=== PATIENT | female | born 1950 | race Caucasian/White ===

== ENCOUNTER 2017-10-25 23:05 | Emergency (ER) | payer MEDICARE, SELFPAY ==
[2017-10-25 23:15] VITALS: BP 160/74; PULSE 87; RESP 16; TEMP 36.3; O2SAT 97
[2017-10-25 23:59] LABS: Add Manual Diff / Slide Review NO; Basophils Percent Auto 0.8 % (0-2); Eosinophils Percent Auto 2.5 % (2-4); Hematocrit 38.7 % (36-46); Hemoglobin 13.1 g/dL (12.0-16.0); Lymphocytes Percent Auto 28.8 % (25-40); Mean Corpuscular HGB Conc 33.9 % (30-36); Mean Corpuscular Hemoglobin 29.3 PG (26-34); Mean Corpuscular Volume 86.3 fL (80-100); Monocytes Percent Auto 7.5 % (3-14); Neutrophils Absolute Auto 4600 /uL (3000-5900); Neutrophils Percent Auto 60.4 % (50-75); Platelet Count 259 X10^3/uL (150-400); Red Blood Cell Count 4.48 X10^6/uL (4.0-5.2); Red Cell Distribution Width 13.2 % (11.6-14.8); White Blood Cell Count 7.6 X10^3/uL (4.5-11.0)
[2017-10-26] LABS: RBC Urine 30-100/HPF (0-5/HPF)
[2017-10-26 00:01] LABS: Bacteria Urine Few (2-10); Culture Indicated Urine Specimen Cultured; Squamous Epithelial Cell Urine 0-1 /HPF; WBC Urine 0-1/HPF (0-5/HPF)
[2017-10-26 00:05] LABS: Alanine Aminotransferase 54 IU/L (9-52); Albumin Globulin Ratio 1.4 (1.0-2.8); Alkaline Phosphatase 141 U/L (38-126); Aspartate Aminotransferase 49 IU/L (14-36); BUN Creatinine Ratio 28.3 (6-22); Bilirubin Total 0.3 mg/dL (0.2-1.3); Blood Urea Nitrogen 17 mg/dL (7-17); Calcium 8.8 mg/dL (8.4-10.2); Carbon Dioxide 28 mmol/L (22-32); Chloride 102 mmol/L (98-107); Estimated Glomerular Filt Rate > 60.0 mL/min (>60); Globulin 2.9 g/dL (1.7-4.1); Glucose 137 mg/dL (80-110); HEMOLYSIS < 15 (0-50); Lipase 119 U/L (23-300); Potassium 3.9 mmol/L (3.4-5.1); Sodium 139 mmol/L (137-145); Total Protein 6.9 g/dL (6.3-8.2)
--- NOTE | 2017-10-26 00:07 | ED.FEMALEGU ---
HPI - Female Genitourinary General Chief complaint: Urogenital-Female Stated complaint: KIDNEY STONES AND VOMITING Time Seen by Provider: 10/25/17 23:14 Source: patient Mode of arrival: ambulatory Limitations: no limitations History of Present Illness HPI Narrative: 67-year-old female with a longstanding history of renal stones here for evaluation of which she states feels like a renal stone. States it has been going on for approximately a day. No fevers. Does have some dysuria. She states that in the past she has had to have lithotripsy to remove the stones. Has not tried anything at home for it. Related Data Home Medications Medication Instructions Recorded Confirmed No Known Home Medications 10/25/17 10/25/17 Allergies Allergy/AdvReac Type Severity Reaction Status Date / Time No Known Drug Allergies Allergy Verified 10/25/17 23:28 Review of Systems Constitutional Denies chills, Denies fever(s), Denies lethargy and Denies weakness Cardiovascular Denies dyspnea and Denies dyspnea on exertion Respiratory Denies cough, Denies dyspnea, Denies dyspnea on exertion and Denies wheezing Gastrointestinal Gastrointestinal: Reports abdominal pain, Denies melena, Denies constipation, Reports nausea and Denies vomiting Genitourinary Reports urinary frequency, Reports difficulty voiding, Reports dysuria, Reports flank pain, Denies urinary incontinence and Reports urinary urgency Musculoskeletal Denies back pain, Denies muscle weakness, Denies numbness and Denies tingling Neurologic Denies numbness, Denies tingling and Denies weakness Hematologic/Lymphatic Denies easy bruising Allergic/Immunologic Denies wheezing [facility] Social History Smoking Status: Never smoker Exam Initial Vital Signs Initial Vital Signs: Vital Signs Temperature 97.4 F L 10/25/17 23:15 Pulse Rate 87 10/25/17 23:15 Respiratory Rate 16 10/25/17 23:15 Blood Pressure 160/74 H 10/25/17 23:15 Pulse Oximetry 97 10/25/17 23:15 Resp Effort & Inspection: normal respiratory effort, able to speak in complete sentences, no respiratory distress and no use of accessory muscles Auscultation: clear to auscultation bilaterally, no rales, no rhonchi and no wheezes Cardio Rate: regular rate Rhythm: regular rhythm Heart Sounds: no click, no gallops, no murmurs and no rubs Pulses: normal peripheral pulses GI Inspection: non-distended Palpation: soft, no hepatosplenomegaly, No guarding, No pulsatile mass and No tender Auscultation: normal bowel sounds Back/Spine/Pelvis Back: No CVA tenderness Skin General: no rashes or lesions noted, No jaundice and No petechiae Neuro General: alert, oriented x3, gait normal and no focal motor deficits Speech: speech normal Course Orders Ordered: ED Orders 10/25/17 23:20 Urine Culture Stat Urine Microscopic Stat 10/25/17 23:45 Complete Blood Count AUTO DIFF Stat Comprehensive Metabolic Panel Stat Lipase Stat Vital Signs - 8 hr 10/25/17 23:15 10/26/17 00:28 Temperature 97.4 F L Pulse Rate 87 83 Respiratory Rate 16 18 Blood Pressure 160/74 H 150/89 H Pulse Oximetry 97 98 MDM - Female Genitourinary Lab Data Attestation: I reviewed the patient's lab results. Result diagrams: 10/25/17 23:45 10/25/17 23:45 Lab Results 10/25/17 10/25/17 10/25/17 Range/Units 23:20 23:45 23:45 WBC 7.6 (4.5-11.0) X10^3/uL RBC 4.48 (4.0-5.2) X10^6/uL Hgb 13.1 (12.0-16.0) g/dL Hct 38.7 (36-46) % MCV 86.3 (80-100) fL MCH 29.3 (26-34) PG MCHC 33.9 (30-36) % RDW 13.2 (11.6-14.8) % Plt Count 259 (150-400) X10^3/uL Neut % (Auto) 60.4 (50-75) % Lymph % (Auto) 28.8 (25-40) % [place] % (Auto) 7.5 (3-14) % Eos % (Auto) 2.5 (2-4) % Baso % (Auto) 0.8 (0-2) % Neut # (Auto) 4600 (3288-1827) /uL Sodium 139 (137-145) mmol/L Potassium 3.9 (3.4-5.1) mmol/L Chloride 102 (98-107) mmol/L Carbon Dioxide 28 (22-32) mmol/L BUN 17 (7-17) mg/dL Creatinine 0.60 (0.52-1.04) mg/dL Estimated GFR > 60.0 (>60) mL/min BUN/Creatinine Ratio 28.3 H (6-22) Glucose 137 H (80-110) mg/dL Calcium 8.8 (8.4-10.2) mg/dL Total Bilirubin 0.3 (0.2-1.3) mg/dL AST 49 H (14-36) IU/L ALT 54 H (9-52) IU/L Alkaline Phosphatase 141 H (38-126) U/L Total Protein 6.9 (6.3-8.2) g/dL Albumin 4.0 (3.5-5.0) g/dL Globulin 2.9 (1.7-4.1) g/dL Albumin/Globulin Ratio 1.4 (1.0-2.8) Lipase 119 (23-300) U/L Urine RBC 30-100/hpf H (0-5/HPF) Urine WBC 0-1/hpf (0-5/HPF) Ur Squamous Epith Cells 0-1 /hpf Urine Bacteria Few (2-10) H (None) Ur Culture Indicated? Specimen cultured Micro UA Comment Not Reportable MDM Narrative Medical decision making narrative: Patient use the restroom just prior to my evaluation him upon return patient states that she thinks that she passed the stone. She states that the pain that brought her into the emergency department has greatly improved. No signs of infection on her urinalysis. Her kidney function is at baseline. Patient did not want any pain medications here in the ER stating is how her symptoms have improved. She was given return precautions she expressed understanding and agreement with plan. Discharge Plan Departure Patient Disposition: Home, Self-Care Clinical Impression: Renal colic Discharge Date/Time: 10/26/17 00:22 Interventions: ED Discharge Assessment Last Done: 10/26/17 00:28 Instructions: Kidney Stones -- Adult Activity Restrictions/Additional Instructions: Continue all of your medications as instructed. Increase your fluid intake. Return to the emergency department for any new symptoms, worsening symptoms, vomiting, inability to urinate, or any other concerning symptoms. A culture of your urine was performed today. This does take a couple days to return. You will be called for any positive results. Prescriptions: No Action No Known Home Medications RF: 0
[2017-10-26 00:28] VITALS: BP 150/89; PULSE 83; RESP 18; O2SAT 98
== END 2017-10-26 00:22 | disposition home or self-care (01) ==
PROVIDERS: Emergency Provider Emergency Medicine
DX: N23 Unspecified renal colic (principal)
CPT/HCPCS: 36415; 80053; 81003; 81015; 83690; 85025; 87086; 99282; 99283

== ENCOUNTER 2018-06-22 21:19 | Emergency (ER) | payer OTHER, SELFPAY ==
[2018-06-22 21:38] VITALS: BP 167/66; PULSE 74; RESP 18; TEMP 36.9; O2SAT 97; BMI 28.3
[2018-06-22 21:55] LABS: RBC Urine 5-10/HPF (0-5/HPF)
[2018-06-22 21:56] LABS: Bacteria Urine Occasional (0-1); Mucus Urine 1+ (Negative); WBC Urine 0-1/HPF (0-5/HPF)
[2018-06-22 21:57] LABS: Culture Indicated Urine Specimen Cultured
--- NOTE | 2018-06-22 22:15 | ED.FEMALEGU ---
HPI - Female Genitourinary General Chief complaint: Urogenital-Female Stated complaint: thinks she has kidney stones Time Seen by Provider: 06/22/18 22:15 Source: patient Mode of arrival: ambulatory Limitations: no limitations History of Present Illness HPI Narrative: The patient was at rest at home. She developed sudden onset of right lower quadrant pain, the pain was rather severe. She has associated nausea. She has no emesis. She has no fever. She does have chills. She denies dysuria, she has not seen hematuria. She has a prior history of multiple kidney stones, she did pass a stone last summer. She has been asymptomatic since then until ton. She has no associated back pain. She has no diarrhea or other GI symptoms associated with the nausea. Related Data Previous Rx's Medication Instructions Recorded hydrocodone-acetaminophen 1 tab PO Q4-6H #14 tab 06/23/18 ondansetron 4 mg PO Q4H #14 tab 06/23/18 Allergies Allergy/AdvReac Type Severity Reaction Status Date / Time No Known Drug Allergies Allergy Verified 10/25/17 23:28 Review of Systems Review of Systems ROS Unobtainable: All systems reviewed & are unremarkable except as noted in HPI and below Constitutional Denies chills, Denies fever(s), Denies lethargy and Denies weakness Cardiovascular Denies chest pain, Denies irregular heart rhythm, Denies lightheadedness, Denies palpitations, Denies dyspnea and Denies orthopnea Respiratory Denies cough, Denies dyspnea and Denies wheezing Gastrointestinal Gastrointestinal: Reports abdominal pain (RLQ), Denies change in bowel habits, Denies diarrhea, Reports nausea and Denies vomiting Genitourinary Reports hematuria, Denies dysuria and Reports flank pain Musculoskeletal Denies back pain Neurologic Denies weakness Endocrine Denies palpitations Allergic/Immunologic Denies wheezing PFSH Medical History Kidney stones (Acute) Surgical History No history of previous surgery (Acute) Social History Smoking Status: Never smoker Exam Initial Vital Signs Initial Vital Signs: Vital Signs Temperature 98.4 F 06/22/18 21:38 Pulse Rate 74 06/22/18 21:38 Respiratory Rate 18 06/22/18 21:38 Blood Pressure 167/66 H 06/22/18 21:38 Pulse Oximetry 97 06/22/18 21:38 Const General: cooperative and well developed Nutritional Appearance: well nourished Orientation: alert, awake, oriented x3 and not confused HENNV Head: normocephalic and atraumatic Face and sinus: sinuses nontender, no sinus tenderness and No dry mucous membranes Mouth: oral mucosae normal and moist mucous membranes Teeth and gingiva: dentition normal Throat: tonsils normal and uvula midline Resp Effort & Inspection: normal respiratory effort, able to speak in complete sentences, no respiratory distress and no use of accessory muscles Auscultation: clear to auscultation bilaterally, no rales, no rhonchi and no wheezes Cardio Rate: regular rate Rhythm: regular rhythm Heart Sounds: no click, no gallops, no murmurs and no rubs Pulses: normal peripheral pulses GI Palpation: soft, no hepatosplenomegaly, No pulsatile mass and tender (Attending in the RLQ without distension, guarding or rebound.) Auscultation: normal bowel sounds Back/Spine/Pelvis Back: No CVA tenderness Skin General: no rashes or lesions noted, No jaundice and No petechiae Neuro General: alert, oriented x3, gait normal and no focal motor deficits Speech: speech normal Course Orders Ordered: ED Orders 06/22/18 20:50 Complete Blood Count AUTO DIFF Stat Comprehensive Metabolic Panel Stat Lipase Stat 06/22/18 21:30 Urine Culture Stat Urine Microscopic Stat 06/22/18 22:42 CT kidney ureter bladder (KUB) Stat Discontinued Medications Hydrocodone Bitart/Acetaminophen (Vicodin Prepack) 1 bottle MISC SEEINSTR ONE Stop: 06/23/18 00:17 Last Admin: 06/23/18 00:29 Dose: 1 bottle Sodium Chloride (Normal Saline 0.9%) 1,000 mls @ 1,000 mls/hr IV BOLUS ONE Stop: 06/22/18 23:19 Last Infusion: 06/23/18 00:39 Dose: 0 mls/hr Admin: 06/22/18 22:50 Dose: 1,000 mls/hr Ketorolac Tromethamine (Toradol) 15 mg IV NOW ONE Stop: 06/22/18 22:21 Last Admin: 06/22/18 22:49 Dose: 15 mg Ondansetron HCl (Zofran Odt Prepack) 1 bottle MISC SEEINSTR ONE Stop: 06/23/18 00:17 Last Admin: 06/23/18 00:29 Dose: 1 bottle Vital Signs - 8 hr 06/22/18 21:38 06/23/18 00:40 Temperature 98.4 F Pulse Rate 74 86 Respiratory Rate 18 18 Blood Pressure 167/66 H 169/69 H Pulse Oximetry 97 100 MDM - Female Genitourinary Lab Data Attestation: I reviewed the patient's lab results. Result diagrams: 06/22/18 20:50 06/22/18 20:50 Lab Results 06/22/18 06/22/18 06/22/18 Range/Units 20:50 20:50 21:30 WBC 12.7 H (4.5-11.0) X10^3/uL RBC 4.75 (4.0-5.2) X10^6/uL Hgb 13.9 (12.0-16.0) g/dL Hct 40.9 (36-46) % MCV 86.1 (80-100) fL MCH 29.3 (26-34) PG MCHC 34.1 (30-36) % RDW 13.1 (11.6-14.8) % Plt Count 270 (150-400) X10^3/uL Neut % (Auto) 82.6 H (50-75) % Lymph % (Auto) 11.9 L (25-40) % [place] % (Auto) 4.9 (3-14) % Eos % (Auto) 0.2 L (2-4) % Baso % (Auto) 0.4 (0-2) % Neut # (Auto) 12070 H (9374-1224) /uL Lymph # (Auto) 1500 (0098-1413) /uL [place] # (Auto) 600 (0-900) /uL Eos # (Auto) 0 (0-450) /uL Baso # (Auto) 100 (0-100) /uL Sodium 137 (137-145) mmol/L Potassium 4.1 (3.4-5.1) mmol/L Chloride 99 (98-107) mmol/L Carbon Dioxide 29 (22-32) mmol/L BUN 20 H (7-17) mg/dL Creatinine 0.80 (0.52-1.04) mg/dL Estimated GFR > 60.0 (>60) mL/min BUN/Creatinine Ratio 25.0 H (6-22) Glucose 191 H (80-110) mg/dL Calcium 9.4 (8.4-10.2) mg/dL Total Bilirubin 0.3 (0.2-1.3) mg/dL AST 34 (14-36) IU/L ALT 46 (9-52) IU/L Alkaline Phosphatase 164 H (38-126) U/L Total Protein 7.6 (6.3-8.2) g/dL Albumin 4.5 (3.5-5.0) g/dL Globulin 3.1 (1.7-4.1) g/dL Albumin/Globulin Ratio 1.5 (1.0-2.8) Lipase 164 (23-300) U/L Urine RBC 5-10/hpf H (0-5/HPF) Urine WBC 0-1/hpf (0-5/HPF) Urine Bacteria Occasional (0-1) (None) Urine Mucus 1+ H (Negative) Ur Culture Indicated? Specimen cultured Urine Dip Bedside Urine Glucose Negative Bedside Urine Bilirubin - Negative Bedside Urine Ketone - Negative Urine Specific [place] 1.015 Bedside Urine Occult Blood +++ Bedside Urine pH 7.0 Bedside Urine Protein + 30 Bedside Urine Urobilinogen - Negative Bedside Urine Nitrite - Negative Bedside Urine Leukocytes +/- 15 Esterase Imaging Data KUB CT: : Radiologist's impression: 3 mm right-sided obstructive uropathy due to a proximal right ureter stone. Multiple Bilateral nonobstructing renal stones. Discharge Plan Departure Patient Disposition: Home Clinical Impression: Calculus of right ureter, Bilateral nephrolithiasis Discharge Date/Time: 06/23/18 00:42 Interventions: ED Discharge Assessment Last Done: 06/23/18 00:40 Instructions: DI for Kidney Stones Activity Restrictions/Additional Instructions: Take Tylenol or Motrin as needed for pain. Take hydrocodone every 4 hr as needed for added pain control. Zofran every 4 hr as needed for nausea. Be sure you are drinking plenty of water, stay hydrated. Follow-up with Urology, I will give you contact information for Dr. Esparza. Return to the ER as needed. Prescriptions: New ondansetron 4 mg tablet,disintegrating 4 mg PO Q4H Qty: 14 RF: 0 hydrocodone-acetaminophen 5-300 mg tablet 1 tab PO Q4-6H Qty: 14 RF: 0 Referrals: Yris Esparza MD [Physician] -
--- NOTE | 2018-06-22 22:42 | DI.CT.S_ITS ---
PROCEDURE: CT KIDNEY URETER BLADDER (KUB) INDICATIONS: RLQ pain. Hematuria TECHNIQUE: Noncontrast 5 mm thick sections acquired from the diaphragms to the symphysis. 5 mm thick coronal and sagittal reformats were then performed. For radiation dose reduction, the following was used: automated exposure control, adjustment of mA and/or kV according to patient size. COMPARISON: None. FINDINGS: Image quality: There is metallic streak artifact from patient's right hip prosthesis. Lung bases: There is mild dependent atelectasis bilaterally. Heart size is normal. Urinary system: There is an obstructing stone in the proximal right ureter measuring up to 4 mm with associated mild right hydronephrosis with perinephric stranding. Multiple additional bilateral nonobstructing renal stones are demonstrated, approximately 15 on the right with the largest measuring up to 4 mm and at least 20 on the left with the largest measuring up to 6 mm. Bladder wall thickness is normal; no calcified bladder stones. Other solid organs: There is hypoattenuation of the liver consistent with fatty infiltration. Gallbladder appears within normal limits without calcified gallstones. Pancreas is normal in contours. Spleen is normal in size. No adrenal nodules. Peritoneum and bowel: Unenhanced bowel loops demonstrate normal wall thickness and caliber. No evidence of appendicitis. No free fluid or air. Nodes and vessels: No retroperitoneal or mesenteric adenopathy by size criteria. Aorta and inferior vena cava are normal in caliber. Abdominal wall: No ventral hernias. Pelvis: The uterus is surgically absent. No free pelvic fluid. No inguinal hernias or adenopathy. Bones: No suspicious bony lesions. No vertebral body compression fractures. IMPRESSION: 1. Small obstructing 4 mm stone within the proximal right ureter with associated mild right hydronephrosis. 2. Numerous additional bilateral nonobstructing renal stones as described. 3. Hepatic steatosis. Dictated by: Sim Enriquez M.D. on 06/23/2018 at 8:16 Approved by: Sim Enriquez M.D. on 06/23/2018 at 8:21
[2018-06-22] MEDS: KETOROLAC 60 MG/2 ML VIAL 15 MG IV (22:49)
[2018-06-22] MEDS: SODIUM CHLORIDE 0.9% 1,000 ML 1000 ML IV (22:50)
--- NOTE | 2018-06-22 22:53 | PC.NURSE ---
drawn by lab
[2018-06-22 23:02] LABS: Add Manual Diff / Slide Review NO; Basophils Absolute Auto 100 /uL (0-100); Basophils Percent Auto 0.4 % (0-2); Eosinophils Absolute Auto 0 /uL (0-450); Eosinophils Percent Auto 0.2 % (2-4); Hematocrit 40.9 % (36-46); Hemoglobin 13.9 g/dL (12.0-16.0); Lymphocytes Absolute Auto 1500 /uL (1100-4500); Lymphocytes Percent Auto 11.9 % (25-40); Mean Corpuscular HGB Conc 34.1 % (30-36); Mean Corpuscular Hemoglobin 29.3 PG (26-34); Mean Corpuscular Volume 86.1 fL (80-100); Monocytes Absolute Auto 600 /uL (0-900); Monocytes Percent Auto 4.9 % (3-14); Neutrophils Absolute Auto 10500 /uL (1500-7000); Neutrophils Percent Auto 82.6 % (50-75); Platelet Count 270 X10^3/uL (150-400); Red Blood Cell Count 4.75 X10^6/uL (4.0-5.2); Red Cell Distribution Width 13.1 % (11.6-14.8); White Blood Cell Count 12.7 X10^3/uL (4.5-11.0)
[2018-06-22 23:10] LABS: Alanine Aminotransferase 46 IU/L (9-52); Albumin 4.5 g/dL (3.5-5.0); Albumin Globulin Ratio 1.5 (1.0-2.8); Alkaline Phosphatase 164 U/L (38-126); Aspartate Aminotransferase 34 IU/L (14-36); Bilirubin Total 0.3 mg/dL (0.2-1.3); Blood Urea Nitrogen 20 mg/dL (7-17); Calcium 9.4 mg/dL (8.4-10.2); Carbon Dioxide 29 mmol/L (22-32); Chloride 99 mmol/L (98-107); Estimated Glomerular Filt Rate > 60.0 mL/min (>60); Globulin 3.1 g/dL (1.7-4.1); Glucose 191 mg/dL (80-110); HEMOLYSIS < 15 (0-50); Lipase 164 U/L (23-300); Potassium 4.1 mmol/L (3.4-5.1); Sodium 137 mmol/L (137-145); Total Protein 7.6 g/dL (6.3-8.2)
[2018-06-23] MEDS: ONDANSETRON 4 MG ODT PREPACK 1 BOTTLE MISC (00:29)
[2018-06-23] MEDS: HYDROCODONE/ACET 5/325 PREPACK 1 BOTTLE MISC (00:29)
[2018-06-23 00:40] VITALS: BP 169/69; PULSE 86; RESP 18; O2SAT 100
== END 2018-06-23 00:42 | disposition home or self-care (01) ==
PROVIDERS: Emergency Provider Emergency Medicine
DX: N20.1 Calculus of ureter (principal); N20.0 Calculus of kidney
CPT/HCPCS: 36415; 74176; 80053; 81003; 81015; 83690; 85025; 87086; 96361; 96374; 99283; 99284; J1885

== ENCOUNTER 2021-08-20 08:09 | Emergency (ER) | payer OTHER, SELFPAY ==
[2021-08-20] VITALS (8 sets, daily range): BP systolic 116–142; BP diastolic 59–83; PULSE 94–133; RESP 14–22; TEMP 36.3; O2SAT 97–99; BMI 21.9
--- NOTE | 2021-08-20 08:31 | ED.GENADULT ---
HPI - General Adult General Chief complaint: Extremity Problem,Nontraumatic Stated complaint: Right hip pain post op THR Time Seen by Provider: 08/20/21 08:20 Source: patient Mode of arrival: Family Vehicle Limitations: no limitations History of Present Illness HPI narrative: Patient is a 71-year-old female who is here for evaluation of which she thinks is a blood clot in her right leg. She had a right hip replacement done many years ago. States she started to have pain in her right hip several years ago. She states she finally got an x-ray which shows loosening of the prosthesis. She has a follow-up with Orthopedics on Saturday of this week for this. She is also having pain in her right knee in her right calf muscle. She received some information after her right hip replacement many years ago about a DVT. She thinks she has a DVT today. She has never had a DVT in the past. She is not on blood thinners. She also states she does have occasional fast racing heart. She states that every time that she has been in to her providers they focus on her fast heart rate and not her right leg pain for which she is here for today. She states that she has been told that her heart rate is elevated at baseline. She is not currently having any chest pain or shortness of breath. She is not currently on any medications for fast heart rate. She does not remember ever having an echocardiogram. Related Data Previous Rx's Medication Instructions Recorded hydrocodone 5 mg-acetaminophen 300 1 tab PO Q4-6H #14 tab 06/23/18 mg tablet ondansetron 4 mg disintegrating 4 mg PO Q4H #14 tab 06/23/18 tablet Allergies Allergy/AdvReac Type Severity Reaction Status Date / Time No Known Drug Allergies Allergy Verified 10/25/17 23:28 Review of Systems Review of Systems ROS Unobtainable: All systems reviewed & are unremarkable except as noted in HPI and below Musculoskeletal Musculoskeletal: Reports system reviewed and no additional complaints, except as documented and Reports as per HPI Patient History Medical History Kidney stones Surgical History (Updated 06/22/18 @ 22:45 by Tejinder Lindsey MD) No history of previous surgery Social History Smoking Status: Never smoker Smoking Status: Never smoker alcohol intake frequency: 0-2 drinks per day Substance Use Type: does not use Exam Initial Vital Signs Initial Vital Signs: Vital Signs Temperature 97.4 F L 08/20/21 08:23 Pulse Rate 133 H 08/20/21 08:23 Respiratory Rate 22 08/20/21 08:23 Blood Pressure 116/59 L 08/20/21 08:23 Pulse Oximetry 98 08/20/21 08:23 HENMT Head: normal to inspection and normocephalic Resp Effort & Inspection: normal respiratory effort Auscultation: clear to auscultation bilaterally Cardio Rate: tachycardic Rhythm: regular rhythm Skin General: no rashes or lesions noted Neuro General: patient alert, patient awake, patient oriented x3 and moves all extremities Extrem Other: Patient has tenderness along the right calf muscle in the right knee however there is no swelling. No redness. Patient can flex and extend at the ankle and the knee in the hip has some discomfort with flexion at the hip. Psych Appearance: grossly normal and well kempt Course Orders Ordered: ED Orders 08/20/21 08:35 US periph venous low extrem rt Stat EKG-12 Lead Stat Vital Signs Vital signs: Vital Signs - 8 hr 08/20/21 08:23 08/20/21 08:33 08/20/21 08:37 Temperature 97.4 F L Pulse Rate 133 H 112 H 109 H Respiratory Rate 22 21 Blood Pressure 116/59 L Pulse Oximetry 98 97 08/20/21 08:57 08/20/21 09:00 08/20/21 09:01 Temperature Pulse Rate 101 H 101 H 100 H Respiratory Rate 14 16 Blood Pressure 129/60 Pulse Oximetry 97 98 08/20/21 09:30 Temperature Pulse Rate 96 H Respiratory Rate 21 Blood Pressure 142/68 H Pulse Oximetry 98 Medical Decision Making Imaging Data US - DVT: Radiologist's Impression: [address] [address] Ultrasound Report Signed Patient: Maria T Vang MR#: [id number] : 1950 Acct:[id number] Age/Sex: 71 / F Date of Service: 08/20/21 Loc: ED Accession Number: [id number] ?? Procedure: US periph venous low extrem rt Ordering Provider: Tho Redmond D.O. PROCEDURE:? US PERIPH VENOUS LOW EXTREM RT ? INDICATIONS:? PAIN ? TECHNIQUE:? Real-time imaging, as well as color and pulse Doppler interrogation, were performed of the lower extremity deep veins from the inguinal ligament to the popliteal fossa.? ? COMPARISON:? None. ? FINDINGS:? The common femoral, femoral and popliteal veins are normally compressible, and free of intraluminal thrombus.? Color and pulse Doppler demonstrate normal phasic intraluminal flow.? There is normal augmentation response to distal compression maneuver. ? ? IMPRESSION:? ? Negative for deep venous thrombosis. ? ? Dictated by: Doug Panchal M.D. on 08/20/2021 at 8:22 ? ? Approved by: Doug Panchal M.D. on 08/20/2021 at 8:23 ECG Data Attestation: I personally reviewed and interpreted this ECG as follows: Prior ECG tracings: not available for review Interpretation: Sinus tachycardia Ventricular rate 106 Normal axis Normal QRS Normal QTC Nonspecific ST T wave changes MDM Narrative Medical decision making narrative: Patient's right leg symptoms most likely related to the known issues she is having with her right hip prosthesis. She has a follow-up with Orthopedics artery scheduled for later this week. No DVT noted on the ultrasound my pretest probability is pretty low for this to begin with. There is no signs of any infection. Patient is tachycardic. According to her report she has had issues with tachycardia in the past. This improved to heart rate less than 105 sent during her time here in the ER. I feel patient be safely discharged home without further workup here in the ER. She was given return precautions. She expressed understanding and agreement. Discharge Plan Departure Patient Disposition: Home Clinical Impression: Acute leg pain Instructions: DI for Leg Pain Activity Restrictions/Additional Instructions: I do recommend that you continue to take all of your medications as directed and keep all of your scheduled medical appointments. Return to the emergency department for any new or worsening symptoms. Prescriptions: No Action ondansetron 4 mg tablet,disintegrating 4 mg PO Q4H Qty: 14 0RF hydrocodone-acetaminophen 5-300 mg tablet 1 tab PO Q4-6H Qty: 14 0RF Referrals: Chani Harris MD [Primary Care Provider] -
--- NOTE | 2021-08-20 08:35 | DI.US.S_ITS ---
PROCEDURE: US PERIPH VENOUS LOW EXTREM RT INDICATIONS: PAIN TECHNIQUE: Real-time imaging, as well as color and pulse Doppler interrogation, were performed of the lower extremity deep veins from the inguinal ligament to the popliteal fossa. COMPARISON: None. FINDINGS: The common femoral, femoral and popliteal veins are normally compressible, and free of intraluminal thrombus. Color and pulse Doppler demonstrate normal phasic intraluminal flow. There is normal augmentation response to distal compression maneuver. IMPRESSION: Negative for deep venous thrombosis. Dictated by: Doug Panchal M.D. on 08/20/2021 at 8:22 Approved by: Doug Panchal M.D. on 08/20/2021 at 8:23
== END 2021-08-20 10:12 | disposition home or self-care (01) ==
PROVIDERS: Emergency Provider Emergency Medicine; PCP Family Medicine
DX: M79.661 Pain in right lower leg (principal); R00.0 Tachycardia, unspecified
CPT/HCPCS: 93005; 93971; 99283

== ENCOUNTER 2021-08-25 20:10 | Inpatient (IN) | payer OTHER, SELFPAY ==
[2021-08-25] VITALS (9 sets, daily range): BP systolic 140–178; BP diastolic 69–84; PULSE 104–124; RESP 18–22; TEMP 36.5–36.9; O2SAT 95–100; BMI 22.6
--- NOTE | 2021-08-25 20:21 | ED.LOWEXIN ---
HPI - Extremity Injury (Lower) General Chief Complaint: Extremity Injury, Lower Stated Complaint: Fall Time Seen by Provider: 08/25/21 20:21 Source: EMS Mode of arrival: EMS History of Present Illness HPI Narrative: Patient is a 71-year-old female who has a recent diagnosis of diabetes she was started on metformin. Presents today after fall down 8 stairs. She is complaining of pain in her right knee. She denies head injury or loss of consciousness. No antiplatelet or anticoagulation medication. She denies any chest pain or shortness of breath. She says it was a ?freak accident she thinks she slipped and fell. However she does not recall exactly what happened. She has no numbness or tingling in her foot able to move her toes. Related Data Allergies Allergy/AdvReac Type Severity Reaction Status Date / Time No Known Drug Allergies Allergy Verified 08/25/21 20:17 Review of Systems Review of Systems Narrative: GENERAL: Denies chills, fatigue, malaise, fever, sweats, travel HEENT: Denies sinus pain, ear pain, sore throat, difficulty swallowing, neck pain RESPIRATORY: Denies dyspnea, cough, wheezing, hemoptysis, sputum. CARDIOVASCULAR: Denies chest pain, palpitations, orthopnea, edema GASTROINTESTINAL: Denies nausea, vomiting, abdominal pain, diarrhea, constipation, melena. : Denies dysuria, frequency, incontinence, hematuria, urinary retention, flank pain. MUSCULOSKELETAL: See HPI SKIN: No rash, no erythema, no pruritus NEUROLOGIC: Denies weakness, dizziness, headache, numbness, change in speech, confusion PSYCHIATRIC: No concerning psychosocial issues. 12 point review of systems is negative except for those stated above and HPI Patient History Medical History History of fracture of foot Kidney stones Surgical History History of right hip replacement Hx of section Hx of hysterectomy Hx of tubal ligation Family History Mother Diabetes mellitus Osteoporosis Father Medical history unknown Social History household members: spouse Smoking Status: Never smoker Smoking Status: Never smoker alcohol intake frequency: 0-2 drinks per day Substance Use Type: does not use Exam Initial Vital Signs Initial Vital Signs: Vital Signs Temperature 98.5 F 08/25/21 20:14 Pulse Rate 123 H 08/25/21 20:14 Respiratory Rate 22 08/25/21 20:14 Blood Pressure 178/81 H 08/25/21 20:14 Pulse Oximetry 100 08/25/21 20:14 GENERAL: Alert very pleasant 71-year-old female HEENT: Head atraumatic,EOMI, pupils reactive, face symmetric, moist mucous membranes CARDIOVASCULAR: Regular rate and rhythm without murmurs, rubs or gallops. RESPIRATORY: Breath sounds equal bilaterally, no wheezes rales or rhonchi. ABDOMEN: Soft, nontender. Normoactive bowel sounds all 4 quadrants. No guarding or rebound. EXTREMITIES: Normal range of motion, no clubbing or edema. Neurovascularly intact Right lower extremity pain superior knee and distal femur area no significant knee swelling or erythema nontender pelvis distal pedal pulse intact NEUROLOGICAL: Alert and oriented x4. SKIN: Warm, dry, no laceration, no petechiae, no rashes or lesions. Course Orders Ordered: ED Orders 08/25/21 20:26 Chest [XR chest 1V] Stat XR femur RT min 2V Stat XR knee RT 1to2V Stat 08/25/21 20:35 CBC Auto Diff [Complete Blood Count AUTO DIFF] Stat CMP [Comprehensive Metabolic Panel] Stat Hemoglobin A1C% w Est Avg Glu Stat 08/25/21 22:44 COVID19 -Nasal swab/Pre-Proc Stat Acetaminophen (Acetaminophen 325 Mg Tablet) 650 mg PO Q6HR PRN PRN Reason: Fever/Mild Pain (1-3) Dextrose (Dextrose 50 % In Water 25 Gm/50 Ml Syringe) 25 gm IV PRN PRN PRN Reason: Hypoglycemia Docusate Sodium (Docusate 100 Mg Capsule) 100 mg PO BID ALLEY Hydromorphone HCl (Hydromorphone 0.5 Mg Inj) 0.5 mg IV Q3H PRN PRN Reason: Breakthrough pain only (8-10) Lactated Ringer's (Lactated Ringers) 1,000 mls @ 100 mls/hr IV CONT ALLEY Stop: 09/25/21 08:59 Last Admin: 08/26/21 00:36 Dose: 100 mls/hr Documented by: JOHN Insulin Glargine (Insulin Glargine 100 Unit/Ml 3ml Pen) 10 unit SUBCUT 2100 ALLEY Insulin Human Lispro (Insulin Lispro 100 Unit/Ml 3ml Vial) 0 unit SUBCUT ACHS [facility]; Protocol Metoprolol Tartrate (Metoprolol Ir 25 Mg Tablet) 25 mg PO BID [facility] Last Admin: 08/26/21 00:38 Dose: 25 mg Documented by: JOHN Morphine Sulfate (Morphine 4 Mg/Ml Inj) 4 mg IV Q4HR PRN PRN Reason: Pain, Severe (7-10) Last Admin: 08/26/21 00:36 Dose: 4 mg Documented by: JOHN Naloxone HCl (Naloxone 0.4 Mg/Ml Vial) 0.2 mg IV Q2MIN PRN PRN Reason: Opiate Reversal Ondansetron HCl (Ondansetron 4 Mg/2 Ml Inj) 4 mg IV Q6HR PRN PRN Reason: Nausea And Vomiting Last Admin: 08/26/21 00:36 Dose: 4 mg Documented by: JOHN Discontinued Medications Hydromorphone HCl (Hydromorphone 0.5 Mg Inj) 0.5 mg IV NOW ONE Stop: 08/25/21 20:27 Last Admin: 08/25/21 20:34 Dose: Not Given Documented by: ATAYLOR Morphine Sulfate (Morphine 2 Mg/Ml Inj) 2 mg IV NOW ONE Stop: 08/25/21 20:36 Last Admin: 08/25/21 20:38 Dose: 2 mg Documented by: ATAYLOR Morphine Sulfate (Morphine 2 Mg/Ml Inj) 2 mg IV NOW ONE Stop: 08/25/21 22:20 Last Admin: 08/25/21 22:40 Dose: 2 mg Documented by: SIVA Vital Signs Vital signs: Vital Signs - 8 hr 08/25/21 20:14 08/25/21 20:36 08/25/21 21:00 Temperature 98.5 F Pulse Rate 123 H 124 H 111 H Respiratory Rate 22 Blood Pressure 178/81 H Pulse Oximetry 100 95 99 08/25/21 21:15 08/25/21 21:30 08/25/21 22:00 Temperature Pulse Rate 108 H 106 H 107 H Respiratory Rate 20 Blood Pressure 156/73 H Pulse Oximetry 98 98 99 08/25/21 22:30 08/25/21 22:44 Temperature Pulse Rate 104 H 115 H Respiratory Rate 21 18 Blood Pressure 157/69 H Pulse Oximetry 97 98 MDM - Extremity Injury (Lower) Lab Data Result diagrams: 08/25/21 20:35 08/25/21 20:35 Labs: Lab Results 08/25/21 08/25/21 08/25/21 Range/Units 20:35 20:35 20:35 WBC 10.3 (4.5-11.0) X10^3/uL RBC 4.88 (4.0-5.2) X10^6/uL Hgb 14.8 (12.0-16.0) g/dL Hct 42.3 (36-46) % MCV 86.7 (80-100) fL MCH 30.2 (26-34) PG MCHC 34.9 (30-36) % RDW 12.3 (11.6-14.8) % Plt Count 336 (150-400) X10^3/uL Neut % (Auto) 50.2 (50-75) % Lymph % (Auto) 41.8 H (25-40) % Maries % (Auto) 6.6 (3-14) % Eos % (Auto) 0.7 L (2-4) % Baso % (Auto) 0.7 (0-2) % Neut # (Auto) 5200 (8493-0198) /uL Lymph # (Auto) 4300 (1012-8067) /uL Maries # (Auto) 700 (0-900) /uL Eos # (Auto) 100 (0-450) /uL Baso # (Auto) 100 (0-100) /uL Platelet Estimate Adequate on smear RBC Morphology Not Reportable Sodium 134 L (137-145) mmol/L Potassium 3.9 (3.4-5.1) mmol/L Chloride 98 (98-107) mmol/L Carbon Dioxide 20 L (22-32) mmol/L BUN 27 H (7-17) mg/dL Creatinine 0.65 (0.52-1.04) mg/dL Estimated GFR > 60.0 (>60) mL/min BUN/Creatinine Ratio 41.5 H (6-22) Glucose 442 H (80-110) mg/dL Hemoglobin A1c 13.7 H (4.0-6.0) % Calcium 9.9 (8.4-10.2) mg/dL Total Bilirubin 0.7 (0.2-1.3) mg/dL AST 33 (14-36) IU/L ALT 38 H (<35) IU/L Alkaline Phosphatase 140 H (38-126) U/L Total Protein 7.3 (6.3-8.2) g/dL Albumin 4.4 (3.5-5.0) g/dL Globulin 2.9 (1.7-4.1) g/dL Albumin/Globulin Ratio 1.5 (1.0-2.8) TSH (0.47-4.68) uIU/mL Free T4 (0.78-2.19) ng/dL SARS-CoV-2 (PCR) (Negative) 08/25/21 08/25/21 Range/Units 20:35 22:44 WBC (4.5-11.0) X10^3/uL RBC (4.0-5.2) X10^6/uL Hgb (12.0-16.0) g/dL Hct (36-46) % MCV (80-100) fL MCH (26-34) PG MCHC (30-36) % RDW (11.6-14.8) % Plt Count (150-400) X10^3/uL Neut % (Auto) (50-75) % Lymph % (Auto) (25-40) % Maries % (Auto) (3-14) % Eos % (Auto) (2-4) % Baso % (Auto) (0-2) % Neut # (Auto) (7345-0792) /uL Lymph # (Auto) (2823-4434) /uL Maries # (Auto) (0-900) /uL Eos # (Auto) (0-450) /uL Baso # (Auto) (0-100) /uL Platelet Estimate RBC Morphology Sodium (137-145) mmol/L Potassium (3.4-5.1) mmol/L Chloride (98-107) mmol/L Carbon Dioxide (22-32) mmol/L BUN (7-17) mg/dL Creatinine (0.52-1.04) mg/dL Estimated GFR (>60) mL/min BUN/Creatinine Ratio (6-22) Glucose (80-110) mg/dL Hemoglobin A1c (4.0-6.0) % Calcium (8.4-10.2) mg/dL Total Bilirubin (0.2-1.3) mg/dL AST (14-36) IU/L ALT (<35) IU/L Alkaline Phosphatase (38-126) U/L Total Protein (6.3-8.2) g/dL Albumin (3.5-5.0) g/dL Globulin (1.7-4.1) g/dL Albumin/Globulin Ratio (1.0-2.8) TSH 18.00 H (0.47-4.68) uIU/mL Free T4 1.70 (0.78-2.19) ng/dL SARS-CoV-2 (PCR) Negative (Negative) Imaging Data Extremity x-ray #1: Radiologist's Impression: PROCEDURE:? XR FEMUR RT MIN 2V ? INDICATIONS:? fall down stair ? TECHNIQUE:? 4 views of the femur were acquired.? ? COMPARISON:? None. ? FINDINGS:? ? Bones:? There is a mildly displaced fracture within the distal femur involving the distal shaft extending to the medial femoral condyle.? A right hip prosthesis is present.? No periprosthetic fractures or dislocation.? Visualized bony pelvis appears intact. ? Soft tissues:? No suspicious soft tissue calcifications or masses.? ? IMPRESSION:? ? 1. Mildly displaced fracture of the distal right femur. ? ? Dictated by: Sim Enriquez M.D. on 08/25/2021 at 22:14 ? ? Extremity x-ray #2: Radiologist's Impression: PROCEDURE:? XR KNEE RT 1TO2V ? INDICATIONS:? fall down stairs ? TECHNIQUE:? 2 views of the knee were acquired.? ? COMPARISON:? None. ? FINDINGS:? ? Bones:? There is a mildly displaced fracture involving the distal femoral shaft medially with extension to the medial femoral condyle.? This includes extension to the right knee joint.? The visualized proximal tibia and fibula appear intact. ? Soft tissues:? There is a moderate right knee joint effusion with a lipohemarthrosis.? No suspicious soft tissue calcifications.? ? ? IMPRESSION:? ? 1. Mildly displaced distal femoral fracture extending to the knee joint. ? 2. Moderate joint effusion with a lipohemarthrosis. ? ? Dictated by: Sim Enriquez M.D. on 08/25/2021 at 22:16? Chest x-ray: Radiologist's Impression: PROCEDURE:? XR CHEST 1V ? INDICATIONS:? fall down stairs ? TECHNIQUE:? One view of the chest was acquired.? ? COMPARISON:? None. ? FINDINGS:? ? Surgical changes and devices:? None.? ? Lungs and pleura:? Lungs are clear.? No pleural effusions or pneumothorax.? ? Mediastinum:? Mediastinal contours appear normal.? Heart size is normal.? ? Bones and chest wall:? No displaced fractures identified.? No suspicious bony lesions.? Overlying soft tissues appear unremarkable.? ? IMPRESSION:? ? 1.? No definite acute traumatic abnormality. ? ? Dictated by: Sim Enriquez M.D. on 08/25/2021 at 22:13 ? ? Approved by: Sim Enriquez M.D. on 08/25/2021 at 22:14? MDM Narrative Medical decision making narrative: Patient is found to have minimally displaced distal femur fracture. Neurologically she is intact no sign of head trauma. Chest x-ray does not show any abnormality. Blood work does reveal that she is a poorly controlled diabetic. Did discuss with Dr. Lindsay orthopedics who states patient will need surgical repair in the morning request NPO and hemoglobin A1c. Patient is noted to be tachycardic in the ED but sinus on the monitor. She has absolutely no chest pain she has a history of a tachy arrhythmia that she is unsure of the details. NICOLLE Booker accepts patient Discharge Plan Departure Patient Disposition: Admitted As Inpatient Clinical Impression: Femoral distal fracture Admit Date/Time: 08/25/21 22:51 Admit Provider: Cassandra Xiong
--- NOTE | 2021-08-25 20:26 | DI.RAD.S_ITS ---
PROCEDURE: XR CHEST 1V INDICATIONS: fall down stairs TECHNIQUE: One view of the chest was acquired. COMPARISON: None. FINDINGS: Surgical changes and devices: None. Lungs and pleura: Lungs are clear. No pleural effusions or pneumothorax. Mediastinum: Mediastinal contours appear normal. Heart size is normal. Bones and chest wall: No displaced fractures identified. No suspicious bony lesions. Overlying soft tissues appear unremarkable. IMPRESSION: 1. No definite acute traumatic abnormality. Dictated by: Sim Enriquez M.D. on 08/25/2021 at 22:13 Approved by: Sim Enriquez M.D. on 08/25/2021 at 22:14
--- NOTE | 2021-08-25 20:26 | DI.RAD.S_ITS ---
PROCEDURE: XR FEMUR RT MIN 2V INDICATIONS: fall down stair TECHNIQUE: 4 views of the femur were acquired. COMPARISON: None. FINDINGS: Bones: There is a mildly displaced fracture within the distal femur involving the distal shaft extending to the medial femoral condyle. A right hip prosthesis is present. No periprosthetic fractures or dislocation. Visualized bony pelvis appears intact. Soft tissues: No suspicious soft tissue calcifications or masses. IMPRESSION: 1. Mildly displaced fracture of the distal right femur. Dictated by: Sim Enriquez M.D. on 08/25/2021 at 22:14 Approved by: Sim Enriquez M.D. on 08/25/2021 at 22:16
--- NOTE | 2021-08-25 20:26 | DI.RAD.S_ITS ---
PROCEDURE: XR KNEE RT 1TO2V INDICATIONS: fall down stairs TECHNIQUE: 2 views of the knee were acquired. COMPARISON: None. FINDINGS: Bones: There is a mildly displaced fracture involving the distal femoral shaft medially with extension to the medial femoral condyle. This includes extension to the right knee joint. The visualized proximal tibia and fibula appear intact. Soft tissues: There is a moderate right knee joint effusion with a lipohemarthrosis. No suspicious soft tissue calcifications. IMPRESSION: 1. Mildly displaced distal femoral fracture extending to the knee joint. 2. Moderate joint effusion with a lipohemarthrosis. Dictated by: Sim Enriquez M.D. on 08/25/2021 at 22:16 Approved by: Sim Enriquez M.D. on 08/25/2021 at 22:18
[2021-08-25] MEDS: MORPHINE 2 MG/ML INJ IV ×2 (20:38→22:40)
[2021-08-25 22:44] LABS: Basophils Absolute Auto 100 /uL (0-100); Basophils Percent Auto 0.7 % (0-2); Eosinophils Absolute Auto 100 /uL (0-450); Eosinophils Percent Auto 0.7 % (2-4); Hematocrit 42.3 % (36-46); Hemoglobin 14.8 g/dL (12.0-16.0); Lymphocytes Absolute Auto 4300 /uL (1100-4500); Lymphocytes Percent Auto 41.8 % (25-40); Mean Corpuscular HGB Conc 34.9 % (30-36); Mean Corpuscular Hemoglobin 30.2 PG (26-34); Mean Corpuscular Volume 86.7 fL (80-100); Monocytes Absolute Auto 700 /uL (0-900); Monocytes Percent Auto 6.6 % (3-14); Neutrophils Absolute Auto 5200 /uL (1500-7000); Neutrophils Percent Auto 50.2 % (50-75); Platelet Count 336 X10^3/uL (150-400); Red Blood Cell Count 4.88 X10^6/uL (4.0-5.2); Red Cell Distribution Width 12.3 % (11.6-14.8); White Blood Cell Count 10.3 X10^3/uL (4.5-11.0)
[2021-08-25 22:47] LABS: Add Manual Diff / Slide Review SLIDE REVIEW
[2021-08-25 22:50] LABS: Alanine Aminotransferase 38 IU/L (<35); Albumin 4.4 g/dL (3.5-5.0); Albumin Globulin Ratio 1.5 (1.0-2.8); Alkaline Phosphatase 140 U/L (38-126); Aspartate Aminotransferase 33 IU/L (14-36); BUN Creatinine Ratio 41.5 (6-22); Bilirubin Total 0.7 mg/dL (0.2-1.3); Blood Urea Nitrogen 27 mg/dL (7-17); Calcium 9.9 mg/dL (8.4-10.2); Carbon Dioxide 20 mmol/L (22-32); Chloride 98 mmol/L (98-107); Estimated Glomerular Filt Rate > 60.0 mL/min (>60); Globulin 2.9 g/dL (1.7-4.1); Glucose 442 mg/dL (80-110); HEMOLYSIS 25 (0-50); Potassium 3.9 mmol/L (3.4-5.1); Sodium 134 mmol/L (137-145); Total Protein 7.3 g/dL (6.3-8.2)
[2021-08-25 23:02] LABS: Hemoglobin A1C% w Est Avg Glu 13.7 % (4.0-6.0)
[2021-08-25 23:05] LABS: COVID19 -Nasal RAPID Negative (Negative)
[2021-08-25 23:16] LABS: Platelet Estimate Adequate on smear
--- NOTE | 2021-08-25 23:56 | P.HP_ITS ---
History of Present Illness History of Present Illness Date Patient Seen: 08/25/21 Time Patient Seen: 23:56 Chief complaint: Fall Narrative: Maria T Vaughn is a 71-year-old female with a recent new diagnosis of diabetes type 2, was descending her stairs in her home when she slipped and fell 2 steps from the bottom. She states she does not know what happened only that she thought it was from wearing thin socks that she slept. She did not recall passing out, though she is currently feeling ?fuzzy? due to the medications she received in the emergency room. She states she has a history of ?racing heart? and has apparently lost 40 lb without trying over the past 6 months. She is in the process of getting connected with a new PCP. She denies headaches, hitting her head, shortness of breath, nausea vomiting, abdominal pain, diarrhea or constipation, she does find painful to the urinate due to having to move around. She does endorse having bilateral hip pain that involves nerve pain down her leg, she was told that she had a bone on bone. States that she was diagnosed about 2 weeks ago with diabetes type 2, she was initiated on metformin however she states that it gave her nausea and that she stop taking it. States that she is changing physicians but does not know the name of the physician she is changing to, she believes it might be [facility]. She apparently left everything at home and does not have any information on when her next a ppointments are. Hip and knee x-rays ordered in the emergency department reported out a mildly displaced distal femoral fracture extending to the knee joint and moderate joint effusions with the Lipo hemarthrosis of the right knee. She is afebrile, blood pressure 140/84, heart rate 121, respiratory rate 20, oxygen saturation 98% on room air, she weighs 54.4 kg with a BMI of 22.6. WBC is unremarkable, sodium is 134, BUN 27, glucose 442, her A1c is 13.7, ALT is mildly elevated at 38 and her alk phos is 140, and COVID-19 PCR is negative. Patient History Medical History History of fracture of foot Kidney stones Surgical History History of right hip replacement Hx of section Hx of hysterectomy Hx of tubal ligation Family & Social History Family History Mother Diabetes mellitus Osteoporosis Father Medical history unknown Social History: household members spouse Prior Living Arrangements House Safety & Behavioral: Feels Safe in Current Yes Environment Been Physically Hurt or No Threatened By a Person Suicidal Ideation Description None Suicide Plan Description No Plan Tobacco & Substance use: Smoking Status Never smoker alcohol intake frequency Non-drinker Substance Use Type does not use Meds Home Medications and Allergies Allergies Allergy/AdvReac Type Severity Reaction Status Date / Time No Known Drug Allergies Allergy Verified 08/25/21 20:17 Review of Systems Review of Systems ROS: Yes All systems reviewed with the patient and are negative except as otherwise documented Exam Vital Signs (past 8 hours): - 08/25/21 20:14 08/25/21 20:36 08/25/21 21:00 Temperature 98.5 F Pulse Rate 123 H 124 H 111 H Respiratory Rate 22 Blood Pressure 178/81 H Pulse Oximetry 100 95 99 08/25/21 21:15 08/25/21 21:30 08/25/21 22:00 Temperature Pulse Rate 108 H 106 H 107 H Respiratory Rate 20 Blood Pressure 156/73 H Pulse Oximetry 98 98 99 08/25/21 22:30 08/25/21 22:44 08/25/21 23:10 Temperature 97.7 F Pulse Rate 104 H 115 H 121 H Respiratory Rate 21 18 20 Blood Pressure 157/69 H 140/84 Pulse Oximetry 97 98 98 Oxygen Delivery Method Room Air Oxygen Flow Rate 0 Narrative Exam Narrative: Gen: Alert, oriented, well-developed 71 y.o. female, in mild pain. HEENT: normocephalic, atraumatic, conjunctiva clear, sclera non-icteric, oral mucosa pink and moist Neck: supple, full ROM, no JVD, trachea is midline Resp: Lungs CTA, non-labored breathing CV: Tachy but regular, no murmur or rubs Abd: soft, non-tender, normoactive BTs Skin: no lesions or rashes, dry and intact Neuro: Alert and oriented X 4 w/no focal deficits. Speech clear and coherent. Extremities: unable to move right extremity limited by pain Psyche: normal mood and affect. Objective Labs Result Diagrams: 08/25/21 20:35 08/25/21 20:35 Labs: Laboratory Results - last 24 hr 08/25/21 08/25/21 08/25/21 20:35 20:35 20:35 WBC 10.3 RBC 4.88 Hgb 14.8 Hct 42.3 MCV 86.7 MCH 30.2 MCHC 34.9 RDW 12.3 Plt Count 336 Neut % (Auto) 50.2 Lymph % (Auto) 41.8 H Perry % (Auto) 6.6 Eos % (Auto) 0.7 L Baso % (Auto) 0.7 Neut # (Auto) 5200 Lymph # (Auto) 4300 Perry # (Auto) 700 Eos # (Auto) 100 Baso # (Auto) 100 Platelet Estimate Adequate on smear RBC Morphology Not Reportable Sodium 134 L Potassium 3.9 Chloride 98 Carbon Dioxide 20 L BUN 27 H Creatinine 0.65 Estimated GFR > 60.0 BUN/Creatinine Ratio 41.5 H Glucose 442 H Hemoglobin A1c 13.7 H Calcium 9.9 Total Bilirubin 0.7 AST 33 ALT 38 H Alkaline Phosphatase 140 H Total Protein 7.3 Albumin 4.4 Globulin 2.9 Albumin/Globulin Ratio 1.5 SARS-CoV-2 (PCR) 08/25/21 22:44 WBC RBC Hgb Hct MCV MCH MCHC RDW Plt Count Neut % (Auto) Lymph % (Auto) Perry % (Auto) Eos % (Auto) Baso % (Auto) Neut # (Auto) Lymph # (Auto) Perry # (Auto) Eos # (Auto) Baso # (Auto) Platelet Estimate RBC Morphology Sodium Potassium Chloride Carbon Dioxide BUN Creatinine Estimated GFR BUN/Creatinine Ratio Glucose Hemoglobin A1c Calcium Total Bilirubin AST ALT Alkaline Phosphatase Total Protein Albumin Globulin Albumin/Globulin Ratio SARS-CoV-2 (PCR) Negative Assessment & Plan Assessment & Plan narrative: Maria T Vaughn is admitted for surgical management of a right distal femur fracture and medical management of her new diagnosis of diabetes type 2. 1. Right distal femur fracture, acute, present on admission * NPO now * Dr. Lindsay to consult, appreciated * IV morphine and dilaudid for pain * Tylenol 650 mg q 6 hours scheduled * Ramos is placed as patient is in too much pain to be moved around frequently. 2. New onset DM type 2, uncontrolled and present on admission * She is initiated on glargine 10 units at bedtime and medium dose correctional scale * She will need to be discharged on an oral agent alternative to metformin * Consider SL G-2 inhibitor * Diabetic education 3. Tachycardia, unknown if chronic vs acute due to pain * Echo should be ordered if she develops atrial fibrillation pre or post-op * Telemetry * Consider echo if she develops atrial fibrillation * She is initiated on metoprolol ER 25 mg po bid VTE Prophylaxis: Wells risk score 3 X Bilateral SCDs Consider rx of Xarelto 10 mg daily outpatient DVT prophylaxis on discharge Patient is admitted to the inpatient service due to the severity of disease, risks of further disease progression and this stay is expected to exceed 2 midnights. FEN: IV fluids: LR at 100 ml/hour X 2 liters, diet: NPO, labs: CBC, C/BMP, liver enzymes, Mag, PT/INR Consultants Dr. Lindsay, Orthopedic Surgery, care and involvement in the patient?s care is appreciated. Dispo: hopefully d/c to home w/PT Code status: Full code as discussed with the patient who identifies her as her surrogate and POA. [X] I have utilized all available immediate resources to obtain, update, or review of the patient's current medications COVID-19 COVID-19 status: Negative Result date/Date tested (Pos, Neg/Pending): 08/25/21 Scores Wells' Criteria for PE Clinical signs and symptoms of DVT: No PE is #1 Dx or equally likely: No Heart rate > 100: Yes Immobilization at least 3 days or surg in previous 4 weeks: Yes History of PE or DVT: No Hemoptysis: No Malignancy w/Treatment within 6 months or palliative: No Wells' PE Score total: 3.0 Quality VTE Deep Vein Thrombosis/Pulmonary Embolism Present on Admission: No MIPS - Admit I confirm the patient?s Advance Care Plan is present, Code status is documented, Surrogate decision maker is in patient?s record [If Yes, STOP here]: Yes MIPS - DC The patient has current or prior documentation of left ventricular ejection fraction (LVEF) less than 40%, or moderate or severely depressed left ventricular systolic function.: No
[2021-08-26] VITALS (19 sets, daily range): BP systolic 119–178; BP diastolic 44–92; PULSE 72–104; RESP 11–20; TEMP 35.7–36.9; O2SAT 94–100; BMI 22.6
--- NOTE | 2021-08-26 | DI.RAD.S_ITS ---
PROCEDURE: XR FEMUR RT MIN 2V INDICATIONS: RT FEMUR SURGERY TECHNIQUE: 7 low resolution intraoperative fluoroscopic spot films were obtained COMPARISON: [facility], , XR FEMUR RT MIN 2V, 08/25/2021, 20:35. FINDINGS: Low resolution fluoroscopic spot films show placement of a lateral distal femoral cortical sideplate and screws transfixing a distal comminuted femoral fracture, in good position IMPRESSION: Fluoroscopic guidance Approved by: Max Villalobos M.D. on 08/26/2021 at 16:49
[2021-08-26] MEDS: MORPHINE 4 MG/ML INJ IV ×2 (00:36→12:35)
[2021-08-26] MEDS: LACTATED RINGERS 1,000 ML 100 ML IV (00:36)
[2021-08-26] MEDS: ONDANSETRON 4 MG/2 ML INJ IV ×3 (00:36→17:05)
[2021-08-26] MEDS: METOPROLOL IR 25 MG TABLET PO ×3 (00:38→22:31)
[2021-08-26] MEDS: HYDROMORPHONE 0.5 MG INJ IV (03:34)
[2021-08-26] MEDS: INSULIN LISPRO 100 UNIT/ML 3ML VIAL SUBCUT (04:27)
[2021-08-26 06:27] LABS: Add Manual Diff / Slide Review NO; Basophils Absolute Auto 0 /uL (0-100); Basophils Percent Auto 0.4 % (0-2); Eosinophils Absolute Auto 0 /uL (0-450); Eosinophils Percent Auto 0.3 % (2-4); Hemoglobin 13.5 g/dL (12.0-16.0); Lymphocytes Absolute Auto 1900 /uL (1100-4500); Lymphocytes Percent Auto 19.1 % (25-40); Mean Corpuscular HGB Conc 34.7 % (30-36); Mean Corpuscular Hemoglobin 29.9 PG (26-34); Mean Corpuscular Volume 86.2 fL (80-100); Monocytes Absolute Auto 700 /uL (0-900); Monocytes Percent Auto 7.2 % (3-14); Neutrophils Absolute Auto 7100 /uL (1500-7000); Platelet Count 292 X10^3/uL (150-400); Red Blood Cell Count 4.52 X10^6/uL (4.0-5.2); Red Cell Distribution Width 12.5 % (11.6-14.8); White Blood Cell Count 9.8 X10^3/uL (4.5-11.0)
[2021-08-26 06:33] LABS: INR 1.1 (0.9-1.3); Prothrombin Time 11.9 SECONDS (10.1-12.7)
[2021-08-26 06:42] LABS: Alanine Aminotransferase 34 IU/L (<35); Albumin 3.9 g/dL (3.5-5.0); Albumin Globulin Ratio 1.4 (1.0-2.8); Alkaline Phosphatase 99 U/L (38-126); Aspartate Aminotransferase 24 IU/L (14-36); BUN Creatinine Ratio 31.9 (6-22); Bilirubin Total 0.5 mg/dL (0.2-1.3); Bilirubin Unconjugated 0.6 mg/dL (0.0-1.1); Blood Urea Nitrogen 22 mg/dL (7-17); Calcium 9.5 mg/dL (8.4-10.2); Carbon Dioxide 32 mmol/L (22-32); Chloride 101 mmol/L (98-107); Estimated Glomerular Filt Rate > 60.0 mL/min (>60); Globulin 2.7 g/dL (1.7-4.1); Glucose 282 mg/dL (80-110); HEMOLYSIS < 15 (0-50); Potassium 4.5 mmol/L (3.4-5.1); Sodium 140 mmol/L (137-145); Total Protein 6.6 g/dL (6.3-8.2)
[2021-08-26] MEDS: INSULIN REGULAR 100 UNIT/ML 3 ML VIAL IV (08:19)
--- NOTE | 2021-08-26 09:50 | PC.NURSE ---
Addendum entered by Barbara Velasquez R.N. 08/26/21 18:40: Patient on 2l of o2 until she wakes up more and sats go up. She is comfortable and denies pain. Addendum entered by Barbara Velasquez R.N. 08/26/21 18:14: Patient just back from surgery, she is resting well and denies pain or discomfort. Lying supine. She has a óscar dressing in place with motor and light flashing green. Patient also has an immobilizer in place for support. IV vanco infusing. Addendum entered by Barbara Velasquez R.N. 08/26/21 13:28: Patient medicated with 4mg of morphine before she went to surgery at 1300. Daughter is her support person. Original Note: Assess- Patient is alert and oriented x3, her r.leg is fx a bit above the knee. This is the side that patient had her l.anterior hip surgery a few years back. into see patient and explained her surgery too her, and consent is signed. Patients blood sugar in the 200s and 5u of regular insulin given. When at rest patient is comfortable. lieutenant shift supervisor unsuccessful at putting a morales in as patient could not open her r.leg up. She will be going to surgery at 11, her r.leg is rotated in.
--- NOTE | 2021-08-26 10:09 | PM.HP.1 ---
History of Present Illness History of Present Illness Date Patient Seen: 08/26/21 Time Patient Seen: 09:40 Chief complaint: Fall Narrative: A 71-year-old female who fell down the stairs and noted the acute onset of right leg and knee pain. She has a somewhat complicated past medical history she has a history of a right total hip arthroplasty which was done from an anterior approach in 2012. She notes that she has been having severe neuropathic pain into her right leg since sometime in about June. She describes a 40 lb unintentional weight loss and a history of multiple infections including a sinus infections and a urinary tract infection. She has been seen at to ERs an urgent care and by primary care practitioner within the last couple of months. She is transitioning her care to a new primary care doctor. She had a major hiatus in her health care due to being afraid of COVID and did not come in for several years. Patient History Medical History History of fracture of foot Kidney stones Surgical History History of right hip replacement Hx of section Hx of hysterectomy Hx of tubal ligation Family & Social History Family History Mother Diabetes mellitus Osteoporosis Father Medical history unknown Social History: household members spouse Prior Living Arrangements House Safety & Behavioral: Feels Safe in Current Yes Environment Been Physically Hurt or No Threatened By a Person Suicidal Ideation Description None Suicide Plan Description No Plan Tobacco & Substance use: Smoking Status Never smoker alcohol intake frequency 0-2 drinks per day Substance Use Type does not use Meds Home Medications and Allergies Allergies Allergy/AdvReac Type Severity Reaction Status Date / Time No Known Drug Allergies Allergy Verified 08/25/21 20:17 Review of Systems Review of Systems Narrative: She notes abdominal pain, new neuropathic pain in the right leg, about a 40 lb unintentional weight loss and feeling terrible overall. She denies a history of chest pain or pulmonary problems. She does note some ongoing abdominal pain and a generalized feeling of nausea. She was not lightheaded or dizzy prior to her fall. Exam Vital Signs (past 8 hours): - 08/26/21 04:55 08/26/21 07:00 Temperature 97.6 F 97 F L Pulse Rate 85 89 Respiratory Rate 16 16 Blood Pressure 152/79 H 137/56 L Pulse Oximetry 96 99 Oxygen Delivery Method Room Air Oxygen Flow Rate 0 Narrative Exam Narrative: HEENT is benign, lungs are clear, cor regular rate and rhythm, abdomen is soft but slightly distended, bowel sounds are present and normal active, she is alert and oriented her neck is supple, she has a healed anterior incision on her right hip she has dysesthetic sensation over the entire anterior aspect of her right thigh, she can move her toes with a trace of motion but has generalized numbness in the right lower extremity, there is obvious swelling of the right knee, she has dysesthetic sensation on her calf but it soft, the left lower extremity she has slight numbness in the left lower extremity she can fire toe flexors and extensors quads and hamstrings she has adequate capillary refill in bilateral lower extremities and no obvious sores Objective Labs Result Diagrams: 08/26/21 06:01 08/26/21 06:01 Labs: Laboratory Results - last 24 hr 08/25/21 08/25/21 08/25/21 20:35 20:35 20:35 WBC 10.3 RBC 4.88 Hgb 14.8 Hct 42.3 MCV 86.7 MCH 30.2 MCHC 34.9 RDW 12.3 Plt Count 336 Neut % (Auto) 50.2 Lymph % (Auto) 41.8 H [place] % (Auto) 6.6 Eos % (Auto) 0.7 L Baso % (Auto) 0.7 Neut # (Auto) 5200 Lymph # (Auto) 4300 [place] # (Auto) 700 Eos # (Auto) 100 Baso # (Auto) 100 Platelet Estimate Adequate on smear RBC Morphology Not Reportable PT INR Sodium 134 L Potassium 3.9 Chloride 98 Carbon Dioxide 20 L BUN 27 H Creatinine 0.65 Estimated GFR > 60.0 BUN/Creatinine Ratio 41.5 H Glucose 442 H Hemoglobin A1c 13.7 H Calcium 9.9 Magnesium Total Bilirubin 0.7 Conjugated Bilirubin Unconjugated Bilirubin AST 33 ALT 38 H Alkaline Phosphatase 140 H Total Protein 7.3 Albumin 4.4 Globulin 2.9 Albumin/Globulin Ratio 1.5 TSH Free T4 SARS-CoV-2 (PCR) 08/25/21 08/25/21 08/26/21 20:35 22:44 06:01 WBC 9.8 RBC 4.52 Hgb 13.5 Hct 39.0 MCV 86.2 MCH 29.9 MCHC 34.7 RDW 12.5 Plt Count 292 Neut % (Auto) 73.0 D Lymph % (Auto) 19.1 L D [place] % (Auto) 7.2 Eos % (Auto) 0.3 L Baso % (Auto) 0.4 Neut # (Auto) 7100 H Lymph # (Auto) 1900 [place] # (Auto) 700 Eos # (Auto) 0 Baso # (Auto) 0 Platelet Estimate RBC Morphology PT INR Sodium Potassium Chloride Carbon Dioxide BUN Creatinine Estimated GFR BUN/Creatinine Ratio Glucose Hemoglobin A1c Calcium Magnesium Total Bilirubin Conjugated Bilirubin Unconjugated Bilirubin AST ALT Alkaline Phosphatase Total Protein Albumin Globulin Albumin/Globulin Ratio TSH 18.00 H Free T4 1.70 SARS-CoV-2 (PCR) Negative 08/26/21 08/26/21 06:01 06:01 WBC RBC Hgb Hct MCV MCH MCHC RDW Plt Count Neut % (Auto) Lymph % (Auto) [place] % (Auto) Eos % (Auto) Baso % (Auto) Neut # (Auto) Lymph # (Auto) [place] # (Auto) Eos # (Auto) Baso # (Auto) Platelet Estimate RBC Morphology PT 11.9 INR 1.1 Sodium 140 Potassium 4.5 Chloride 101 Carbon Dioxide 32 BUN 22 H Creatinine 0.69 Estimated GFR > 60.0 BUN/Creatinine Ratio 31.9 H Glucose 282 H D Hemoglobin A1c Calcium 9.5 Magnesium 2.0 Total Bilirubin 0.5 Conjugated Bilirubin 0.0 Unconjugated Bilirubin 0.6 AST 24 ALT 34 Alkaline Phosphatase 99 Total Protein 6.6 Albumin 3.9 Globulin 2.7 Albumin/Globulin Ratio 1.4 TSH Free T4 SARS-CoV-2 (PCR) x-rays show a comminuted right distal supracondylar femur fracture with slight displacement and a right total hip arthroplasty with acceptable overall alignment, no evidence of loosening Assessment & Plan Assessment and plan (1) Femoral distal fracture: Status: Acute (2) Tachycardia: Status: Acute (3) Diabetes type 2, uncontrolled: Status: Acute (4) Unintentional weight loss: Status: Acute (5) Acute leg pain: Status: Acute (6) Femur fracture, right: Status: Acute Plan I have recommended open reduction internal fixation of her right femur with a locking plate. She has a comminuted fracture. She does have apparent osteoporosis on her plain radiographs. She also has a right total hip arthroplasty proximally. Medically she is concerning as she has out of control and untreated diabetes. She is having acute neuropathic pain in the right leg likely related to her out of control diabetes. We discussed the serious nature of the problem, options risks benefits and complications. Her fracture is unstable I do not think she is a good candidate for close management. She previously was able to ambulate well prior to her diabetes getting out of control and having severe neuropathic pain. I anticipate that I will likely get can get her fixed so that she can be at least partial weight-bearing on the right lower extremity. She may need a short-term stay in rehab to stabilize her medical problems including her diabetes as well as for physical therapy to make sure that she safe after her fracture fixation. She is obviously at increased risk for infection but she has an acute fracture and I think we should proceed with open reduction internal fixation. She currently does not have any decubiti or skin wounds. Time Spent With Patient Critical Care time: I spent a total of [] minutes of critical care time on this patient's care today; this time is exclusive of procedural time. Quality VTE Deep Vein Thrombosis/Pulmonary Embolism Present on Admission: No
--- NOTE | 2021-08-26 10:20 | P.OP_ITS ---
Operative Date/Time/Diagnoses Date of procedure: 08/26/21 Time of procedure: 11:30 Pre-op diagnosis: Right supracondylar femur fracture, history of right total hip arthroplasty, uncontrolled diabetes Post-op diagnosis: same Procedure & Clinicians Procedure: Open reduction internal fixation right femur fracture Same procedure as scheduled: Yes Indications: This is a 71-year-old female who fell down a flight of stairs and has a right distal femur fracture. It is a supracondylar femur fracture and at somewhat comminuted. She also has a right total hip arthroplasty in place. She has out of control diabetes. She is brought the operating room for open reduction internal fixation. Procedure risk and especially including infection were discussed in detail. Surgeon: Denia Lindsay Marketing Administrative Assistant: Tasneem Faust Anesthesia Type: General and Spinal Operative Notes Findings: Comminuted right femur fracture, acceptable alignment, soft bone Closure Type: primary Specimen(s): none sent Prosthetic devices, grafts, tissues, transplants, or devices: Lindsay and nephew right distal femur locking plate Estimated Blood Loss (mL): 150 Blood products transfused: none Procedure in detail: Patient is brought the operating room. She was given IV antibiotics. She was given transexmic acid. Time-out was performed. She underwent induction of a general anesthesia. Her right lower extremities prepped draped standard sterile fashion. She was positioned supine. Lateral skin incision was made dissection was carried out through skin and subcutaneous tissues. Patient was placed on a bump. Distal femur was exposed. A plate was selected. Selected a plate that would go just proximal to the distal tip of the femoral stem. The plate was aligned to the femur distally. The fracture was meticulously reduced. It was carefully positioned and checked with fluoroscopy. It was then provisionally stabilized to the femur both proximally and distally. The plate was then stabilized to the femur with a combination of locking and nonlocking screws. I meticulously checked the position of the plate and the fixation. The fracture was carefully aligned. There was a split went into the intercondylar region. This was carefully reduced and fixed with several lag screws. Adequate compression was achieved across the fracture site. Adequate fixation was achieved patient had soft bone. Fluoroscopy was used extensively for defining the alignment and plate location, fracture alignment and fixation. Proximal screws were filled percutaneously with a guide. Some locking screws were used. the wound was meticulously irrigated with normal saline. Final images were obtained. Marcaine and Exparel were carefully injected. There was minimal bleeding. The wound was closed with Vicryl and barbed stitches and skin gloria. The wound was dressed with óscar. Complications: none Post-operative Condition: stable Disposition: Acute Care Plan for aftercare: Partial weight-bearing on the right lower extremity, touchdown weight-bearing right lower extremity. Strict fall precautions. Aggressive diabetic control. [facility]able [facility]. Right knee range of motion brace with range of motion 0-90 degrees.
--- NOTE | 2021-08-26 10:31 | P.PN_ITS ---
Subjective Subjective Date Patient Seen: 08/26/21 Interval history: 71-year-old female admitted with distal right femur fracture. Patient is going to OR today. Blood sugars have been over 300 this morning and she received 5 units are insulin IV and also on sliding scale. She is due for Lantus this evening. Exam Vital Signs (past 8 hours): - 08/26/21 04:55 08/26/21 07:00 Temperature 97.6 F 97 F L Pulse Rate 85 89 Respiratory Rate 16 16 Blood Pressure 152/79 H 137/56 L Pulse Oximetry 96 99 Oxygen Delivery Method Room Air Oxygen Flow Rate 0 Narrative Exam Narrative: General: Alert and comfortable when not moving in bed Lungs: Clear Heart: Normal S1 and S2, regular rate and rhythm, no murmur Extremities: No distal edema Neurological: Appropriately oriented, normal affect, normal speech Objective Labs Result Diagrams: 08/26/21 06:01 08/26/21 06:01 Labs: Laboratory Results - last 24 hr 08/25/21 08/25/21 08/25/21 20:35 20:35 20:35 WBC 10.3 RBC 4.88 Hgb 14.8 Hct 42.3 MCV 86.7 MCH 30.2 MCHC 34.9 RDW 12.3 Plt Count 336 Neut % (Auto) 50.2 Lymph % (Auto) 41.8 H [place] % (Auto) 6.6 Eos % (Auto) 0.7 L Baso % (Auto) 0.7 Neut # (Auto) 5200 Lymph # (Auto) 4300 [place] # (Auto) 700 Eos # (Auto) 100 Baso # (Auto) 100 Platelet Estimate Adequate on smear RBC Morphology Not Reportable PT INR Sodium 134 L Potassium 3.9 Chloride 98 Carbon Dioxide 20 L BUN 27 H Creatinine 0.65 Estimated GFR > 60.0 BUN/Creatinine Ratio 41.5 H Glucose 442 H Hemoglobin A1c 13.7 H Calcium 9.9 Magnesium Total Bilirubin 0.7 Conjugated Bilirubin Unconjugated Bilirubin AST 33 ALT 38 H Alkaline Phosphatase 140 H Total Protein 7.3 Albumin 4.4 Globulin 2.9 Albumin/Globulin Ratio 1.5 TSH Free T4 SARS-CoV-2 (PCR) 08/25/21 08/25/21 08/26/21 20:35 22:44 06:01 WBC 9.8 RBC 4.52 Hgb 13.5 Hct 39.0 MCV 86.2 MCH 29.9 MCHC 34.7 RDW 12.5 Plt Count 292 Neut % (Auto) 73.0 D Lymph % (Auto) 19.1 L D [place] % (Auto) 7.2 Eos % (Auto) 0.3 L Baso % (Auto) 0.4 Neut # (Auto) 7100 H Lymph # (Auto) 1900 [place] # (Auto) 700 Eos # (Auto) 0 Baso # (Auto) 0 Platelet Estimate RBC Morphology PT INR Sodium Potassium Chloride Carbon Dioxide BUN Creatinine Estimated GFR BUN/Creatinine Ratio Glucose Hemoglobin A1c Calcium Magnesium Total Bilirubin Conjugated Bilirubin Unconjugated Bilirubin AST ALT Alkaline Phosphatase Total Protein Albumin Globulin Albumin/Globulin Ratio TSH 18.00 H Free T4 1.70 SARS-CoV-2 (PCR) Negative 08/26/21 08/26/21 06:01 06:01 WBC RBC Hgb Hct MCV MCH MCHC RDW Plt Count Neut % (Auto) Lymph % (Auto) [place] % (Auto) Eos % (Auto) Baso % (Auto) Neut # (Auto) Lymph # (Auto) [place] # (Auto) Eos # (Auto) Baso # (Auto) Platelet Estimate RBC Morphology PT 11.9 INR 1.1 Sodium 140 Potassium 4.5 Chloride 101 Carbon Dioxide 32 BUN 22 H Creatinine 0.69 Estimated GFR > 60.0 BUN/Creatinine Ratio 31.9 H Glucose 282 H D Hemoglobin A1c Calcium 9.5 Magnesium 2.0 Total Bilirubin 0.5 Conjugated Bilirubin 0.0 Unconjugated Bilirubin 0.6 AST 24 ALT 34 Alkaline Phosphatase 99 Total Protein 6.6 Albumin 3.9 Globulin 2.7 Albumin/Globulin Ratio 1.4 TSH Free T4 SARS-CoV-2 (PCR) [facility] Medical History History of fracture of foot Kidney stones Surgical History History of right hip replacement Hx of section Hx of hysterectomy Hx of tubal ligation Family History Mother Diabetes mellitus Osteoporosis Father Medical history unknown Social History household members: spouse Smoking Status: Never smoker Assessment & Plan Assessment & Plan narrative: 1. Right distal femur fracture -scheduled for fixation today -continue as needed pain meds -postop PT/OT 2. Type 2 diabetes, uncontrolled -A1c greater than 13, diabetes was apparently recently diagnosed -reports 40 lb weight loss which is likely due to the diabetes -Lantus 10 units HS, medium dose sliding scale -reported nausea with metformin and stopped it -consider start SL G-2 inhibitor, Jardiance, on discharge 3. Sinus tachycardia, chronic -EKG 08/20/2021 showed sinus tach, possible old IMI -consider echo as outpatient -telemetry -metoprolol ER 25 mg b.i.d. 4. Hypothyroidism, untreated -TSH 18 with normal free T4 -start levothyroxine 25 mcg q.a.m. -repeat TFTs in 4-6 weeks Time Spent With Patient Critical Care time: I spent a total of [] minutes of critical care time on this patient's care today; this time is exclusive of procedural time. Quality VTE Deep Vein Thrombosis/Pulmonary Embolism Present on Admission: No
--- NOTE | 2021-08-26 10:59 | CM.DANOTE ---
Patient is a 71 yo female who was admitted on 08/25/21 for GLF. [place] [employer] [place] and her PCP is being switched and has establish care appointment already scheduled for 08/28/21. EMR was reviewed. Per MD, pt with recent new dx diabetes and had weight loss recently not on purpose and had GLF after stumbling on last two steps of the stairs and admitted with R Distal Femur Fx. Per Ortho MD, pt to be taken to surg at 1130 today for hardware placement and will be partial weight baring as tolerated. PT to eval pt after surgery today towards determining d/c planning needs. SW met bedside with pt and adult Dtr and explained role and pt confirms she lives in [place] with her spouse and both are independent at baseline with ADL's and pt states she was just about to update all of her DPOA pwk on her PCP establish care appointment in two days. Pt states spouse can physically assist at d/c if needed and Dtr lives with spouse and kids in [place] but can stay with pt for a week or so as she works from home and can do so remotely from pt's house if needed. SW discussed possible option of outpt PT, HH, and SNF rehab pending progress after surgery. Pt states she had HH once after hip revision. SW discussed if SNF requested, then [facility] would have to auth SNF and would have to be a [employer] contracted facility, likely [facility] or [facility] as [facility] not contracted with [facility]. Pt does not have a walker or DME and discussed if w/c recommended possible option of [employer] from [employer] but only open T and Fri or could rent. Both appreciative of the information. Plan: SW to follow closely for surgical intervention today around 1130 and then PT eval to determine outpt vs HH vs SNF at d/c and pt has spouse and adult Dtr available for assist at discharge. MATT Joe Discharge Planning/Care Management CM Discharge Assessment Start: 08/26/21 10:58 Freq: Status: Active Protocol: Document 08/26/21 10:58 BF (Rec: 08/26/21 10:59 BF [id number]) Discharge Planning Assessment Assigned Paste Worker MATT Trevino DPOA/Assigned Designee Name spouse Tejinder and Dtr but pt will bring in copy Advance Directives? No Advance Directives on File No History Provided By Patient,Family Member,Medical Record Has Patient been admitted in last 30 No days? Prior Living Arrangements House Household Members spouse Type of transporation used prior to Drives own vehicle admit Independent with ADL's Yes Is patient alert and oriented? Yes Caregiver for Another No Patient/Family Preference [facility] Facility,Home with Home Health Comment HH vs SNF pending PT eval after surgery with Ortho today Barriers to Discharge No Discharge Plan Home with Home Health Transportation Arrangement Dtr bedside and available for transport at d/c Additional Comment Pending PT eval after surgery today Whiteboard Updated in Patient Room with Yes name and ext. # of Paste Worker Review Status In Process Please Provide Date Initial DC 08/26/21 Assessment Was Performed Next Review Type Continued Stay Review
[2021-08-26] MEDS: LACTATED RINGERS 1,000 ML 42 ML IV ×2 (13:20→15:57)
--- NOTE | 2021-08-26 13:53 | DI.RAD.S_ITS ---
PROCEDURE: XR KNEE RT 1TO2V INDICATIONS: femur fracture TECHNIQUE: 3 views of the knee were acquired. COMPARISON: [facility], CR, XR KNEE RT 1TO2V, 08/25/2021, 20:35. FINDINGS: Bones: Comminuted distal femoral fracture is now internally fixed with cortical sideplate and screws. Overlying skin gloria noted. Hardware in good position. Moderate joint space narrowing noted at the knee Soft tissues: No joint effusion. No suspicious soft tissue calcifications. IMPRESSION: Internal fixation hardware supports comminuted distal femoral fracture in good position. Approved by: Max Villalobos M.D. on 08/26/2021 at 16:48
[2021-08-26] MEDS: CLINDAMYCIN 900 MG/50 ML PIGGYBACK 50 MG IV ×2 (14:06→22:38)
[2021-08-26] MEDS: TRANEXAMIC ACID 1,000 MG VIAL 2000 MG INJ ×2 (14:12→16:41)
[2021-08-26] MEDS: ACETAMINOPHEN IV 1,000 MG/100 ML VIAL 400 MG IV (14:38)
--- NOTE | 2021-08-26 14:48 | SUR.OPER ---
Supine on padded OR bed, head on pillow, arms secured on padded arm boards at <90 degrees abduction, legs uncrossed, safety belt at thigh, tape over blanket over lower legs.
[2021-08-26] MEDS: BUPIVACAINE 0.5% (PF) 30 ML, EPINEPHrine 0.15 MG INJ (14:57)
[2021-08-26] MEDS: BUPIVACAINE LIPOSOME 266 MG/20 ML VIAL INJ (14:58)
[2021-08-26] MEDS: VANCOMYCIN 1,000 MG/200 ML PIGGYBACK 200 MG IV (17:04)
[2021-08-26] MEDS: HYDROMORPHONE 2 MG INJ IV (17:05)
[2021-08-26] MEDS: hydrOXYzine 50 MG/ML INJ 25 MG IM (17:05)
[2021-08-26] MEDS: LACTATED RINGERS 1,000 ML 125 ML IV (18:43)
[2021-08-26] MEDS: ACETAMINOPHEN 325 MG TABLET 975 MG PO (22:30)
[2021-08-26] MEDS: ASPIRIN EC 81 MG TABLET PO (22:30)
[2021-08-26] MEDS: DOCUSATE 100 MG CAPSULE PO (22:31)
[2021-08-26] MEDS: INSULIN GLARGINE 100 UNIT/ML 3ML PEN 10 UNIT SUBCUT (22:34)
[2021-08-27] VITALS (11 sets, daily range): BP systolic 93–149; BP diastolic 38–86; PULSE 72–95; RESP 16–17; TEMP 36.2–36.9; O2SAT 93–100
[2021-08-27] MEDS: LACTATED RINGERS 1,000 ML 125 ML IV (02:43)
[2021-08-27] MEDS: CLINDAMYCIN 900 MG/50 ML PIGGYBACK 50 MG IV (05:12)
[2021-08-27 05:31] LABS: Add Manual Diff / Slide Review NO; Basophils Absolute Auto 0 /uL (0-100); Basophils Percent Auto 0.3 % (0-2); Eosinophils Absolute Auto 100 /uL (0-450); Eosinophils Percent Auto 0.7 % (2-4); Hematocrit 31.4 % (36-46); Hemoglobin 10.9 g/dL (12.0-16.0); Lymphocytes Absolute Auto 1700 /uL (1100-4500); Lymphocytes Percent Auto 21.2 % (25-40); Mean Corpuscular HGB Conc 34.6 % (30-36); Mean Corpuscular Hemoglobin 30.3 PG (26-34); Mean Corpuscular Volume 87.4 fL (80-100); Monocytes Absolute Auto 700 /uL (0-900); Monocytes Percent Auto 8.3 % (3-14); Neutrophils Absolute Auto 5700 /uL (1500-7000); Neutrophils Percent Auto 69.5 % (50-75); Platelet Count 214 X10^3/uL (150-400); Red Blood Cell Count 3.59 X10^6/uL (4.0-5.2); Red Cell Distribution Width 12.7 % (11.6-14.8); White Blood Cell Count 8.2 X10^3/uL (4.5-11.0)
[2021-08-27 05:41] LABS: Alanine Aminotransferase 26 IU/L (<35); Albumin 2.9 g/dL (3.5-5.0); Albumin Globulin Ratio 1.2 (1.0-2.8); Alkaline Phosphatase 76 U/L (38-126); Aspartate Aminotransferase 31 IU/L (14-36); BUN Creatinine Ratio 25.8 (6-22); Bilirubin Total 0.3 mg/dL (0.2-1.3); Bilirubin Unconjugated 0.4 mg/dL (0.0-1.1); Blood Urea Nitrogen 17 mg/dL (7-17); Calcium 8.2 mg/dL (8.4-10.2); Carbon Dioxide 31 mmol/L (22-32); Chloride 102 mmol/L (98-107); Estimated Glomerular Filt Rate > 60.0 mL/min (>60); Globulin 2.4 g/dL (1.7-4.1); Glucose 215 mg/dL (80-110); HEMOLYSIS < 15 (0-50); Magnesium 1.6 mg/dL (1.6-2.3); Potassium 3.5 mmol/L (3.4-5.1); Sodium 135 mmol/L (137-145); Total Protein 5.3 g/dL (6.3-8.2)
[2021-08-27] MEDS: LEVOTHYROXINE 25 MCG TABLET PO (06:47)
[2021-08-27] MEDS: OXYCODONE IR 5 MG TABLET PO ×4 (07:32→16:49)
[2021-08-27] MEDS: INSULIN LISPRO 100 UNIT/ML 3ML VIAL SUBCUT ×4 (08:42→21:44)
[2021-08-27] MEDS: ACETAMINOPHEN 325 MG TABLET 975 MG PO ×3 (08:45→21:32)
[2021-08-27] MEDS: DOCUSATE 100 MG CAPSULE PO ×2 (08:45→21:34)
[2021-08-27] MEDS: polyethylene glycoL 3350 17 GM POWD.PACK PO (08:45)
[2021-08-27] MEDS: ASPIRIN EC 81 MG TABLET PO ×2 (08:45→21:34)
--- NOTE | 2021-08-27 11:10 | PC.NURSE ---
Day shift: Pt prescribed metformin and glipizide by her PCP and she is no longer taking. She said I stopped them because they gave me diarrhea. She takes no home meds at this time. Updated med list just now.
--- NOTE | 2021-08-27 11:24 | P.PN_ITS ---
Subjective Subjective Date Patient Seen: 08/27/21 Time Patient Seen: 10:30 Interval history: She notes that she is doing okay. She still had pain in her leg overnight. She is not been mobilized out of bed to a chair yet by therapy. She does have some ongoing pain into her right ankle. She says she has a history of 2 prior right ankle fractures. Exam Vital Signs (past 8 hours): - 08/27/21 08:00 08/27/21 08:09 08/27/21 09:26 Temperature 97.8 F Pulse Rate 80 Respiratory Rate 16 Blood Pressure 149/86 H Pulse Oximetry 100 96 93 Oxygen Delivery Method Room Air Oxygen Flow Rate 0 Narrative Exam Narrative: She is alert she is oriented she is resting comfortably in bed, she is unable to do an active straight leg raise on the right, she does have pain with attempted gentle range of motion of the right knee, she has some numbness in the right lower extremity and slight dysesthetic sensation on the dorsum of her foot, she has pain with range of motion in the right ankle there is no specific crepitation but it is also painful into the knee. She has adequate capillary refill and pulses. Foot is warm. Objective Labs Result Diagrams: 08/27/21 05:10 08/27/21 05:10 Labs: Laboratory Results - last 24 hr 08/27/21 08/27/21 05:10 05:10 WBC 8.2 RBC 3.59 L Hgb 10.9 L Hct 31.4 L MCV 87.4 MCH 30.3 MCHC 34.6 RDW 12.7 Plt Count 214 Neut % (Auto) 69.5 Lymph % (Auto) 21.2 L [place] % (Auto) 8.3 Eos % (Auto) 0.7 L Baso % (Auto) 0.3 Neut # (Auto) 5700 Lymph # (Auto) 1700 [place] # (Auto) 700 Eos # (Auto) 100 Baso # (Auto) 0 Sodium 135 L Potassium 3.5 Chloride 102 Carbon Dioxide 31 BUN 17 Creatinine 0.66 Estimated GFR > 60.0 BUN/Creatinine Ratio 25.8 H Glucose 215 H Calcium 8.2 L Magnesium 1.6 Total Bilirubin 0.3 Conjugated Bilirubin 0.0 Unconjugated Bilirubin 0.4 AST 31 ALT 26 Alkaline Phosphatase 76 Total Protein 5.3 L Albumin 2.9 L Globulin 2.4 Albumin/Globulin Ratio 1.2 PFSH Medical History History of fracture of foot Kidney stones Surgical History History of right hip replacement Hx of section Hx of hysterectomy Hx of tubal ligation Family History Mother Diabetes mellitus Osteoporosis Father Medical history unknown Social History household members: spouse Smoking Status: Never smoker Assessment & Plan Post-op Postoperative Procedures: Procedures Operation Date: 08/26/21 11:30 Actual Procedure Side Surgeon p ORIF Femur Fracture Right Denia Lindsay MD Postoperative day: 1 Postoperative status: marginal pain control Postoperative status narrative: She is stable postoperatively. She is having some issues with pain control. Postoperative plan: routine post-op care Postoperative plan narrative: Mobilize out of bed to the chair. She can be partial weight-bearing on the right lower extremity 50 lb at most. Her knee range of motion brace can be adjusted to keep the hinge at the knee. She can have her brace off when she is in bed if she is more comfortable without the brace. She has multiple medical problems including very poorly controlled recently diagnosed diabetes. I anticipate she will require discharge to a custodial facility to work on rehab for her right leg as well as optimally managing her diabetes postoperatively in order to allow for wound and bone healing. This was specifically discussed with her. Time Spent With Patient Time with patient: 15-24 minutes Quality VTE Deep Vein Thrombosis/Pulmonary Embolism Present on Admission: No
--- NOTE | 2021-08-27 13:03 | PT.IIE ---
Current Diagnoses Type 2 diabetes mellitus with hyperglycemia (08/25/21) Pain in leg, unspecified (08/25/21) Tachycardia, unspecified (08/25/21) Abnormal weight loss (08/25/21) Unspecified fracture of lower end of unspecified femur, initial encounter for closed fracture (08/25/21) Unspecified fracture of right femur, initial encounter for closed fracture (08/25/21) Surgery Performed Operation Date: 08/26/21 11:30 Actual Procedures p ORIF Femur Fracture(Right) - Denia Lindsay MD Medical History (Last Reviewed 08/26/21 @ 10:12 by Denia Lindsay MD) History of fracture of foot Kidney stones Physical Therapy Inpatient Evaluation/Re-Eval M1 PT/OT-IP Prior Functional Status Start: 08/27/21 12:47 Freq: Status: Active Protocol: Document 08/27/21 12:48 BC (Rec: 08/27/21 13:01 [id number]) Medical Review Prior Functional Status Medical History Reviewed Yes Mobility and Gait Fully independent. Lives with spouse in 2 story home. Bathroom on first floor. Activities of Daily Living and IADL's Independent Prior Functional Level (Other details) Does not own DME Social History Household Members spouse Living Arrangements House Number of Floors (Floors) Two Floors Number of Stairs To Enter/Railing? 2 steps, no railing Employment Status Retired M2 PT-IP Current Condition Start: 08/27/21 12:47 Freq: Status: Active Protocol: Document 08/27/21 12:48 BC (Rec: 08/27/21 13:01 [id number]) Physical Therapy Current Condition Current Condition Evaluation Date 08/27/21 Treatment Diagnosis R26 - abnormal gait Onset Date 08/26/2021 M3 PT-IP Subjective Start: 08/27/21 12:47 Freq: Status: Active Protocol: Document 08/27/21 12:48 BC (Rec: 08/27/21 13:01 [id number]) Subjective Physical Therapy Visit Type Type Initial Evaluation Visit Start Time 11:15 Visit Stop Time 11:55 Total Visit Minutes 39 Physical Therapy Visit Comments Patient Comments Pt motivated to work with PT. States surgeon was just in and wants knee immobilizer to be moved up. Patient Goals To learn how to walk with PWB. Therapy Pain Assessment Pain When Pain Assessed During Mobility Pain Present Pain Present Pain Reported Location Right Leg Intensity 5 Pain Management Techniques Timing of Activity with Medications M4 PT-IP Mobility and Gait Start: 08/27/21 12:47 Freq: Status: Active Protocol: Document 08/27/21 12:48 BC (Rec: 08/27/21 13:01 [id number]) PT-Bed Mobility Assessment Rolling Type of Rolling Roll to Right Level of Assist Moderate Assistance Supine to Sit Supine to Sit Moderate Assistance Sit to Supine Sit to Supine Moderate Assistance Scooting Scooting to Edge of Bed Maximum Assistance PT-Transfer Assessment Sit to and From Stand Sit to and from Stand Moderate Assistance Equipment Transfer Assistive Device Gait Belt,Front Wheeled Walker Orthotic/Prosthetic Devices or Brace: Yes Transfer Ability Level of Assist Moderate Assistance Comments Mobility Comments Pt took 3 fwd/bkwd steps with FWW and step to gait pattern at which point she requested to return to bed. Education and demo provided on reduced PWB on RLE and proper gait technique. Gait Assessment Comments Gait Comments See transfer notes above. Pt did not ambulate on eval rather took several fwd/bkwd steps. Stair Climbing Assessment Comments Stair Climbing Comments Not appropriate yet. PT-Balance Assessment Sitting Balance and Reactions Static Sitting Balance Ability Poor Dynamic Sitting Balance Ability Poor Standing Balance and Reactions Static Standing Balance Ability Poor Dynamic Standing Balance Ability Poor Device Used FWW Comments Other Balance Tests/Deviations/Treatment Pt listing heavily and : intentionally to Left during sitting EOB M5 PT-IP Objective Assessments Start: 08/27/21 12:47 Freq: Status: Active Protocol: Document 08/27/21 12:48 BC (Rec: 08/27/21 13:01 [id number]) Orientation Orientation/Cognition Level of Alertness Alert Orientation Name,Date,Place,Situation Safety Awareness Understands Safety Issues Gross Range of Motion Upper Extremity ROM Assessment Within Functional Limits Lower Extremity ROM Assessment Right Impaired Impairments Knee immobilizer maintaining 0 -90 deg of R knee flexion only Strength Upper Extremity Strength Assessment Within Functional Limits Lower Extremity Strength Assessment Right Impaired Hip 2/5 Knee 2/5 Ankle 5/5 Sensation Assessment Sensation Gross Sensation WNL Light Touch Intact Proprioception (Position) Intact Muscle Tone Muscle Tone WNL Yes M6 PT-IP Treatment Start: 08/27/21 12:47 Freq: Status: Active Protocol: Document 08/27/21 12:48 BC (Rec: 08/27/21 13:01 [id number]) Physical Therapy Treatment Education Education Provided Precautions,Weight Bearing Status,Safety Other Treatments Other Treatment Performed Educated on PWB RLE during transfers and several steps. Educated on purpose of knee immobilizer. M7 PT-IP Assessment and Plan Start: 08/27/21 12:47 Freq: Status: Active Protocol: Document 08/27/21 12:48 (Rec: 08/27/21 13:01 [id number]) PT Summary Assessment and Plan Potential Rehabilitation Potential Good Status of Condition at Evaluation Evolving Summary Impairments Pain,ROM,Strength,Balance, Coordination,Bed Mobility, Transfers,Gait,Activity Tolerance Progress Towards Goals Progressing Toward Goals Assessment Summary Pt admitted due to fall from stairs resulting in distal R femur fx. Hx of R BOO in 2012. Pt underwent ORIF and is now in knee immobilizer for 0-90 deg of motion. PWB RLE (50 lb at most) per most recent ortho note. Pt lives with spouse in two story home. She can stay on first floor with bathroom/ bedroom but would still have 2 steps to enter home. Her PLOF is fully independent. She owns no DME. Agreeable to PT. Therapist adjusted knee immobilizer as it had slipped distally. At this time, Pt is requiring mod to max assist for transfers and bed mobility. She tolerated 3 steps fwd/bkwd today with training on PWB. Pt will benefit from IPPT to progress ambulation, transfers and stair training. She may require SNF at discharge to further progress ambulation, balance, and transfers due to her significant reduction in independence. Goals Bed Mobility Goal Standby Assistance Transfer Goal Standby Assistance Gait Goal Standby Assistance Gait Distance 75 Other Goals Ascend/descend 2 steps without railing and PWB on RLE Days to Meet Goals 5 Frequency of Treatment Frequency Of Treatment Twice a Day Treatment Plan Physical Therapy Treatment Plan Bed Mobility Training,Transfer Training,Gait Training, Therapeutic Exercise,Balance Retraining,Post Op Education, Discharge Planning, Neuromuscular Re-ed, Coordination Retraining Precautions Brace Knee immobilizer locked at 0- 90 deg Weight Bearing Status Weight Bearing Status Partial Weight Bearing Allowed Weight Bearing Amount (enter % 50 lb at most or #) (%) Recommendations To Nursing Amount of Assist Needed 2 Person Assist Discharge Recommendations PT Discharge Recommendations SNF Rehab Transportation Needs at Discharge Private Vehicle,Wheelchair/ Cabulance
--- NOTE | 2021-08-27 13:16 | P.PN_ITS ---
Subjective Subjective Date Patient Seen: 08/27/21 Interval history: 71-year-old female with uncontrolled diabetes admitted with distal right femur fracture. Patient is status post right femur ORIF. She is having significant pain postop and difficulty mobilizing out of bed. She requires a lot of education regarding her diabetes. Exam Vital Signs (past 8 hours): - 08/27/21 08:00 08/27/21 08:09 08/27/21 09:26 Temperature 97.8 F Pulse Rate 80 Respiratory Rate 16 Blood Pressure 149/86 H Pulse Oximetry 100 96 93 08/27/21 11:34 Temperature 98.4 F Pulse Rate 95 H Respiratory Rate 16 Blood Pressure 145/73 H Pulse Oximetry 99 Oxygen Delivery Method Room Air Oxygen Flow Rate 0 Narrative Exam Narrative: General: Alert, NAD Lungs: Clear Heart: Regular rhythm Extremities: No edema Objective Labs Result Diagrams: 08/27/21 05:10 08/27/21 05:10 Labs: Laboratory Results - last 24 hr 08/27/21 08/27/21 05:10 05:10 WBC 8.2 RBC 3.59 L Hgb 10.9 L Hct 31.4 L MCV 87.4 MCH 30.3 MCHC 34.6 RDW 12.7 Plt Count 214 Neut % (Auto) 69.5 Lymph % (Auto) 21.2 L [place] % (Auto) 8.3 Eos % (Auto) 0.7 L Baso % (Auto) 0.3 Neut # (Auto) 5700 Lymph # (Auto) 1700 [place] # (Auto) 700 Eos # (Auto) 100 Baso # (Auto) 0 Sodium 135 L Potassium 3.5 Chloride 102 Carbon Dioxide 31 BUN 17 Creatinine 0.66 Estimated GFR > 60.0 BUN/Creatinine Ratio 25.8 H Glucose 215 H Calcium 8.2 L Magnesium 1.6 Total Bilirubin 0.3 Conjugated Bilirubin 0.0 Unconjugated Bilirubin 0.4 AST 31 ALT 26 Alkaline Phosphatase 76 Total Protein 5.3 L Albumin 2.9 L Globulin 2.4 Albumin/Globulin Ratio 1.2 PFSH Medical History History of fracture of foot Kidney stones Surgical History History of right hip replacement Hx of section Hx of hysterectomy Hx of tubal ligation Family History Mother Diabetes mellitus Osteoporosis Father Medical history unknown Social History household members: spouse Smoking Status: Never smoker Assessment & Plan Assessment & Plan narrative: 1.? Right distal femur fracture -status post ORIF -continue as needed pain meds -ortho note: She can be partial weight-bearing on the right lower extremity 50 lb at most.? Her knee range of motion brace can be adjusted to keep the hinge at the knee.? She can have her brace off when she is in bed if she is more comfortable without the brace.? -postop PT/OT -likely SNF 2. Type 2 diabetes, uncontrolled -A1c greater than 13, diabetes was apparently recently diagnosed -reports 40 lb weight loss which is likely due to the diabetes -started Lantus 10 units HS, medium dose sliding scale -reported nausea with metformin and stopped it as outpatient -consider start SL G-2 inhibitor, Jardiance, on discharge -dietitian consult 3. Sinus tachycardia, apparently chronic -EKG 08/20/2021 showed sinus tach, possible old IMI -consider echo as outpatient -telemetry -started metoprolol ER 25 mg b.i.d. 4. Hypothyroidism, untreated -TSH 18 with normal free T4 -started levothyroxine 25 mcg q.a.m. -repeat TFTs in 4-6 weeks DVT prophylaxis: ASA 81 mg b.i.d. per Ortho Time Spent With Patient Critical Care time: I spent a total of [] minutes of critical care time on this patient's care today; this time is exclusive of procedural time. Quality VTE Deep Vein Thrombosis/Pulmonary Embolism Present on Admission: No
--- NOTE | 2021-08-27 14:45 | CM.DPC ---
DCP/continued: Reviewed chart. Received verbal referral from Dr. Lindsay indicating that patient will need SNF for rehabilitation. Met with patient explained CM/SW role. Patient agreeable to short SNF stay. Medicare Choice List provided. Patient encouraged to review list with spouse and check quality ratings at website provided. Patient made aware that because she has [employer] Medicare ADV her options are limited. Patient specifically reviewing both [facility] and [facility]. CM steam fitter to follow up with patient in AM to get choice so that facility can be contacted and authorization started. P: SNF when stable. Anticipate d/c to [facility] or [facility]. MATT Gonzalez
--- NOTE | 2021-08-27 15:04 | PT.IPTN ---
Current Diagnoses Type 2 diabetes mellitus with hyperglycemia (08/25/21) Pain in leg, unspecified (08/25/21) Tachycardia, unspecified (08/25/21) Abnormal weight loss (08/25/21) Unspecified fracture of lower end of unspecified femur, initial encounter for closed fracture (08/25/21) Unspecified fracture of right femur, initial encounter for closed fracture (08/25/21) Surgery Performed Operation Date: 08/26/21 11:30 Actual Procedures p ORIF Femur Fracture(Right) - Denia Lindsay MD Physical Therapy Treatment Note M2 PT-IP Current Condition Start: 08/27/21 12:47 Freq: Status: Active Protocol: Document 08/27/21 14:57 BC (Rec: 08/27/21 15:04 BC [id number]) Physical Therapy Current Condition Current Condition Evaluation Date 08/27/21 Treatment Diagnosis abnormal gait Onset Date 08/26/2021 M3 PT-IP Subjective Start: 08/27/21 12:47 Freq: Status: Active Protocol: Document 08/27/21 14:57 BC (Rec: 08/27/21 15:04 BC [id number]) Subjective Physical Therapy Visit Type Type Treatment Note Visit Start Time 14:20 Visit Stop Time 14:45 Total Visit Minutes 25 Physical Therapy Visit Comments Patient Comments Pt eager to get OOB and sit in recliner Therapy Pain Assessment Pain When Pain Assessed During Mobility Pain Present Pain Present Pain Reported Location R foot Intensity 2 Scale Used Numeric (0 - 10) Description Dull Pain Management Techniques Apply Cold Right Leg Intensity 3 Scale Used Numeric (0 - 10) Description Aching Pain Management Techniques Timing of Activity with Medications M4 PT-IP Mobility and Gait Start: 08/27/21 12:47 Freq: Status: Active Protocol: Document 08/27/21 14:57 BC (Rec: 08/27/21 15:04 BC [id number]) PT-Bed Mobility Assessment Rolling Type of Rolling Roll to Left Level of Assist Minimal Assistance Supine to Sit Supine to Sit Minimal Assistance Scooting Scooting to Edge of Bed Moderate Assistance PT-Transfer Assessment Sit to and From Stand Sit to and from Stand Minimal Assistance Equipment Transfer Assistive Device Gait Belt,Front Wheeled Walker Orthotic/Prosthetic Devices or Brace: Yes Transfers Transfer Destination Bed,Chair Transfer Technique Stand Step Pivot Transfer Ability Level of Assist Minimal Assistance Comments Mobility Comments STS from EOB and from recliner with min A. Cues for managing RLE in immobilizer as she sits to a lower chair surface. Gait Assessment Assistive Devices Orthotic/Prosthetic Devices or Brace: Yes Comments Gait Comments transfer to chair only with 2- 3 steps via stand pivot. Stair Climbing Assessment Comments Stair Climbing Comments Not appropriate yet. PT-Balance Assessment Sitting Balance and Reactions Static Sitting Balance Ability Fair Dynamic Sitting Balance Ability Fair Standing Balance and Reactions Static Standing Balance Ability Poor Dynamic Standing Balance Ability Poor Device Used FWW Comments Other Balance Tests/Deviations/Treatment Pt listing heavily and : intentionally to Left during sitting EOB. She was able to tolerate midline better this afternoon with cues. M5 PT-IP Objective Assessments Start: 08/27/21 12:47 Freq: Status: Active Protocol: Document 08/27/21 12:48 BC (Rec: 08/27/21 13:01 [id number]) Orientation Orientation/Cognition Level of Alertness Alert Orientation Name,Date,Place,Situation Safety Awareness Understands Safety Issues Gross Range of Motion Upper Extremity ROM Assessment Within Functional Limits Lower Extremity ROM Assessment Right Impaired Impairments Knee immobilizer maintaining 0 -90 deg of R knee flexion only Strength Upper Extremity Strength Assessment Within Functional Limits Lower Extremity Strength Assessment Right Impaired Hip 2/5 Knee 2/5 Ankle 5/5 Sensation Assessment Sensation Gross Sensation WNL Light Touch Intact Proprioception (Position) Intact Muscle Tone Muscle Tone WNL Yes M6 PT-IP Treatment Start: 08/27/21 12:47 Freq: Status: Active Protocol: Document 08/27/21 14:57 BC (Rec: 08/27/21 15:04 [id number]) Physical Therapy Treatment Education Education Provided Precautions,Weight Bearing Status,Safety Other Treatments Other Treatment Performed Educated on PWB RLE during transfers to lower surfaces. She will need to slide RLE forward as she sits due to limited knee flexion range in immobilizer. M7 PT-IP Assessment and Plan Start: 08/27/21 12:47 Freq: Status: Active Protocol: Document 08/27/21 14:57 BC (Rec: 08/27/21 15:04 [id number]) PT Summary Assessment and Plan Potential Rehabilitation Potential Good Status of Condition at Evaluation Evolving Summary Impairments Pain,ROM,Strength,Balance, Coordination,Bed Mobility, Transfers,Gait,Activity Tolerance Progress Towards Goals Progressing Toward Goals Assessment Summary Pt eager and agreeable to work with PT. MANAGEMENT RECRUITER reporting Pt would like to attempt sitting in chair. Pt is demonstrating less assist already this afternoon for bed mobility and improved control with stand pivot transfer. She continues to limit more than 50 lbs on RLE with steps. In standing we worked on gradually increasing weight bearing from literal toe touch to some weight (50lb limit). Pt could do this in static standing but with stand pivot transfer she is erroring on side of caution and maintains TTWB to NWB on RLE. Recommend d/c to SNF continues as Pt is well below her baseline function and would benefit from daily therapy to address functional mobility, balance, and gait with PWB. Goals Bed Mobility Goal Standby Assistance Transfer Goal Standby Assistance Gait Goal Standby Assistance Gait Distance 75 Other Goals Ascend/descend 2 steps without railing and PWB on RLE Days to Meet Goals 5 Frequency of Treatment Frequency Of Treatment Twice a Day Treatment Plan Physical Therapy Treatment Plan Bed Mobility Training,Transfer Training,Gait Training, Therapeutic Exercise,Balance Retraining,Post Op Education, Discharge Planning, Neuromuscular Re-ed, Coordination Retraining Precautions Brace Knee immobilizer locked at 0- 90 deg Weight Bearing Status Weight Bearing Status Partial Weight Bearing Allowed Weight Bearing Amount (enter % 50 lb at most or #) (%) Recommendations To Nursing Amount of Assist Needed 1 Person Assist Discharge Recommendations PT Discharge Recommendations SNF Rehab Transportation Needs at Discharge Private Vehicle,Wheelchair/ Cabulance
--- NOTE | 2021-08-27 15:15 | PC.NURSE ---
Day shift: Pt OOB and sitting in chair. Reading a book w/ no complaints. Pain remains well controlled per JUL. Per PT Kisha, the Pt is doing very well with transfers and ambulating per the 50% WBAT RLE. Call light in reach and the chair alarm is on. Pt agrees to not get OOB w/o help from staff. Denies any nausea or chest pain. VS remain WNL. Will continue with plan of care. Pt was also given written information on DM type II today.
[2021-08-27] MEDS: METOPROLOL IR 25 MG TABLET PO (21:33)
[2021-08-27] MEDS: INSULIN GLARGINE 100 UNIT/ML 3ML PEN 10 UNIT SUBCUT (21:45)
[2021-08-28] VITALS (7 sets, daily range): BP systolic 114–153; BP diastolic 59–88; PULSE 73–90; RESP 16–22; TEMP 36.4–36.9; O2SAT 97–99
[2021-08-28] MEDS: LEVOTHYROXINE 25 MCG TABLET PO (06:09)
[2021-08-28] MEDS: ASPIRIN EC 81 MG TABLET PO ×2 (08:20→21:02)
[2021-08-28] MEDS: DOCUSATE 100 MG CAPSULE PO ×2 (08:20→21:02)
[2021-08-28] MEDS: ACETAMINOPHEN 325 MG TABLET 975 MG PO ×3 (08:20→21:01)
[2021-08-28] MEDS: METOPROLOL IR 25 MG TABLET PO ×2 (08:21→21:02)
[2021-08-28] MEDS: OXYCODONE IR 5 MG TABLET PO ×5 (08:21→21:57)
[2021-08-28] MEDS: polyethylene glycoL 3350 17 GM POWD.PACK PO (08:22)
[2021-08-28] MEDS: INSULIN LISPRO 100 UNIT/ML 3ML VIAL SUBCUT ×4 (08:26→21:07)
--- NOTE | 2021-08-28 11:01 | PT.IPTN ---
Current Diagnoses Type 2 diabetes mellitus with hyperglycemia (08/25/21) Pain in leg, unspecified (08/25/21) Tachycardia, unspecified (08/25/21) Abnormal weight loss (08/25/21) Unspecified fracture of lower end of unspecified femur, initial encounter for closed fracture (08/25/21) Unspecified fracture of right femur, initial encounter for closed fracture (08/25/21) Surgery Performed Operation Date: 08/26/21 11:30 Actual Procedures p ORIF Femur Fracture(Right) - Denia Lindsay MD Physical Therapy Treatment Note M2 PT-IP Current Condition Start: 08/27/21 12:47 Freq: Status: Active Protocol: Document 08/27/21 14:57 BC (Rec: 08/27/21 15:04 BC [id number]) Physical Therapy Current Condition Current Condition Evaluation Date 08/27/21 Treatment Diagnosis abnormal gait Onset Date 08/26/2021 M3 PT-IP Subjective Start: 08/27/21 12:47 Freq: Status: Active Protocol: Document 08/28/21 10:35 KS (Rec: 08/28/21 11:43 KS [id number]) Subjective Physical Therapy Visit Type Type Treatment Note Visit Start Time 10:35 Visit Stop Time 11:01 Total Visit Minutes 26 Notes Pts daughter present during treatment. Number of [employer] Visits 1 Physical Therapy Visit Comments Patient Comments Pt agreeable to transfer to chair. Therapy Pain Assessment Pain When Pain Assessed At Rest Pain Present Pain Present Pain Reported Location R foot Intensity 7 Scale Used Numeric (0 - 10) Pain Management Techniques Apply Cold M4 PT-IP Mobility and Gait Start: 08/27/21 12:47 Freq: Status: Active Protocol: Document 08/28/21 10:35 KS (Rec: 08/28/21 11:43 KS [id number]) PT-Bed Mobility Assessment Supine to Sit Supine to Sit Moderate Assistance,1 Person Assistance,Head of Bed Elevated Scooting Scooting to Edge of Bed Moderate Assistance PT-Transfer Assessment Sit to and From Stand Sit to and from Stand Moderate Assistance,1 Person Assistance,Use of Upper Extremities Equipment Transfer Assistive Device Gait Belt,Front Wheeled Walker Orthotic/Prosthetic Devices or Brace: Yes Transfers Transfer Destination Chair Transfer Technique Stand Step Pivot Transfer Ability Level of Assist Minimal Assistance,Moderate Assistance,1 Person Assistance ,Use of Upper Extremities Comments Mobility Comments Pt in bed upon arrival but agreeable to transfer to chair . Mod A for sup<>sit, pt w/ increased difficulty mobilizing RLE due to pain and required support to avoiding knee flexion due to increase pain w/ flexion. Mod A for scooting EOB. Mod A and cues for hand placement for sit<> Stand w/ FWW. Pt more TTWB during stand and transfer but out slightly more weight through RLE when cued. Min/Mod A for stand step pivot from bed to chair for balance and FWW management. Mod A for slow descent. Pt agreeable to practice standing and weight shifting but admits she is fearful to bear weight through RLE. Mod A and cues for hand placement for sit<>Stand w/ FWW. Pt able to weight shift more into RLE but still not meeting 50 lb PWB and requested to sit after ~ 1 min due to increased pain. Mod A for scooting back in chair. Pt left in chair w/ all needs in reach. Gait Assessment Gait Gait Assistance Required: Minimum Assistance,Moderate Assistance,1 Person Assist Distance (Feet) 2 Able to Maintain Weight Bearing Status Yes During Gait Assistive Devices Assistive Device Gait Belt,Front Wheeled Walker Orthotic/Prosthetic Devices or Brace: Yes Factors Limiting Gait Function Factors Limiting Gait Function Decreased Strength,Pain,Poor Balance Comments Gait Comments transfer to chair only with 2- 3 steps via stand pivot. Stair Climbing Assessment Comments Stair Climbing Comments Not appropriate yet. PT-Balance Assessment Sitting Balance and Reactions Static Sitting Balance Ability Fair Dynamic Sitting Balance Ability Fair Standing Balance and Reactions Static Standing Balance Ability Poor Dynamic Standing Balance Ability Poor Device Used FWW Comments Other Balance Tests/Deviations/Treatment Pt listing heavily and : intentionally to Left during sitting EOB. M5 PT-IP Objective Assessments Start: 08/27/21 12:47 Freq: Status: Active Protocol: Document 08/27/21 12:48 BC (Rec: 08/27/21 13:01 BC [id number]) Orientation Orientation/Cognition Level of Alertness Alert Orientation Name,Date,Place,Situation Safety Awareness Understands Safety Issues Gross Range of Motion Upper Extremity ROM Assessment Within Functional Limits Lower Extremity ROM Assessment Right Impaired Impairments Knee immobilizer maintaining 0 -90 deg of R knee flexion only Strength Upper Extremity Strength Assessment Within Functional Limits Lower Extremity Strength Assessment Right Impaired Hip 2/5 Knee 2/5 Ankle 5/5 Sensation Assessment Sensation Gross Sensation WNL Light Touch Intact Proprioception (Position) Intact Muscle Tone Muscle Tone WNL Yes M6 PT-IP Treatment Start: 08/27/21 12:47 Freq: Status: Active Protocol: Document 08/28/21 10:35 KS (Rec: 08/28/21 11:43 KS [id number]) Physical Therapy Treatment Education Education Provided Precautions,Weight Bearing Status,Safety Other Treatments Other Treatment Performed Continued education of PWB status, pt remains hesitant to put 50 lb through RLE due to fear and pain. M7 PT-IP Assessment and Plan Start: 08/27/21 12:47 Freq: Status: Active Protocol: Document 08/28/21 10:35 KS (Rec: 08/28/21 11:43 KS [id number]) PT Summary Assessment and Plan Potential Rehabilitation Potential Good Status of Condition at Evaluation Evolving Summary Impairments Pain,ROM,Strength,Balance, Coordination,Bed Mobility, Transfers,Gait,Activity Tolerance Progress Towards Goals Progressing Toward Goals Assessment Summary Pt agreeable to working w/ therapy but limited by pain, weakness, and low tolerance for activity. Mod A for bed mobility, sit<>Stand, and Min/ Mod A for stand step pivot from bed to chair w/ FWW needing cues for had placement and FWW management. Pt avoidant of placing 50 lb through RLE due to fear of pain and falling. She will require SNF to improve strength and functional mobility independence. Goals Bed Mobility Goal Standby Assistance Transfer Goal Standby Assistance Gait Goal Standby Assistance Gait Distance 75 Other Goals Ascend/descend 2 steps without railing and PWB on RLE Days to Meet Goals 5 Frequency of Treatment Frequency Of Treatment Twice a Day Treatment Plan Physical Therapy Treatment Plan Bed Mobility Training,Transfer Training,Gait Training, Therapeutic Exercise,Balance Retraining,Post Op Education, Discharge Planning, Neuromuscular Re-ed, Coordination Retraining Precautions Brace Knee immobilizer locked at 0- 90 deg Weight Bearing Status Weight Bearing Status Partial Weight Bearing Allowed Weight Bearing Amount (enter % 50 lb at most or #) (%) Recommendations To Nursing Amount of Assist Needed 1 Person Assist Discharge Recommendations PT Discharge Recommendations SNF Rehab Transportation Needs at Discharge Private Vehicle,Wheelchair/ Cabulance
--- NOTE | 2021-08-28 12:15 | CM.DPC ---
DCp continued: CM met with patient and discussed SNF choice. Patient would prefer going to [facility] but is open to going to [facility] just depends on bed availability. CM asked Mirela TURNER to send clinical information to both [facility] and [facility] for their review. Hannah at [facility] stated she has beds available and Radha at [facility] stated she wont have a bed available until but do not take unvaccinated patients. CURRY explained this to the patient and she was okay with having [facility] review for SNF bed placement and will need to run [employer] auth. Elizabeth conley RNcustomer support analyst
--- NOTE | 2021-08-28 13:13 | PM.PN.1 ---
Subjective Subjective Date Patient Seen: 08/28/21 Time Patient Seen: 08:00 Interval history: She continues to have significant pain. When she gets pain medications regularly it is under good control. Exam Vital Signs (past 8 hours): - 08/28/21 05:57 08/28/21 07:00 08/28/21 09:05 Temperature 97.6 F 98.4 F Pulse Rate 80 83 Respiratory Rate 16 20 Blood Pressure 129/72 148/80 H Pulse Oximetry 98 99 97 08/28/21 11:00 Temperature 98.3 F Pulse Rate 82 Respiratory Rate 22 Blood Pressure 123/68 Pulse Oximetry 98 Oxygen Delivery Method Room Air Oxygen Flow Rate 0 Narrative Exam Narrative: General:? Alert, no acute distress Lungs:? clear bilaterally Heart:? regular rate and rhythm Extremities:? right leg in brace Objective Labs Result Diagrams: 08/27/21 05:10 08/27/21 05:10 [facility] Medical History History of fracture of foot Kidney stones Surgical History History of right hip replacement Hx of section Hx of hysterectomy Hx of tubal ligation Family History Mother Diabetes mellitus Osteoporosis Father Medical history unknown Social History household members: spouse Smoking Status: Never smoker Assessment & Plan Assessment & Plan narrative: 1.? Right distal femur fracture -status post ORIF -continue as needed pain meds -ortho note: She can be partial weight-bearing on the right lower extremity 50 lb at most.? Her knee range of motion brace can be adjusted to keep the hinge at the knee.? She can have her brace off when she is in bed if she is more comfortable without the brace.? -postop PT/OT shows that she is quite weak 2. Type 2 diabetes, uncontrolled -A1c greater than 13, diabetes was apparently recently diagnosed -reports 40 lb weight loss which is likely due to the diabetes -started Lantus 10 units HS, medium dose sliding scale -reported nausea with metformin and stopped it as outpatient -consider start SL G-2 inhibitor, Jardiance, on discharge -dietitian consult 3. Sinus tachycardia, apparently chronic -EKG 08/20/2021 showed sinus tach, possible old IMI -consider echo as outpatient -telemetry -started metoprolol ER 25 mg b.i.d. 4. Hypothyroidism, untreated -TSH 18 with normal free T4 -started levothyroxine 25 mcg q.a.m. -repeat TFTs in 4-6 weeks DVT prophylaxis: ASA 81 mg b.i.d. per Ortho Dispo: Patient is medically stable for discharge, is pending SNF placement Time Spent With Patient Critical Care time: I spent a total of [] minutes of critical care time on this patient's care today; this time is exclusive of procedural time. Quality VTE Deep Vein Thrombosis/Pulmonary Embolism Present on Admission: No
--- NOTE | 2021-08-28 15:10 | P.PN_ITS ---
Subjective Subjective Date Patient Seen: 08/28/21 Time Patient Seen: 14:11 Interval history: Patient is complaining of mild right knee pain t today. She denies any new numbness or tingling. The plan is to get her to SNF tomorrow or the following day, depending on bed availability. She has also been getting diabetes Education. Exam Vital Signs (past 8 hours): - 08/28/21 09:05 08/28/21 11:00 08/28/21 15:00 Temperature 98.3 F 98.5 F Pulse Rate 82 73 Respiratory Rate 22 20 Blood Pressure 123/68 114/59 L Pulse Oximetry 97 98 99 Oxygen Delivery Method Room Air Oxygen Flow Rate 0 Narrative Exam Narrative: Pleasant 71-year-old female, resting comfortably in bed, no acute distress. Dressing demonstrates some scant dried bloody drainage on the distal aspect of the bandage, no surrounding erythema or induration. Bilateral lower extremity: Dorsiflexion is 4+ on the right side as compared to 5/5 on the left. Plantar flexion is 5/5 bilaterally. Sensation is grossly intact bilaterally. Calves are soft and nontender to palpation. Objective Labs Result Diagrams: 08/27/21 05:10 08/27/21 05:10 [facility] Medical History History of fracture of foot Kidney stones Surgical History History of right hip replacement Hx of section Hx of hysterectomy Hx of tubal ligation Family History Mother Diabetes mellitus Osteoporosis Father Medical history unknown Social History household members: spouse Smoking Status: Never smoker Assessment & Plan Post-op Postoperative Procedures: Procedures Operation Date: 08/26/21 11:30 Actual Procedure Side Surgeon p ORIF Femur Fracture Right Denia Lindsay MD Postoperative day: 2 Postoperative status narrative: -stable status post right femur distal ORIF -uncontrolled diabetes Postoperative plan narrative: -mobilize with PT. Partial weight-bearing on the right lower extremity with a 50 lb weight limit, with front wheeled walker Mobilize out of bed to the chair. She can be partial weight-bearing on the right lower extremity 50 lb at most. -Her knee range of motion brace can be adjusted to keep the hinge at the knee. She can have her brace off when she is in bed if she is more comfortable without the brace. -continue with multimodal pain management -continue with current DVT prophylaxis: Aspirin 81 mg b.i.d. x6 weeks -She has multiple medical problems including very poorly controlled recently diagnosed diabetes. -DC: likely she will require discharge to a half-way facility to work on rehab for her right leg as well as optimally managing her diabetes postoperativ ever in order to allow for wound and bone healing. This was specifically discussed with her. -recheck dorsiflexion and plantar flexion strength tomorrow, as she has slightly decreased in dorsiflexion strength right as compared to left. Quality VTE Deep Vein Thrombosis/Pulmonary Embolism Present on Admission: No
--- NOTE | 2021-08-28 15:27 | PT-IP ANOTE ---
Attempted to work with pt for PM PT tx but pt had just returned to bed and reported too much fatigue. Will continue to follow.
--- NOTE | 2021-08-28 17:12 | DIET.CONS ---
Dietary Consultation Note Admission Date: 08/25/2021 22:51 Assessment: 71 y/o F admitted after fall and treated for femur fracture. RD consulted for uncontrolled DM. Maria T reports a 30-40# weight loss related to hyperglycemia. States this is a new diagnosis. Was taking Metformin 2 tablets every morning with food. Unclear of dosage. States she stopped taking after two days d/t GI upset. Since admit she has been on 10u glargine and 1-7u SSI based ac BG. Cont to have hyperglycemia with recent BG ranging from 160-340 mg/dL. Last two fastings elevated at 164 and 192. States she is not one to take medications. Would prefer to manage her DM with lifestyle. Endorses a lot of emotional and physical stress since March. Endorses eating what I want in response to stress. Has cut out juice since diagnosis. Diet recall: B: oatmeal and fruit L: soup D: pasta and shrimp little or no veggies no snacks Beverages; water and milk Nutrition focused physical exam: moderate temporal depression, some depth to fat tissue of triceps and loose fitting skin (which she noted as significant for her as of recent). Reports UBW around 150s#. Wt hx in 2019 of 149.6#. If this is her usual wt, this would indicate a 20% loss over the last 3-6 months, which would be a severe weight loss. BMI moderately low for age (<23) Ht: 154.94 cm Wt: 54.431 kg BMI: 22.6 Last BM: 08/28/21 (08/28/21 09:25) MNA: 4 Roman Score: 20 Diet: 08/26/21 Dinner Carbohydrate Consistent Diet Diet Modifications: Carbohydrate level: Medium (3 CHO) Nutrition Percent Meal Consumed 100% 08/28/21 12:42 Percent Meal Consumed 50% 08/28/21 09:25 Percent Meal Consumed 100% 08/27/21 15:32 Percent Meal Consumed 100% 08/27/21 08:35 Labs: RBC 3.59 X10^6/uL (4.0-5.2) L 08/27/21 05:10 Hgb 10.9 g/dL (12.0-16.0) L 08/27/21 05:10 Hct 31.4 % (36-46) L 08/27/21 05:10 Creatinine 0.66 mg/dL (0.52-1.04) 08/27/21 05:10 Hemoglobin A1c 13.7 % (4.0-6.0) H 08/25/21 20:35 Nutrition Diagnosis: Moderate protein calorie malnutrition r/t hyperglycemia and newly dx DM aeb HgA1c of 13.7%, hyperglycemia, reported severe wt loss, NFPE indicating moderate muscle wasting, and low for age BMI. Interventions: 1. Rec considering slight inc to glargine given elevated FBG. May need SSI adjusted given BG over 200. Pt is pending SNF. 2. Provided medical nutrition therapy for malnutrition and diabetes: plate method, focusing on proteins, moderate carb intake and higher fiber options, aiming for more veggies. 3. Suggested Maria T discuss medication management with PCP. Encouraged her to reconsider taking Metformin in the future at a lower dose + titration with guidance from provider prn. Reviewed SE of Metformin are often short-lived for most people if she can tolerate. 4. Provided OP DSME resources. Enc her to call our office with questions regarding DM or scheduling OP care. Nutrition rx: 1600kcals (30kcal/kg per BMI); 160g CHO (40%kcals) ; 81g PRO (per malnutrition 1.5g/kg) Monitoring/Evaluations: consult prn Electronically Signed by: Dorinda Hernandez 08/28/21 17:12 Clinical Dietitian [address] [id number]
[2021-08-28] MEDS: INSULIN GLARGINE 100 UNIT/ML 3ML PEN 10 UNIT SUBCUT (21:04)
[2021-08-29] MEDS: OXYCODONE IR 5 MG TABLET PO ×4 (03:17→13:02)
[2021-08-29 03:25] VITALS: BP 149/78; PULSE 77; RESP 17; TEMP 36.5; O2SAT 99
[2021-08-29] MEDS: LEVOTHYROXINE 25 MCG TABLET PO (06:06)
[2021-08-29 07:00] VITALS: BP 164/69; PULSE 79; RESP 20; TEMP 36.1; O2SAT 100
[2021-08-29 08:00] VITALS: O2SAT 99
[2021-08-29] MEDS: polyethylene glycoL 3350 17 GM POWD.PACK PO (09:04)
[2021-08-29] MEDS: ASPIRIN EC 81 MG TABLET PO (09:07)
[2021-08-29] MEDS: DOCUSATE 100 MG CAPSULE PO (09:07)
[2021-08-29] MEDS: METOPROLOL IR 25 MG TABLET PO (09:07)
[2021-08-29] MEDS: ACETAMINOPHEN 325 MG TABLET 975 MG PO (09:07)
[2021-08-29] MEDS: INSULIN LISPRO 100 UNIT/ML 3ML VIAL SUBCUT ×2 (09:11→11:48)
[2021-08-29 09:45] VITALS: O2SAT 99
--- NOTE | 2021-08-29 10:20 | P.DS_ITS ---
History of Present Illness History of Present Illness Chief complaint: Fall Narrative: Per Cassandra Xiong: Maria T Vaughn is a 71-year-old female with a recent new diagnosis of diabetes type 2, was descending her stairs in her home when she slipped and fell 2 steps from the bottom.? She states she does not know what happened only that she thought it was from wearing thin socks that she slept.? She did not recall passing out, though she is currently feeling ?fuzzy? due to the medications she received in the emergency room.? She states she has a history of ?racing heart? and has apparently lost 40 lb without trying over the past 6 months.? She is in the process of getting connected with a new PCP.? She denies headaches, hitting her head, shortness of breath, nausea vomiting, abdominal pain, diarrhea or constipa tion, she does find painful to the urinate due to having to move around.? She does endorse having bilateral hip pain that involves nerve pain down her leg, she was told that she had a bone on bone.? States that she was diagnosed about 2 weeks ago with diabetes type 2, she was initiated on metformin however she states that it gave her nausea and that she stop taking it.? States that she is changing physicians but does not know the name of the physician she is changing to, she believes it might be [facility].? She apparently left everything at home and does not have any information on when her next appointments are. Hip and knee x-rays ordered in the emergency department reported out a mildly displaced distal femoral fracture extending to the knee joint and moderate joint effusions with the Lipo hemarthrosis of the right knee.? She is afebrile, blood pressure 140/84, heart rate 121, respiratory rate 20, oxygen saturation 98% on room air, she weighs 54.4 kg with a BMI of 22.6.? WBC is unremarkable, sodium is 134, BUN 27, glucose 442, her A1c is 13.7, ALT is mildly elevated at 38 and her alk phos is 140, and COVID-19 PCR is negative. Discharge Providers Provider Date of admission: 08/25/21 22:51 Discharge Date: 08/29/21 Primary care physician: Chani Harris MD Consults: 08/25/21 23:02 Consult to Physician Routine Comment: Consulting Provider: Lindsay,Denia A Reason for consultation: right femur fracture Has provider been notified: Yes 08/26/21 13:52 Consult to Anesthesiology Routine Comment: Consulting Provider: Anesthesiologist Reason for consultation: Regional block for post operative pain control 08/26/21 17:41 Consult to Discharge Planning Routine Comment: Consult to Physical Therapy Evaluate & Treat Comment: Physician Instructions: Evaluate and Treat Consult to Respiratory Therapy Evaluate & Treat Comment: Physician Instructions: Evaluate and treat 08/27/21 13:14 Consult to Dietitian, Adult Routine Comment: Reason For Exam: uncontrolled diabetes Discharge provider: Basilio Arriaga MD Summary Hospital Course Discharge Diagnosis: 1. Right distal femur fracture s/p ORIF 2. Type 2 Diabetes, poorly controlled 3. Sinus tachycardia 4. Hypothyroidism 5. Moderate protein calorie malnutrition Hospital Course: Ms. Jannette Vaughn was admitted after a fall and found to have a distal femur fractu re and she underwent right ORIF. She is ok to have partial weight-bearing on the right leg with 50lb at most. She should be on aspirin BID for six weeks. She was discharged to SNF for PT/OT. She should follow up with orthopedic surgery ......... She was also found to have a1c >13, she has lost 40lbs from this, and has moderate malnutrition and is treated as above, and was seen by dietitian. She was also tachycardic and started on metoprolol, can consider outpatient ECHO. In addition she was found to have hypothyroidism which may be the cause of her tachycardia. She was started on synthroid and should have her synthroid level rechecked in 4-6 weeks. Per ortho she can have her brace off while she is in bed if this is more comfortable. She should follow up with Dr. Lindsay, orthopedic surgeon, in 10-14 days. Exam Vital Signs (past 8 hours): - 08/29/21 03:25 08/29/21 07:00 08/29/21 09:45 Temperature 97.7 F 97.0 F L Pulse Rate 77 79 Respiratory Rate 17 20 Blood Pressure 149/78 H 164/69 H Pulse Oximetry 99 100 99 Oxygen Delivery Method Room Air Oxygen Flow Rate 0 Narrative Exam Narrative: General:? Alert, no acute distress Lungs:? clear bilaterally Heart:? regular rate and rhythm Extremities:? right leg in brace Objective Labs Result Diagrams: 08/27/21 05:10 08/27/21 05:10 [facility] Medical History History of fracture of foot Kidney stones Surgical History History of right hip replacement Hx of section Hx of hysterectomy Hx of tubal ligation Family History Mother Diabetes mellitus Osteoporosis Father Medical history unknown Social History household members: spouse Smoking Status: Never smoker Discharge Plan Discharge Plan Patient Disposition: SNF Discharge orders & Medications Prescriptions: New acetaminophen 325 mg Tablet 975 mg PO TID Qty: 10 0RF polyethylene glycol 3350 17 gram Powder In Packet 17 gm PO DAILY Qty: 10 0RF aspirin 81 mg Tablet,Delayed Release (Dr/Ec) 81 mg PO BID Qty: 10 0RF levothyroxine [Synthroid] 25 mcg Tablet 25 mcg PO DAILY@0600 Qty: 10 0RF docusate sodium 100 mg Capsule 100 mg PO BID Qty: 10 0RF oxycodone 5 mg Tablet 5 mg PO Q3HR PRN (Reason: Pain, Moderate (4-6)) Qty: 30 0RF metoprolol tartrate 25 mg Tablet 25 mg PO BID Qty: 10 0RF Lantus Solostar U-100 Insulin 100 unit/mL (3 mL) Insulin Pen 10 unit SUBCUT 2100 Qty: 15 0RF Follow up/Referrals: Chani Harris MD [Primary Care Provider] - Denia Lindsay MD [Physician] - (10-14 days for postoperative visit) Diet/Activity/Treatments Diet: Carb-consistent/Diabetic Other treatments: Dressing/Wound care: -Remove the Skip wrap 48 hours after surgery. -Keep Devin dressing in place until postoperative follow-up office visit. If the pump stops working, ok to cut tubing off and cover with occlusive dressing. -Okay to shower. Keep wound out of direct water stream. No soaking or banerjee bmerging until all the scabs fall off (approximately 6 weeks). -Please call the office if dressing becomes wet, soiled, or saturated. Activities: -Partial weight-bearing on the right lower extremity with a 50 lb weight limit, with front wheeled walker Mobilize out of bed to the chair. She can be partial weight-bearing on the right lower extremity 50 lb at most. -Knee range of motion brace can be adjusted to keep the hinge at the knee. She can have her brace off when she is in bed if she is more comfortable without the brace. -Elevate ?toes above the nose if you have significant swelling in your lower leg. (A wedge pillow is easiest.) -Ice your incision as needed for pain/inflammation/swelling. Protect your skin with a folded pillowcase. -continue with current DVT prophylaxis: Aspirin 81 mg b.i.d. x6 weeks Follow-up: -Follow-up with your surgeon or PA in the office in 10-14 days after surgery. -Follow-up with your surgeon 6 weeks postoperatively. Call the office if you have chest pain, shortness of breath, significant swelling that will not resolve with elevating, fever over 101?, significantly worsening pain. [facility]: [phone] Skin/Wound/Dressing Care Report to your healthcare provider any signs of infection, such as:: chills, fever, night sweats, unusual drainage and unusual redness Visit Report/Discharge Packet Instructions: Type 2 Diabetes Discharge Data Primary Care Provider: Chani Harris VTE Deep Vein Thrombosis/Pulmonary Embolism Present on Admission: No
--- NOTE | 2021-08-29 10:30 | PT.IPTN ---
Current Diagnoses Type 2 diabetes mellitus with hyperglycemia (08/25/21) Pain in leg, unspecified (08/25/21) Tachycardia, unspecified (08/25/21) Abnormal weight loss (08/25/21) Unspecified fracture of lower end of unspecified femur, initial encounter for closed fracture (08/25/21) Unspecified fracture of right femur, initial encounter for closed fracture (08/25/21) Surgery Performed Operation Date: 08/26/21 11:30 Actual Procedures p ORIF Femur Fracture(Right) - Denia Lindsay MD Physical Therapy Treatment Note M2 PT-IP Current Condition Start: 08/27/21 12:47 Freq: Status: Active Protocol: Document 08/27/21 14:57 BC (Rec: 08/27/21 15:04 BC [id number]) Physical Therapy Current Condition Current Condition Evaluation Date 08/27/21 Treatment Diagnosis abnormal gait Onset Date 08/26/2021 M3 PT-IP Subjective Start: 08/27/21 12:47 Freq: Status: Active Protocol: Document 08/29/21 10:10 KS (Rec: 08/29/21 12:07 KS [id number]) Subjective Physical Therapy Visit Type Type Treatment Note Visit Start Time 10:10 Visit Stop Time 10:30 Total Visit Minutes 20 Number of KITCHEN DESIGNER Visits 2 Physical Therapy Visit Comments Patient Comments Pt agreeable to ambulate M4 PT-IP Mobility and Gait Start: 08/27/21 12:47 Freq: Status: Active Protocol: Document 08/29/21 10:10 KS (Rec: 08/29/21 12:07 KS [id number]) PT-Transfer Assessment Sit to and From Stand Sit to and from Stand Minimal Assistance,1 Person Assistance,Use of Upper Extremities Equipment Transfer Assistive Device Gait Belt,Front Wheeled Walker Orthotic/Prosthetic Devices or Brace: Yes Transfers Transfer Destination Chair Transfer Technique Pt ambulated w/ FWW Transfer Ability Level of Assist Minimal Assistance,1 Person Assistance,Use of Upper Extremities Comments Mobility Comments Pt in chair upon arrival and agreeable to ambulate. Min A and cues for hand placement for sit<>stand w/ FWW. Pt then ambulated ~35 ft in room w/ FWW while maintaining 50 lb PWB. Pt reports decreased pain today. She then returne dto chair and performed 2x10 ankle pumps and glute sets. Pt left in chair w/ all needs in reach. Gait Assessment Gait Gait Assistance Required: Minimum Assistance,1 Person Assist Distance (Feet) 35 Able to Maintain Weight Bearing Status Yes During Gait Assistive Devices Assistive Device Gait Belt,Front Wheeled Walker Orthotic/Prosthetic Devices or Brace: Yes Factors Limiting Gait Function Factors Limiting Gait Function Decreased Strength,Pain,Poor Balance Comments Gait Comments Pt able to tolerate 35 ft ambulation w/ FWW PWB 50 lb w/ Min A and cues for FWW management. PT-Balance Assessment Sitting Balance and Reactions Static Sitting Balance Ability Fair Dynamic Sitting Balance Ability Fair Standing Balance and Reactions Static Standing Balance Ability Fair Dynamic Standing Balance Ability Fair Device Used FWW M5 PT-IP Objective Assessments Start: 08/27/21 12:47 Freq: Status: Active Protocol: Document 08/27/21 12:48 BC (Rec: 08/27/21 13:01 BC [id number]) Orientation Orientation/Cognition Level of Alertness Alert Orientation Name,Date,Place,Situation Safety Awareness Understands Safety Issues Gross Range of Motion Upper Extremity ROM Assessment Within Functional Limits Lower Extremity ROM Assessment Right Impaired Impairments Knee immobilizer maintaining 0 -90 deg of R knee flexion only Strength Upper Extremity Strength Assessment Within Functional Limits Lower Extremity Strength Assessment Right Impaired Hip 2/5 Knee 2/5 Ankle 5/5 Sensation Assessment Sensation Gross Sensation WNL Light Touch Intact Proprioception (Position) Intact Muscle Tone Muscle Tone WNL Yes M6 PT-IP Treatment Start: 08/27/21 12:47 Freq: Status: Active Protocol: Document 08/29/21 10:10 KS (Rec: 08/29/21 12:07 KS [id number]) Physical Therapy Treatment Exercises Exercises Ankle Pumps,Gluteal Sets Education Education Provided Precautions,Weight Bearing Status,Safety M7 PT-IP Assessment and Plan Start: 08/27/21 12:47 Freq: Status: Active Protocol: Document 08/29/21 10:10 KS (Rec: 08/29/21 12:07 KS [id number]) PT Summary Assessment and Plan Potential Rehabilitation Potential Good Status of Condition at Evaluation Evolving Summary Impairments Pain,ROM,Strength,Balance, Coordination,Bed Mobility, Transfers,Gait,Activity Tolerance Progress Towards Goals Progressing Toward Goals Assessment Summary Pt improved in mobility and activity tolerance today. Able to amublate ~35 ft and requiring only Min A for transfers. Able to maintain PWB throughout. She will benefit from SNF to improve strength, stability, and functional independence. Goals Bed Mobility Goal Standby Assistance Transfer Goal Standby Assistance Gait Goal Standby Assistance Gait Distance 75 Other Goals Ascend/descend 2 steps without railing and PWB on RLE Days to Meet Goals 5 Frequency of Treatment Frequency Of Treatment Twice a Day Treatment Plan Physical Therapy Treatment Plan Bed Mobility Training,Transfer Training,Gait Training, Therapeutic Exercise,Balance Retraining,Post Op Education, Discharge Planning, Neuromuscular Re-ed, Coordination Retraining Precautions Brace Knee immobilizer locked at 0- 90 deg Weight Bearing Status Weight Bearing Status Partial Weight Bearing Allowed Weight Bearing Amount (enter % 50 lb at most or #) (%) Recommendations To Nursing Amount of Assist Needed 1 Person Assist Discharge Recommendations PT Discharge Recommendations SNF Rehab Transportation Needs at Discharge Private Vehicle,Wheelchair/ Cabulance
[2021-08-29 11:00] VITALS: BP 135/64; PULSE 80; RESP 22; TEMP 35.9; O2SAT 99
[2021-08-29 11:51] LABS: COVID19 -Nasal RAPID Negative (Negative)
--- NOTE | 2021-08-29 12:46 | PC.NURSE ---
Addendum entered by Brigid Angeles R.N. 08/29/21 13:27: Pt picked up by facility transport, took pain med and used bathroom prior to leaving, reports no concerns or questions at this time, transfer packet given to facility transporter. Original Note: Report called in to Maddie at [facility]. Packet ready, waiting for pickup.
== END 2021-08-29 13:25 | DRG 481 ==
LOC: ED 20:21 → AC 22:51
PROVIDERS: Internal Medicine; Orthopaedic Surgery; Admitting Provider Nurse Practitioner Family; Emergency Provider Emergency Medicine; PCP Family Medicine; Referring Provider Emergency Medicine; Visit Provider Nurse Practitioner Family
PROC: 0QS604Z Reposition Right Upper Femur with Internal Fixation Device, Open Approach (ICD-10-PCS; principal; 2021-08-26 11:30)
DX: S72.451A Displaced supracondylar fracture without intracondylar extension of lower end of right femur, initial encounter for closed fracture (principal); E44.0 Moderate protein-calorie malnutrition; E03.9 Hypothyroidism, unspecified; R00.0 Tachycardia, unspecified; E11.65 Type 2 diabetes mellitus with hyperglycemia; E11.40 Type 2 diabetes mellitus with diabetic neuropathy, unspecified; W10.9XXA Fall (on) (from) unspecified stairs and steps, initial encounter; Z68.22 Body mass index [BMI] 22.0-22.9, adult; Z20.822 Contact with and (suspected) exposure to COVID-19
CPT/HCPCS: 36415; 71045; 73552; 73560; 76000; 80048; 80053; 80076; 82962; 83036; 83735; 84439; 84443; 85025; 85610; 87635; 94760; 96374; 96376; 97116; 97162; 97530; 99284; C9803; C9290; J0131; J0171; J1100; J1170; J1815; J2270; J2405; J2704; J3010; J3410

== ENCOUNTER 2021-10-01 10:11 | Emergency (ER) | payer OTHER, SELFPAY ==
[2021-08-25 23:17] VITALS: BMI 22.6
[2021-10-01] VITALS (10 sets, daily range): BP systolic 122–169; BP diastolic 68–103; PULSE 92–121; RESP 18; TEMP 36.8; O2SAT 98–100; BMI 22.4
--- NOTE | 2021-10-01 10:23 | ED_ITS ---
HPI - Extremity Problem General Chief complaint: Extremity Injury, Lower Stated complaint: Rt foot red/swollen post femur surgery on 08/25 Time Seen by Provider: 10/01/21 10:19 History of Present Illness HPI Narrative: 71-year-old female nonsmoker presents with her in the chief complaint of gradually worsening pain in the ball of her right foot over the past few days. She denies any recent injury or history of the same. She has never had gout before. She denies dizziness, weakness or lightheadedness. She has no chest pain, shortness of breath nor nausea or vomiting. She has chronic pain in her right hip that is thought to be related to a previous hip surgery many years ago and there is report of the hardware loosening. She had been seen by local orthopedics about 1 month ago after suffering a fall resulting in distal femur fracture which required subsequent surgical intervention. She lives at home in at any home nurse check on her foot yesterday and was encouraged to seek care today. Her pain is worse with motion and ambulation and improves with rest. She has significant pain in an ongoing fashion in her right hip that seems to radiate down her entire leg. She denies any significant swelling, redness or other abnormality that is obvious Related Data Previous Rx's Medication Instructions Recorded acetaminophen 325 mg tablet 975 mg PO TID #10 tab 08/29/21 aspirin 81 mg tablet,delayed 81 mg PO BID #10 tab 08/29/21 release docusate sodium 100 mg capsule 100 mg PO BID #10 cap 08/29/21 insulin glargine 100 unit/mL (3 10 unit (0.1 mL) SUBCUT 2100 #15 ml 08/29/21 mL) subcutaneous pen (Lantus Solostar U-100 Insulin) levothyroxine 25 mcg tablet 25 mcg PO DAILY@0600 #10 tab 08/29/21 (Synthroid) metoprolol tartrate 25 mg tablet 25 mg PO BID #10 tab 08/29/21 oxycodone 5 mg tablet 5 mg PO Q3HR PRN #30 tab 08/29/21 polyethylene glycol 3350 17 gram 17 gm PO DAILY #10 ea 08/29/21 oral powder packet apixaban 5 mg (74 tabs) tablets in See Rx Instructions .ROUTE 10/01/21 a dose pack (Eliquis DVT-PE Treat .COMPLEX #74 ea 30D Start) Allergies Allergy/AdvReac Type Severity Reaction Status Date / Time cephalexin [From Keflex] Allergy Unknown Verified 08/26/21 13:19 naproxen Allergy Unknown Verified 08/26/21 14:15 gabapentin AdvReac Severe Agitated Verified 08/26/21 13:19 Review of Systems Review of Systems Narrative: GENERAL: Denies chills, fatigue, malaise, fever, sweats. HEENT: Denies sinus pain, ear pain, sore throat, difficulty swallowing, dizziness. RESPIRATORY: Denies dyspnea, cough, wheezing, hemoptysis, sputum. CARDIOVASCULAR: Denies chest pain, palpitations, orthopnea, edema, GASTROINTESTINAL: Denies nausea, vomiting, abdominal pain, diarrhea, constipation, melena. : Denies dysuria, frequency, incontinence, hematuria, urinary retention. MUSCULOSKELETAL: See HPI SKIN: Denies rash, skin lesions, or other NEUROLOGIC: Denies weakness, headache, numbness, change in speech, confusion, seizures, incoordination. PSYCHIATRIC: No concerning psychosocial issues. 12 point review of systems is negative except for those stated above Patient History Medical History History of fracture of foot Kidney stones Surgical History History of right hip replacement Hx of section Hx of hysterectomy Hx of tubal ligation Family History Mother Diabetes mellitus Osteoporosis Father Medical history unknown Social History household members: spouse Smoking Status: Never smoker Smoking Status: Never smoker alcohol intake frequency: 0-2 drinks per day Substance Use Type: does not use Exam Narrative Exam Narrative: GENERAL: [71 year old patient appears stated age. Well-developed patient, in mild distress. In pain, tearful HEAD: Atraumatic. Normocephalic. EYES: Pupils equal round and reactive. Extraocular motions intact. No scleral icterus. No injection or drainage. ENT: Nose without bleeding, purulent drainage. Throat without erythema, tonsillar hypertrophy or exudate. Airway patent. NECK: Trachea midline. Non tender CARDIOVASCULAR: Regular rate and rhythm without murmurs, gallops, or rubs. RESPIRATORY: Clear to auscultation. Breath sounds equal bilaterally. No wheezes, rales, or rhonchi. GASTROINTESTINAL: Abdomen soft, non-tender, nondistended. EXTREMITIES: Pain on palpation of right hip, worse with passive or active range of motion or axial loading, no shortening or external rotation. Scar at lateral distal femur healing appropriately without notable swelling, dehiscence or drainage. Plantar surface of right desizing machine back tender to palpate at 1st metatarsophalangeal joint without obvious swelling, redness or deformity. No surrounding erythema, no pain on palpation from the dorsal aspect of the foot, cap refill less than 2 seconds, dorsalis pedis palpable BACK: Nontender without deformity or crepitance. No flank tenderness. NEURO: AOx3. SKIN: No rash or erythema of visible areas Initial Vital Signs Initial Vital Signs: Vital Signs Pulse Rate 121 H 10/01/21 10:23 Blood Pressure 122/103 H 10/01/21 10:23 Pulse Oximetry 100 10/01/21 10:23 Course Orders Ordered: Discontinued Medications Apixaban (Apixaban 5 Mg Tablet) 10 mg PO NOW ONE Stop: 10/01/21 13:29 Last Admin: 10/01/21 13:39 Dose: 10 mg Documented by: ROLAND Sodium Chloride (Normal Saline 0.9%) 500 mls @ 1,000 mls/hr IV BOLUS ONE Stop: 10/01/21 10:53 Last Infusion: 10/01/21 12:25 Dose: 0 mls/hr Documented by: Admin: 10/01/21 11:47 Dose: 1,000 mls/hr Documented by: ROLAND Consultations Consultation #1: discussed with patient's orthopedic group ([facility] ) and no change in plan, no other imaging needed, no need for change in appointment Vital Signs Vital signs: Vital Signs - 8 hr 10/01/21 10:23 10/01/21 10:30 10/01/21 10:42 Temperature 98.2 F Pulse Rate 121 H 114 H Respiratory Rate 18 Blood Pressure 122/103 H 122/103 H Pulse Oximetry 100 100 98 10/01/21 11:00 10/01/21 11:30 10/01/21 11:37 Temperature Pulse Rate 106 H 97 H 100 H Respiratory Rate Blood Pressure 162/68 H Pulse Oximetry 100 100 100 10/01/21 12:00 10/01/21 12:31 10/01/21 13:00 Temperature Pulse Rate 95 H 92 H Respiratory Rate Blood Pressure 169/78 H Pulse Oximetry 99 100 10/01/21 13:30 Temperature Pulse Rate 92 H Respiratory Rate Blood Pressure Pulse Oximetry 100 MDM - Extremity (Nontraumatic) Lab Data Result diagrams: 10/01/21 11:34 10/01/21 11:34 Labs: Lab Results 10/01/21 10/01/21 Range/Units 11:34 11:34 WBC 6.7 (4.5-11.0) X10^3/uL RBC 4.61 (4.0-5.2) X10^6/uL Hgb 14.0 (12.0-16.0) g/dL Hct 40.7 (36-46) % MCV 88.3 (80-100) fL MCH 30.3 (26-34) PG MCHC 34.3 (30-36) % RDW 13.6 (11.6-14.8) % Plt Count 286 (150-400) X10^3/uL Neut % (Auto) 58.2 (50-75) % Lymph % (Auto) 31.3 (25-40) % Perkins % (Auto) 8.5 (3-14) % Eos % (Auto) 1.0 L (2-4) % Baso % (Auto) 1.0 (0-2) % Neut # (Auto) 3900 (2617-1130) /uL Lymph # (Auto) 2100 (2104-4839) /uL Perkins # (Auto) 600 (0-900) /uL Eos # (Auto) 100 (0-450) /uL Baso # (Auto) 100 (0-100) /uL ESR 15 (0-20) MM/HR Sodium 134 L (137-145) mmol/L Potassium 3.8 (3.4-5.1) mmol/L Chloride 101 (98-107) mmol/L Carbon Dioxide 29 (22-32) mmol/L BUN 19 H (7-17) mg/dL Creatinine 0.58 (0.52-1.04) mg/dL Estimated GFR > 60 (>60) mL/min BUN/Creatinine Ratio 32.8 H (6-22) Glucose 280 H (80-110) mg/dL Uric Acid 2.8 (2.5-6.2) mg/dL Calcium 9.5 (8.4-10.2) mg/dL Total Bilirubin 0.7 (0.2-1.3) mg/dL AST 28 (14-36) IU/L ALT 31 (<35) IU/L Alkaline Phosphatase 156 H (38-126) U/L C-Reactive Protein 0.6 (<1.0) mg/dL Total Protein 6.8 (6.3-8.2) g/dL Albumin 4.0 (3.5-5.0) g/dL Globulin 2.8 (1.7-4.1) g/dL Albumin/Globulin Ratio 1.4 (1.0-2.8) Imaging Data CT scan - chest: Radiologist's Impression: [address] [address] [address] Scan Report Signed Patient: Maria T Vang MR#: [id number] : 1950 Acct:[id number] Age/Sex: 71 / F Date of Service: 10/01/21 Loc: ED Accession Number: [id number] ?? Procedure: CT angio chest PE protocol Ordering Provider: Kenny Kenyon D.O. PROCEDURE:? CT ANGIO CHEST PE PROTOCOL ? INDICATIONS:? tachycardia, recent surgery, new large DVT ? TECHNIQUE:? After the administration of intravenous contrast, 2 mm thick sections acquired from the pulmonary apices to the posterior costophrenic angles.? 3-dimensional maximum intensity projection (MIP) coronal and sagittal reformats were then acquired through the thorax.? For radiation dose reduction, the following was used:? automated exposure control, adjustment of mA and/or kV according to patient size.? ? COMPARISON:? [facility], CR, XR CHEST 1V, 08/25/2021, 20:35. ? FINDINGS:? Image quality:? Excellent.? ? Pulmonary arteries:? Pulmonary arteries are normal in size, and demonstrate no intraluminal filling defects to suggest central pulmonary embolism.? ? Lungs and pleura:? There is a calcified granuloma in the left lower lobe.? A couple of small inter fissure nodules are seen along the right major fissure.? No pleural effusions or pneumothorax.? Central and peripheral airways are patent.? ? Mediastinum:? Heart size is normal, without pericardial effusion.? No mediastinal or hilar adenopathy.? Thoracic aorta is normal in caliber and enhancement.? Esophagus is normal in caliber, without hiatal hernia.? ? Bones and chest wall:? No suspicious bony lesions.? Ribs and thoracic spine appear intact throughout.? Thyroid gland is normal.? There is a 0.5 cm enhancing nodule posterior to the right thyroid lobe.? No axillary or supraclavicular adenopathy.? ? Abdomen:? Visualized upper abdominal solid organs appear normal in the early arterial phase of enhancement.? A 1.4 x 0.9 cm oval-shaped soft nodule behind the stomach and medial to the spleen in the left upper abdomen, probably a splenule. ? IMPRESSION:? ? 1. No evidence for pulmonary embolism. 2. A calcified granuloma in the left lower lobe. 3. A 0.5 cm enhancing nodule posterior to the right thyroid lobe.? This could represent a parathyroid adenoma.? Please correlate with parathyroid hormone levels.? If clinically indicated, ultrasound would be helpful.? ? ? Dictated by: Renee Rodriguez M.D. on 10/01/2021 at 11:51 ? ? Approved by: Renee Rodriguez M.D. on 10/01/2021 at 12:03 ? Hip Xray: Radiologist's Impression: [place] [address] XRay Report Signed Patient: Maria T Vang MR#: [id number] : 1950 Acct:[id number] Age/Sex: 71 / F Date of Service: 10/01/21 Loc: ED Accession Number: [id number] ?? Procedure: XR hip w pel if done RT 2V Ordering Provider: Kenny Kenyon D.O. PROCEDURE:? XR HIP W PEL IF DONE RT 2V ? INDICATIONS:? pain, prior hip surgery ? TECHNIQUE:? AP pelvis with lateral view(s) of the right hip(s).? ? [facility], [facility]21, 15:21. ? FINDINGS:? ? Bones:? There is a right hip arthroplasty.? Subtle lucency along the femoral stem of the hip prosthesis.? Note is made of ORIF of distal femoral fracture.? No acute fractures or dislocations.? Pelvic ring appears intact.? No suspicious bony lesions.? ? Soft tissues:? The visualized bowel gas pattern is normal.? No suspicious soft tissue calcifications.? ? ? IMPRESSION:? ? 1. Right hip arthroplasty.? There is subtle lucency along the femoral stem of the hip prosthesis.? If there is clinical concern for prosthesis loosening or infection, a triple phase bone scan is recommended for follow-up. ? 2. No acute fracture or dislocation.? Dictated by: Renee Rodriguez M.D. on 10/01/2021 at 9:56 ? ? Approved by: Renee Rodriguez M.D. on 10/01/2021 at 9:58 ? Extremity x-ray #2: Radiologist's Impression: Jannette Maria T Vaughn??71??F??1950 ? Allergy/Adv: cephalexin, naproxen, gabapentin (More??) Close Chest CTA (Signed) Jhony Rodriguez - 10/01/21 Hip X-Ray (Signed) Jhony Rodriguez - 10/01/21 Vascular Ultrasound (Signed) Jhony Rodriguez - 10/01/21 Foot X-Ray (Signed) Jhony Rodriguez - 10/01/21 Knee X-Ray (Signed) Max Villalobos - 08/26/21 Femur X-Ray (Signed) Max Villalobos - 08/26/21 Telemetry Strips 08/25/21 Knee X-Ray (Signed) Sim Enriquez - 08/25/21 Hip X-Ray (Cancelled) 08/25/21 Femur X-Ray (Signed) Sim Enriquez - 08/25/21 Chest X-Ray (Signed) Sim Enriquez - 08/25/21 Vascular Ultrasound (Signed) Doug Panchal - 08/20/21 Abdomen/Pelvis CT (Signed) Sim Enriquez - 06/22/18 Launch?[address] [address] XRay Report Signed Patient: Jannette VaughnMaria T MR#: [id number] : 1950 Acct:[id number] Age/Sex: 71 / F Date of Service: 10/01/21 Loc: ED Accession Number: [id number] ?? Procedure: XR foot RT min 3V Ordering Provider: Kenny Kenyon D.O. PROCEDURE:? XR FOOT RT MIN 3V ? INDICATIONS:? severe pain at 1st MTP, no known injury ? TECHNIQUE:? 3 views of the foot were acquired.? ? COMPARISON:? None. ? FINDINGS:? ? Bones:? No fractures or dislocations.? No suspicious bony lesions.? Metatarsus adductus and hallux valgus.? There is mild 1st metatarsophalangeal joint degeneration.? Osteopenia. ? Soft tissues:? No tibiotalar joint effusion.? Achilles tendon appears normal.? Soft tissue swelling. ? ? IMPRESSION:? ? 1. Hallux valgus and metatarsus adductus. 2. Mild 1st metatarsophalangeal joint degeneration. 4. Osteopenia.? ? ? Dictated by: Renee Rodriguez M.D. on 10/01/2021 at 9:58 ? ? Approved by: Renee Rodriguez M.D. on 10/01/2021 at 10:00 ? US - DVT: Radiologist's Impression: Maria T Vang??71??F??1950 ? Allergy/Adv: cephalexin, naproxen, gabapentin (More??) Close Chest CTA (Signed) Jhony Rodriguez - 10/01/21 Hip X-Ray (Signed) Jhony Rodriguez - 10/01/21 Vascular Ultrasound (Signed) Jhony Rodriguez - 10/01/21 Foot X-Ray (Signed) Jhony Rodriguez - 10/01/21 Knee X-Ray (Signed) Max Villalobos - 08/26/21 Femur X-Ray (Signed) Max Villalobos - 08/26/21 Telemetry Strips 08/25/21 Knee X-Ray (Signed) Sim Enriquez - 08/25/21 Hip X-Ray (Cancelled) 08/25/21 Femur X-Ray (Signed) Sim Enriquez - 08/25/21 Chest X-Ray (Signed) Sim Enriquez - 08/25/21 Vascular Ultrasound (Signed) Doug Panchal - 08/20/21 Abdomen/Pelvis CT (Signed) Sim Enriquez - 06/22/18 Launch?Image [address] [address] Ultrasound Report Signed Patient: Maria T Vang MR#: [id number] : 1950 Acct:[id number] Age/Sex: 71 / F Date of Service: 10/01/21 Loc: ED Accession Number: [id number] ?? Procedure: periph venous low extrem rt Ordering Provider: Kenny Kenyon D.O. PROCEDURE:? US PERIPH VENOUS LOW EXTREM RT ? INDICATIONS:? PAIN, RECENT INJURY, RECENT SURGERY ? TECHNIQUE:? Real-time imaging, as well as color and pulse Doppler interrogation, were performed of the lower extremity deep veins from the inguinal ligament to the popliteal fossa.? ? COMPARISON:? [facility], PERIP VENOUS LOW EXTREM RT, 08/20/2021, 9:07. ? FINDINGS:? There are partially occlusive filling defects in the distal superficial femoral vein and popliteal vein consistent with DVT.? ? IMPRESSION:? Deep venous thrombosis involving the distal superficial femoral vein and popliteal vein. ? The preliminary result was given to Dr. Kenyon by quality systems specialist. ? ? Dictated by: Renee Rodriguez M.D. on 10/01/2021 at 10:21 ? ? Approved by: Renee Rodriguez M.D. on 10/01/2021 at 10:24 ? Discharge Plan Departure Patient Disposition: Home Clinical Impression: DVT (deep venous thrombosis), Chronic hip pain Instructions: DI for Deep Vein Thrombosis, DI for Hip Pain Activity Restrictions/Additional Instructions: *You have been diagnosed with [newly discovered DVT in right leg. *What to do: *Please continue to take your regular medications as directed. [x ] New medication prescriptions sent to your pharmacy: [[facility] ] [ ] New medication written as a paper prescription [ ] No new medications given *Please follow up with your primary care provider in 2-3 days, call for an appointment. Let them know you were seen in the Emergency Department and that we ask that you be seen in follow up. We will electronically transmit a record of today's note if your PCP is in our system. As we discussed, there is an abnormal nodule noted on your thyroid that will need to be pursued by Dr. Jacobs with outpatient imaging. *Please limit the weight bearing on your right leg until follow up. *Return to Emergency Department if you should have any new, worsening or c oncerning symptoms, such as [fever greater than 101 F, shaking chills, worsening pain, persistent vomiting or other bothersome symptoms] Prescriptions: New Eliquis DVT-PE Treat 30D Start 5 mg (74 tabs) tablets,dose pack See Rx Instructions .ROUTE .COMPLEX Qty: 74 0RF Rx Instructions: orally per package directions No Action acetaminophen 325 mg Tablet 975 mg PO TID Qty: 10 0RF polyethylene glycol 3350 17 gram Powder In Packet 17 gm PO DAILY Qty: 10 0RF aspirin 81 mg Tablet,Delayed Release (Dr/Ec) 81 mg PO BID Qty: 10 0RF levothyroxine [Synthroid] 25 mcg Tablet 25 mcg PO DAILY@0600 Qty: 10 0RF docusate sodium 100 mg Capsule 100 mg PO BID Qty: 10 0RF oxycodone 5 mg Tablet 5 mg PO Q3HR PRN (Reason: Pain, Moderate (4-6)) Qty: 30 0RF metoprolol tartrate 25 mg Tablet 25 mg PO BID Qty: 10 0RF Lantus Solostar U-100 Insulin 100 unit/mL (3 mL) Insulin Pen 10 unit SUBCUT 2100 Qty: 15 0RF Referrals: Tejinder Jacobs MD [Primary Care Provider] -
--- NOTE | 2021-10-01 10:24 | DI.US.S_ITS ---
PROCEDURE: US PERIP VENOUS LOW EXTREM RT INDICATIONS: PAIN, RECENT INJURY, RECENT SURGERY TECHNIQUE: Real-time imaging, as well as color and pulse Doppler interrogation, were performed of the lower extremity deep veins from the inguinal ligament to the popliteal fossa. COMPARISON: [facility], PERIP VENOUS LOW EXTREM RT, 08/20/2021, 9:07. FINDINGS: There are partially occlusive filling defects in the distal superficial femoral vein and popliteal vein consistent with DVT. IMPRESSION: Deep venous thrombosis involving the distal superficial femoral vein and popliteal vein. The preliminary result was given to Dr. Kenyon by paper conservator. Dictated by: Renee Rodriguez M.D. on 10/01/2021 at 10:21 Approved by: Renee Rodriguez M.D. on 10/01/2021 at 10:24
--- NOTE | 2021-10-01 10:24 | DI.RAD.S_ITS ---
PROCEDURE: XR FOOT RT MIN 3V INDICATIONS: severe pain at 1st MTP, no known injury TECHNIQUE: 3 views of the foot were acquired. COMPARISON: None. FINDINGS: Bones: No fractures or dislocations. No suspicious bony lesions. Metatarsus adductus and hallux valgus. There is mild 1st metatarsophalangeal joint degeneration. Osteopenia. Soft tissues: No tibiotalar joint effusion. Achilles tendon appears normal. Soft tissue swelling. IMPRESSION: 1. Hallux valgus and metatarsus adductus. 2. Mild 1st metatarsophalangeal joint degeneration. 4. Osteopenia. Dictated by: Renee Rodriguez M.D. on 10/01/2021 at 9:58 Approved by: Renee Rodriguez M.D. on 10/01/2021 at 10:00
--- NOTE | 2021-10-01 10:25 | DI.RAD.S_ITS ---
PROCEDURE: XR HIP W PEL IF DONE RT 2V INDICATIONS: pain, prior hip surgery TECHNIQUE: AP pelvis with lateral view(s) of the right hip(s). COMPARISON: [facility], CR, XR FEMUR 2+ VIEWS RIGHT, 09/18/2021, 15:21. FINDINGS: Bones: There is a right hip arthroplasty. Subtle lucency along the femoral stem of the hip prosthesis. Note is made of ORIF of distal femoral fracture. No acute fractures or dislocations. Pelvic ring appears intact. No suspicious bony lesions. Soft tissues: The visualized bowel gas pattern is normal. No suspicious soft tissue calcifications. IMPRESSION: 1. Right hip arthroplasty. There is subtle lucency along the femoral stem of the hip prosthesis. If there is clinical concern for prosthesis loosening or infection, a triple phase bone scan is recommended for follow-up. 2. No acute fracture or dislocation. Dictated by: Renee Rodriguez M.D. on 10/01/2021 at 9:56 Approved by: Renee Rodriguez M.D. on 10/01/2021 at 9:58
--- NOTE | 2021-10-01 11:39 | DI.CT.S_ITS ---
PROCEDURE: CT ANGIO CHEST PE PROTOCOL INDICATIONS: tachycardia, recent surgery, new large DVT TECHNIQUE: After the administration of intravenous contrast, 2 mm thick sections acquired from the pulmonary apices to the posterior costophrenic angles. 3-dimensional maximum intensity projection (MIP) coronal and sagittal reformats were then acquired through the thorax. For radiation dose reduction, the following was used: automated exposure control, adjustment of mA and/or kV according to patient size. COMPARISON: [facility], CR, XR CHEST 1V, 08/25/2021, 20:35. FINDINGS: Image quality: Excellent. Pulmonary arteries: Pulmonary arteries are normal in size, and demonstrate no intraluminal filling defects to suggest central pulmonary embolism. Lungs and pleura: There is a calcified granuloma in the left lower lobe. A couple of small inter fissure nodules are seen along the right major fissure. No pleural effusions or pneumothorax. Central and peripheral airways are patent. Mediastinum: Heart size is normal, without pericardial effusion. No mediastinal or hilar adenopathy. Thoracic aorta is normal in caliber and enhancement. Esophagus is normal in caliber, without hiatal hernia. Bones and chest wall: No suspicious bony lesions. Ribs and thoracic spine appear intact throughout. Thyroid gland is normal. There is a 0.5 cm enhancing nodule posterior to the right thyroid lobe. No axillary or supraclavicular adenopathy. Abdomen: Visualized upper abdominal solid organs appear normal in the early arterial phase of enhancement. A 1.4 x 0.9 cm oval-shaped soft nodule behind the stomach and medial to the spleen in the left upper abdomen, probably a splenule. IMPRESSION: 1. No evidence for pulmonary embolism. 2. A calcified granuloma in the left lower lobe. 3. A 0.5 cm enhancing nodule posterior to the right thyroid lobe. This could represent a parathyroid adenoma. Please correlate with parathyroid hormone levels. If clinically indicated, ultrasound would be helpful. Dictated by: Renee Rodriguez M.D. on 10/01/2021 at 11:51 Approved by: Renee Rodriguez M.D. on 10/01/2021 at 12:03
--- NOTE | 2021-10-01 11:40 | PC.NURSE ---
Pt with recent femur surgery for fracture repair 08/25, having pain and mild swelling in r hip and pain in R foot. no thinners. mildly tachycardic 106-114. denies CP SOB. wound intact and healing well.
[2021-10-01 11:47] LABS: Add Manual Diff / Slide Review NO; Basophils Absolute Auto 100 /uL (0-100); Eosinophils Absolute Auto 100 /uL (0-450); Hematocrit 40.7 % (36-46); Lymphocytes Absolute Auto 2100 /uL (1100-4500); Lymphocytes Percent Auto 31.3 % (25-40); Mean Corpuscular HGB Conc 34.3 % (30-36); Mean Corpuscular Hemoglobin 30.3 PG (26-34); Mean Corpuscular Volume 88.3 fL (80-100); Monocytes Absolute Auto 600 /uL (0-900); Monocytes Percent Auto 8.5 % (3-14); Neutrophils Absolute Auto 3900 /uL (1500-7000); Neutrophils Percent Auto 58.2 % (50-75); Platelet Count 286 X10^3/uL (150-400); Red Blood Cell Count 4.61 X10^6/uL (4.0-5.2); Red Cell Distribution Width 13.6 % (11.6-14.8); White Blood Cell Count 6.7 X10^3/uL (4.5-11.0)
[2021-10-01] MEDS: SODIUM CHLORIDE 0.9% 500 ML 1000 ML IV (11:47)
[2021-10-01 12:10] LABS: Alanine Aminotransferase 31 IU/L (<35); Albumin Globulin Ratio 1.4 (1.0-2.8); Alkaline Phosphatase 156 U/L (38-126); Aspartate Aminotransferase 28 IU/L (14-36); BUN Creatinine Ratio 32.8 (6-22); Bilirubin Total 0.7 mg/dL (0.2-1.3); Blood Urea Nitrogen 19 mg/dL (7-17); C-Reactive Protein Quant 0.6 mg/dL (<1.0); Calcium 9.5 mg/dL (8.4-10.2); Carbon Dioxide 29 mmol/L (22-32); Chloride 101 mmol/L (98-107); Estimated Glomerular Filt Rate > 60 mL/min (>60); Globulin 2.8 g/dL (1.7-4.1); Glucose 280 mg/dL (80-110); HEMOLYSIS 26 (0-50); Potassium 3.8 mmol/L (3.4-5.1); Sodium 134 mmol/L (137-145); Total Protein 6.8 g/dL (6.3-8.2); Uric Acid 2.8 mg/dL (2.5-6.2)
[2021-10-01 12:17] LABS: Erythrocyte Sedimentation Rate 15 MM/HR (0-20)
[2021-10-01] MEDS: APIXABAN 5 MG TABLET 10 MG PO (13:39)
== END 2021-10-01 15:44 | disposition home or self-care (01) ==
PROVIDERS: Emergency Provider Emergency Medicine; PCP Internal Medicine
DX: I82.401 Acute embolism and thrombosis of unspecified deep veins of right lower extremity (principal); G89.29 Other chronic pain
CPT/HCPCS: 36415; 71275; 73502; 73630; 80053; 84550; 85025; 85651; 86140; 93971; 99284; Q9967

== ENCOUNTER 2021-10-05 10:00 | Emergency (ER) | payer OTHER, SELFPAY ==
[2021-08-25 23:17] VITALS: BMI 22.6
--- NOTE | 2021-10-05 10:05 | DI.RAD.S_ITS ---
PROCEDURE: XR CHEST 1V INDICATIONS: chest pain TECHNIQUE: One view of the chest was acquired. COMPARISON: [facility], CR, XR CHEST 1V, 08/25/2021, 20:35. FINDINGS: Surgical changes and devices: None. Lungs and pleura: Lungs are clear. No pleural effusions or pneumothorax. Mediastinum: Mediastinal contours appear normal. Heart size is normal. Bones and chest wall: No suspicious bony lesions. Overlying soft tissues appear unremarkable. IMPRESSION: No acute cardiopulmonary pathology. Dictated by: Nazario Claros M.D. on 10/05/2021 at 10:55 Approved by: Nazario Claros M.D. on 10/05/2021 at 10:56
[2021-10-05 10:13] VITALS: PULSE 118; RESP 16; O2SAT 100
--- NOTE | 2021-10-05 10:18 | DI.CT.S_ITS ---
PROCEDURE: CT ANGIO CHEST PE PROTOCOL INDICATIONS: known dvt chest pain TECHNIQUE: After the administration of intravenous contrast, 2 mm thick sections acquired from the pulmonary apices to the posterior costophrenic angles. 3-dimensional maximum intensity projection (MIP) coronal and sagittal reformats were then acquired through the thorax. For radiation dose reduction, the following was used: automated exposure control, adjustment of mA and/or kV according to patient size. COMPARISON: [facility], CT, CT ANGIO CHEST PE PROTOCOL, 10/01/2021, 12:29. FINDINGS: Image quality: Excellent. Pulmonary arteries: Pulmonary arteries are normal in size. Small intraluminal filling defect within subsegmental branches of right lower lobe are seen series 4 image 64, 66 and 67. No filling defect is seen in left pulmonary arteries. Lungs and pleura: There is no acute airspace opacity. Previously noted calcified granuloma in left lower lobe is unchanged series 5, image 115. Previously described small inter fissural nodules in right major fissure are also unchanged series 5, image 142. Mild dependent atelectasis in posterior aspect of bilateral lung rodriguez are seen. No pleural effusions or pneumothorax. Central and peripheral airways are patent. Mediastinum: Heart size is normal, without pericardial effusion. No mediastinal or hilar adenopathy. Thoracic aorta is normal in caliber and enhancement. Esophagus is normal in caliber, without hiatal hernia. Bones and chest wall: No suspicious bony lesions. Ribs and thoracic spine appear intact throughout. Thyroid gland is within normal limits. No axillary or supraclavicular adenopathy. Abdomen: Visualized upper abdominal solid organs appear normal in the early arterial phase of enhancement. There is suggestion of upper pole right renal cyst unchanged from prior study. Previously described possible splenule in left upper quadrant is unchanged. IMPRESSION: 1. Tiny pulmonary emboli within subsegmental branches of right lower lobe pulmonary artery. No left-sided pulmonary embolism. 2. Scattered atelectasis in posterior aspect of bilateral lower lobes. Stable appearing calcified granuloma in left lower lobe and small intra fissural nodule/lymph nodes in right lung. No pleural effusion or pneumothorax. Airway is patent. 3. No thoracic aortic aneurysm or dissection. No mediastinal or hilar lymphadenopathy. Dictated by: Nazario Claros M.D. on 10/05/2021 at 10:56 Approved by: Nazario Claros M.D. on 10/05/2021 at 11:09
[2021-10-05 10:19] LABS: Add Manual Diff / Slide Review NO; Basophils Absolute Auto 100 /uL (0-100); Basophils Percent Auto 0.7 % (0-2); Eosinophils Absolute Auto 100 /uL (0-450); Eosinophils Percent Auto 0.8 % (2-4); Hematocrit 43.6 % (36-46); Lymphocytes Absolute Auto 1900 /uL (1100-4500); Lymphocytes Percent Auto 25.2 % (25-40); Mean Corpuscular HGB Conc 34.3 % (30-36); Mean Corpuscular Hemoglobin 30.2 PG (26-34); Mean Corpuscular Volume 88.2 fL (80-100); Monocytes Absolute Auto 600 /uL (0-900); Monocytes Percent Auto 7.6 % (3-14); Neutrophils Absolute Auto 4900 /uL (1500-7000); Neutrophils Percent Auto 65.7 % (50-75); Platelet Count 335 X10^3/uL (150-400); Red Blood Cell Count 4.95 X10^6/uL (4.0-5.2); Red Cell Distribution Width 13.6 % (11.6-14.8); White Blood Cell Count 7.5 X10^3/uL (4.5-11.0)
[2021-10-05] MEDS: MORPHINE 2 MG/ML INJ IV (10:20)
--- NOTE | 2021-10-05 10:21 | ED_ITS ---
HPI - SOB/Dyspnea General Chief Complaint: Chest Pain Stated Complaint: Funny feeling in chest Time Seen by Provider: 10/05/21 10:05 History of Present Illness HPI Narrative: Patient is a 71-year-old who had a recent right femur fracture after fall down stairs on August 25. She was admitted she had a surgical repair and was discharged on August 29. She was and evaluated here October 01 for increasing pain in her right leg. She was diagnosed with a DVT discharged home on Eliquis. Toene dow she presents with chest discomfort. She said this morning she just was not feeling quite right and felt some chest discomfort. Noted to be tachycardic for EMS and here in the emergency department but not hypoxic. She denies any fever or chills. She continues to have pain in her right leg. She has not missed any doses of Eliquis. She has had history of racing heart in the past, this felt s lightly similar except for the chest discomfort. Related Data Previous Rx's Medication Instructions Recorded acetaminophen 325 mg tablet 975 mg PO TID #10 tab 08/29/21 aspirin 81 mg tablet,delayed 81 mg PO BID #10 tab 08/29/21 release docusate sodium 100 mg capsule 100 mg PO BID #10 cap 08/29/21 insulin glargine 100 unit/mL (3 10 unit (0.1 mL) SUBCUT 2100 #15 ml 08/29/21 mL) subcutaneous pen (Lantus Solostar U-100 Insulin) levothyroxine 25 mcg tablet 25 mcg PO DAILY@0600 #10 tab 08/29/21 (Synthroid) metoprolol tartrate 25 mg tablet 25 mg PO BID #10 tab 08/29/21 oxycodone 5 mg tablet 5 mg PO Q3HR PRN #30 tab 08/29/21 polyethylene glycol 3350 17 gram 17 gm PO DAILY #10 ea 08/29/21 oral powder packet apixaban 5 mg (74 tabs) tablets in See Rx Instructions .ROUTE 10/01/21 a dose pack (Eliquis DVT-PE Treat .COMPLEX #74 ea 30D Start) Allergies Allergy/AdvReac Type Severity Reaction Status Date / Time cephalexin [From Keflex] Allergy Unknown Verified 08/26/21 13:19 naproxen Allergy Unknown Verified 08/26/21 14:15 gabapentin AdvReac Severe Agitated Verified 08/26/21 13:19 Review of Systems Review of Systems Narrative: GENERAL: Denies chills, fatigue, malaise, fever, sweats, travel HEENT: Denies sinus pain, ear pain, sore throat, difficulty swallowing, neck pain RESPIRATORY: See HPI CARDIOVASCULAR: See HPI GASTROINTESTINAL: Denies nausea, vomiting, abdominal pain, diarrhea, constipation, melena. : Denies dysuria, frequency, incontinence, hematuria, urinary retention, flank pain. MUSCULOSKELETAL: Denies weakness, joint pain, or bony pain SKIN: No rash, no erythema, no pruritus NEUROLOGIC: Denies weakness, dizziness, headache, numbness, change in speech, confusion PSYCHIATRIC: No concerning psychosocial issues. 12 point review of systems is negative except for those stated above and HPI Patient History Medical History History of fracture of foot Kidney stones Surgical History History of right hip replacement Hx of section Hx of hysterectomy Hx of tubal ligation Family History Mother Diabetes mellitus Osteoporosis Father Medical history unknown Social History household members: spouse Smoking Status: Never smoker Smoking Status: Never smoker alcohol intake frequency: 0-2 drinks per day Substance Use Type: does not use Exam Initial Vital Signs Initial Vital Signs: Vital Signs Pulse Rate 118 H 10/05/21 10:13 Respiratory Rate 16 10/05/21 10:13 Pulse Oximetry 100 10/05/21 10:13 GENERAL: Alert pleasant 71-year-old female HEENT: Head exam is unremarkable. CARDIOVASCULAR: Rhythm is regular. 1st and 2nd heart sounds normal, no murmur LUNGS: Clear to auscultation, no wheeze, No respiratory distress, no stridor ABDOMINAL: Non-tender to palpation, soft, normal bowel sounds, no masses, no organomegaly and no guarding, no rebound EXTREMITIES: Extremities are non-edematous, neurovascularly intact, cap refill < 2 seconds NEUROVASCULAR:Age approriate, alert, moving all extremities and is active SKIN: No rashes, warm and dry, no petechiae, no vesicles Course Orders Ordered: Discontinued Medications Morphine Sulfate (Morphine 2 Mg/Ml Inj) 2 mg IV NOW ONE Stop: 10/05/21 10:18 Last Admin: 10/05/21 10:20 Dose: 2 mg Documented by: YUSEF Vital Signs Vital signs: Vital Signs - 8 hr 10/05/21 10:23 Temperature 97.9 F Pulse Rate 111 H Respiratory Rate 18 Blood Pressure 128/59 L Pulse Oximetry 98 MDM - SOB/Dyspnea Lab Data Result diagrams: 10/05/21 10:00 10/05/21 10:00 Labs: Lab Results 10/05/21 10/05/21 10/05/21 Range/Units 10:00 10:00 10:00 WBC 7.5 (4.5-11.0) X10^3/uL RBC 4.95 (4.0-5.2) X10^6/uL Hgb 15.0 (12.0-16.0) g/dL Hct 43.6 (36-46) % MCV 88.2 (80-100) fL MCH 30.2 (26-34) PG MCHC 34.3 (30-36) % RDW 13.6 (11.6-14.8) % Plt Count 335 (150-400) X10^3/uL Neut % (Auto) 65.7 (50-75) % Lymph % (Auto) 25.2 (25-40) % [place] % (Auto) 7.6 (3-14) % Eos % (Auto) 0.8 L (2-4) % Baso % (Auto) 0.7 (0-2) % Neut # (Auto) 4900 (4319-0846) /uL Lymph # (Auto) 1900 (3865-6606) /uL [place] # (Auto) 600 (0-900) /uL Eos # (Auto) 100 (0-450) /uL Baso # (Auto) 100 (0-100) /uL PT 14.1 H (10.1-12.7) SECONDS INR 1.3 (0.9-1.3) APTT 36 (26.4-36.2) SECONDS Sodium 137 (137-145) mmol/L Potassium 3.7 (3.4-5.1) mmol/L Chloride 100 (98-107) mmol/L Carbon Dioxide 29 (22-32) mmol/L BUN 19 H (7-17) mg/dL Creatinine 0.65 (0.52-1.04) mg/dL Estimated GFR > 60 (>60) mL/min BUN/Creatinine Ratio 29.2 H (6-22) Glucose 201 H (80-110) mg/dL Calcium 9.9 (8.4-10.2) mg/dL Total Bilirubin 0.8 (0.2-1.3) mg/dL AST 28 (14-36) IU/L ALT 31 (<35) IU/L Alkaline Phosphatase 170 H (38-126) U/L Total Creatine Kinase 40 (30-135) U/L CK-MB (CK-2) TNP CK-MB (CK-2) Rel Index TNP Troponin I < 0.012 (0.01-0.034) ng/mL NT-Pro-B Natriuret Pep 74 (<125) pg/mL Total Protein 7.5 (6.3-8.2) g/dL Albumin 4.4 (3.5-5.0) g/dL Globulin 3.1 (1.7-4.1) g/dL Albumin/Globulin Ratio 1.4 (1.0-2.8) Lipase 93 (23-300) U/L Imaging Data Chest x-ray: Radiologist's Impression: XRay Report Signed Patient: Maria T Vang MR#: [id number] : 1950 Acct:[id number] Age/Sex: 71 / F Date of Service: 10/05/21 Loc: ED Accession Number: [id number] ?? Procedure: XR chest 1V Ordering Provider: Tracy Sharpe D.O. PROCEDURE:? XR CHEST 1V ? INDICATIONS:? chest pain ? TECHNIQUE:? One view of the chest was acquired.? ? COMPARISON:? [facility], , XR CHEST 1V, 08/25/2021, 20:35. ? FINDINGS:? ? Surgical changes and devices:? None.? ? Lungs and pleura:? Lungs are clear.? No pleural effusions or pneumothorax.? ? Mediastinum:? Mediastinal contours appear normal.? Heart size is normal.? ? Bones and chest wall:? No suspicious bony lesions.? Overlying soft tissues appear unremarkable.? ? IMPRESSION:? No acute cardiopulmonary pathology. ? ? Dictated by: Nazario Claros M.D. on 10/05/2021 at 10:55 ? ? CT scan - abdomen/pelvis: Radiologist's Impression: CT Scan Report Signed Patient: Maria T Vang MR#: [id number] : 1950 Acct:[id number] Age/Sex: 71 / F Date of Service: 10/05/21 Loc: ED Accession Number: [id number] ?? Procedure: CT angio chest PE protocol Ordering Provider: Tracy Sharpe D.O. PROCEDURE:? CT ANGIO CHEST PE PROTOCOL ? INDICATIONS:? known dvt chest pain ? TECHNIQUE:? After the administration of intravenous contrast, 2 mm thick sections acquired from the pulmonary apices to the posterior costophrenic angles.? 3-dimensional maximum intensity projection (MIP) coronal and sagittal reformats were then acquired through the thorax.? For radiation dose reduction, the following was used:? automated exposure control, adjustment of mA and/or kV according to patient size.? ? COMPARISON:? [facility], CT, CT ANGIO CHEST PE PROTOCOL, 10/01/2021, 12:29. ? FINDINGS:? Image quality:? Excellent.? ? Pulmonary arteries:? Pulmonary arteries are normal in size.? Small intraluminal filling defect within subsegmental branches of right lower lobe are seen series 4 image 64, 66 and 67.? No filling defect is seen in left pulmonary arteries. ? Lungs and pleura:? There is no acute airspace opacity.? Previously noted calcified granuloma in left lower lobe is unchanged series 5, image 115.? Previously described small inter fissural nodules in right major fissure are also unchanged series 5, image 142.? Mild dependent atelectasis in posterior aspect of bilateral lung rodriguez are seen.? No pleural effusions or pneumothorax.? Central and peripheral airways are patent.? ? Mediastinum:? Heart size is normal, without pericardial effusion.? No mediastinal or hilar adenopathy.? Thoracic aorta is normal in caliber and enhancement.? Eso phagus is normal in caliber, without hiatal hernia.? ? Bones and chest wall:? No suspicious bony lesions.? Ribs and thoracic spine appear intact throughout.? Thyroid gland is within normal limits.? No axillary or supraclavicular adenopathy.? ? Abdomen:? Visualized upper abdominal solid organs appear normal in the early arterial phase of enhancement.? There is suggestion of upper pole right renal cyst unchanged from prior study.? Previously described possible splenule in left upper quadrant is unchanged. ? IMPRESSION:? 1. Tiny pulmonary emboli within subsegmental branches of right lower lobe pu lmonary artery.? No left-sided pulmonary embolism.? 2. Scattered atelectasis in posterior aspect of bilateral lower lobes.? Stable appearing calcified granuloma in left lower lobe and small intra fissural nodule/lymph nodes in right lung.? No pleural effusion or pneumothorax.? Airway is patent. 3. No thoracic aortic aneurysm or dissection.? No mediastinal or hilar lymphadenopathy.? ? Dictated by: Nazario Claros M.D. on 10/05/2021 at 10:56 ? ? Approved by: Nazario Claros M.D. on 10/05/2021 at 11:09 ? ECG Data Interpretation: Sinus rhythm rate 120 p.r. interval 130 QRS [address] changes no T-wave inversion MDM Narrative Medical decision making narrative: Patient has a known DVT on Eliquis for the last 4 days. Today she felt some chest discomfort and was tachycardic. Concern for pulmonary embolism. CT does confirm a very small right lower lobe pulmonary embolism. Radiology states that it was present 4 days ago. Patient has no sign of right heart strain she is not hypoxic. Brief discussion with the hospitalist on the to change anticoagulation at this time, possible PE was present and just not seen on CT. Recommend continuing Eliquis. And follow outpatient. Patient is feeling better after morphine as well. Discharge Plan Departure Patient Disposition: Home Clinical Impression: Pulmonary embolism Instructions: DI for Pulmonary Embolism Activity Restrictions/Additional Instructions: *You have been diagnosed with pulmonary embolism *What to do: At this time no need to change any medication. You will continue to have some leg pain and some mild chest pain. You may experience some shortness of breath. However please monitor closely if your breathing is getting significantly worse or your pain is getting significantly worse he needs return to the emergency department immediately. *Continue to take medications as directed Continue pain medication at home Continue Eliquis at home *Follow up with your primary care provider in 2-3 days or call [phone] *Return to ER if you should have in increasing chest pain, shortness of breath, pain or any new, worsening or concerning symptoms Prescriptions: No Action Eliquis DVT-PE Treat 30D Start 5 mg (74 tabs) tablets,dose pack See Rx Instructions .ROUTE .COMPLEX Qty: 74 0RF Rx Instructions: orally per package directions acetaminophen 325 mg Tablet 975 mg PO TID Qty: 10 0RF polyethylene glycol 3350 17 gram Powder In Packet 17 gm PO DAILY Qty: 10 0RF aspirin 81 mg Tablet,Delayed Release (Dr/Ec) 81 mg PO BID Qty: 10 0RF levothyroxine [Synthroid] 25 mcg Tablet 25 mcg PO DAILY@0600 Qty: 10 0RF docusate sodium 100 mg Capsule 100 mg PO BID Qty: 10 0RF oxycodone 5 mg Tablet 5 mg PO Q3HR PRN (Reason: Pain, Moderate (4-6)) Qty: 30 0RF metoprolol tartrate 25 mg Tablet 25 mg PO BID Qty: 10 0RF Lantus Solostar U-100 Insulin 100 unit/mL (3 mL) Insulin Pen 10 unit SUBCUT 2100 Qty: 15 0RF Referrals: Tejinder Jacobs MD [Primary Care Provider] -
[2021-10-05 10:23] VITALS: BP 128/59; PULSE 111; RESP 18; TEMP 36.6; O2SAT 98
[2021-10-05 10:26] LABS: INR 1.3 (0.9-1.3); Prothrombin Time 14.1 SECONDS (10.1-12.7)
[2021-10-05 10:28] LABS: PTT Partial Thromboplastin Tim 36 SECONDS (26.4-36.2)
[2021-10-05 10:31] LABS: Alanine Aminotransferase 31 IU/L (<35); Albumin 4.4 g/dL (3.5-5.0); Albumin Globulin Ratio 1.4 (1.0-2.8); Alkaline Phosphatase 170 U/L (38-126); Aspartate Aminotransferase 28 IU/L (14-36); BUN Creatinine Ratio 29.2 (6-22); Bilirubin Total 0.8 mg/dL (0.2-1.3); Blood Urea Nitrogen 19 mg/dL (7-17); Calcium 9.9 mg/dL (8.4-10.2); Carbon Dioxide 29 mmol/L (22-32); Chloride 100 mmol/L (98-107); Creatine Kinase 40 U/L (30-135); Estimated Glomerular Filt Rate > 60 mL/min (>60); Globulin 3.1 g/dL (1.7-4.1); Glucose 201 mg/dL (80-110); HEMOLYSIS < 15 (0-50); Lipase 93 U/L (23-300); Potassium 3.7 mmol/L (3.4-5.1); Sodium 137 mmol/L (137-145); Total Protein 7.5 g/dL (6.3-8.2)
[2021-10-05 10:39] VITALS: BP 144/68; PULSE 105; RESP 15; O2SAT 100
[2021-10-05 10:42] LABS: NT-proBNP (BNP-Adult 18+) 74 pg/mL (<125); Troponin I < 0.012 ng/mL (0.01-0.034)
[2021-10-05 11:00] VITALS: BP 143/68; PULSE 102; RESP 20; O2SAT 100
[2021-10-05 11:30] VITALS: BP 132/63; PULSE 96; RESP 14; O2SAT 100
[2021-10-05 12:00] VITALS: BP 163/70; PULSE 97; RESP 12; O2SAT 99
== END 2021-10-05 12:34 | disposition home or self-care (01) ==
PROVIDERS: Emergency Provider Emergency Medicine; PCP Internal Medicine
DX: I26.99 Other pulmonary embolism without acute cor pulmonale (principal); R00.0 Tachycardia, unspecified; Z79.01 Long term (current) use of anticoagulants
CPT/HCPCS: 36415; 71045; 71275; 80053; 82550; 83690; 83880; 84484; 85025; 85610; 85730; 93005; 96374; 99284; J2270

== ENCOUNTER 2021-10-06 16:06 | Emergency (ER) | payer OTHER, SELFPAY ==
[2021-08-25 23:17] VITALS: BMI 22.6
[2021-10-06 16:17] VITALS: BP 127/70; PULSE 124; RESP 20; TEMP 36.6; O2SAT 98; BMI 22.4
[2021-10-06 16:29] VITALS: PULSE 124; RESP 19
[2021-10-06 16:30] VITALS: PULSE 129; RESP 18; O2SAT 96
[2021-10-06 16:31] VITALS: BP 143/87; PULSE 126; RESP 19; O2SAT 100
--- NOTE | 2021-10-06 16:33 | ED_ITS ---
HPI - Allergic Reaction General Chief complaint: Allergic Reaction Stated complaint: Reaction to medication, tongue swelling Time Seen by Provider: 10/06/21 16:27 Source: patient Mode of arrival: Ambulatory History of Present Illness HPI narrative: Patient is a 71-year-old female. Recently started on a new diabetes medication by her primary doctor. She took the 3rd dose of at earlier today. She states that afterwards she started feel like she was having a reaction to a medicine to include swelling of the tongue and feel like her throat was closing. She still tolerating her secretions. No rashes although she states she does have a sore on the end of her tongue. No nausea vomiting. Has not tried anything for the symptoms prior to arrival. Related Data Previous Rx's Medication Instructions Recorded acetaminophen 325 mg tablet 975 mg PO TID #10 tab 08/29/21 aspirin 81 mg tablet,delayed 81 mg PO BID #10 tab 08/29/21 release docusate sodium 100 mg capsule 100 mg PO BID #10 cap 08/29/21 insulin glargine 100 unit/mL (3 10 unit (0.1 mL) SUBCUT 2100 #15 ml 08/29/21 mL) subcutaneous pen (Lantus Solostar U-100 Insulin) levothyroxine 25 mcg tablet 25 mcg PO DAILY@0600 #10 tab 08/29/21 (Synthroid) metoprolol tartrate 25 mg tablet 25 mg PO BID #10 tab 08/29/21 oxycodone 5 mg tablet 5 mg PO Q3HR PRN #30 tab 08/29/21 polyethylene glycol 3350 17 gram 17 gm PO DAILY #10 ea 08/29/21 oral powder packet apixaban 5 mg (74 tabs) tablets in See Rx Instructions .ROUTE 10/01/21 a dose pack (Eliquis DVT-PE Treat .COMPLEX #74 ea 30D Start) Allergies Allergy/AdvReac Type Severity Reaction Status Date / Time cephalexin [From Keflex] Allergy Unknown Verified 10/06/21 16:17 naproxen Allergy Unknown Verified 10/06/21 16:17 gabapentin AdvReac Severe Agitated Verified 10/06/21 16:17 Review of Systems Constitutional Constitutional: Denies fever(s) ENT Ears, Nose, Mouth, and Throat: Reports system reviewed and no additional complaints, except as documented and Reports as per HPI Cardiovascular Cardiovascular: Reports system reviewed and no additional complaints, except as documented Respiratory Respiratory: Reports system reviewed and no additional complaints, except as documented Gastrointestinal Gastrointestinal: Reports as per HPI and Reports system reviewed and no additional complaints, except as documented Integumentary/Breasts Skin/Breast: Reports system reviewed and no additional complaints, except as documented Neurologic Neurologic: Reports system reviewed and no additional complaints, except as do cumented Hematologic/Lymphatic On Anticoagulants: Yes Allergic/Immunologic Allergic/Immunologic: Reports system reviewed and no additional complaints, except as documented Patient History Medical History History of fracture of foot Kidney stones Surgical History History of right hip replacement Hx of section Hx of hysterectomy Hx of tubal ligation Family History Mother Diabetes mellitus Osteoporosis Father Medical history unknown Social History household members: spouse Smoking Status: Never smoker Smoking Status: Never smoker alcohol intake frequency: 0-2 drinks per day Substance Use Type: does not use Exam Initial Vital Signs Initial Vital Signs: Vital Signs Temperature 97.8 F 10/06/21 16:17 Pulse Rate 124 H 10/06/21 16:17 Respiratory Rate 20 10/06/21 16:17 Blood Pressure 127/70 10/06/21 16:17 Pulse Oximetry 98 10/06/21 16:17 Const General: cooperative, comfortable and well developed Nutritional Appearance: average body habitus HENMT Head: normal to inspection Nose: external nose normal Mouth: oral mucosae normal, lip normal, oropharynx normal and moist mucous membranes Other HENMT:: Small lesion on the tip of tongue. Not urticaria. Not bleeding. Resp Effort & Inspection: normal respiratory effort Auscultation: clear to auscultation bilaterally Cardio Rate: regular rate Rhythm: regular rhythm Skin General: no rashes or lesions noted Neuro General: patient alert, patient awake and moves all extremities Extrem General: normal to inspection and capillary refill normal Psych Appearance: grossly normal and well kempt Course Orders Ordered: Discontinued Medications Diphenhydramine HCl (Diphenhydramine 50 Mg/Ml Vial) 25 mg IV NOW ONE Stop: 10/06/21 16:35 Last Admin: 10/06/21 16:40 Dose: 25 mg Documented by: DOMINIQUE Sodium Chloride (Normal Saline 0.9%) 1,000 mls @ 125 mls/hr IV CONT ALLEY Last Infusion: 10/06/21 18:03 Dose: 0 mls/hr Documented by: Admin: 10/06/21 16:40 Dose: 125 mls/hr Documented by: DOMINIQUE Methylprednisolone (Methylprednisolone 125 Mg/2 Ml Vial) 125 mg IV NOW ONE Stop: 10/06/21 16:35 Last Admin: 10/06/21 16:40 Dose: 125 mg Documented by: DOMINIQUE Vital Signs Vital signs: Vital Signs - 8 hr 10/06/21 16:17 10/06/21 16:29 10/06/21 16:30 Temperature 97.8 F Pulse Rate 124 H 124 H 129 H Respiratory Rate 20 19 18 Blood Pressure 127/70 Pulse Oximetry 98 96 10/06/21 16:31 10/06/21 17:00 10/06/21 17:30 Temperature Pulse Rate 126 H 104 H 101 H Respiratory Rate 19 16 19 Blood Pressure 143/87 H 160/76 H 159/89 H Pulse Oximetry 100 100 100 MDM - Allergic Reaction MDM Narrative Medical decision making narrative: Patient does have a small lesion on the end of her tongue. Unsure the exact etiology but it is not bleeding. Not vesicular. Not pustular. Not consistent with urticaria. The rest of her oropharynx is unremarkable. Her tongue is not objectively enlarged. Was given Solu-Medrol and Benadryl and observed she states she feels much better. Informed her that she should stop taking the new medication and talk with her primary doctor about potentially changing it. Discharge home. She was given return precautions. She expressed understanding and agreement. Discharge Plan Departure Patient Disposition: Home Clinical Impression: Allergic reaction Instructions: DI for Adverse Drug Reaction -- Allergic Activity Restrictions/Additional Instructions: I recommend you stop taking the new medication like we discussed. Contact your primary doctor for follow-up. Return to the emergency department for any new or worsening symptoms. Prescriptions: No Action Eliquis DVT-PE Treat 30D Start 5 mg (74 tabs) tablets,dose pack See Rx Instructions .ROUTE .COMPLEX Qty: 74 0RF Rx Instructions: orally per package directions acetaminophen 325 mg Tablet 975 mg PO TID Qty: 10 0RF polyethylene glycol 3350 17 gram Powder In Packet 17 gm PO DAILY Qty: 10 0RF aspirin 81 mg Tablet,Delayed Release (Dr/Ec) 81 mg PO BID Qty: 10 0RF levothyroxine [Synthroid] 25 mcg Tablet 25 mcg PO DAILY@0600 Qty: 10 0RF docusate sodium 100 mg Capsule 100 mg PO BID Qty: 10 0RF oxycodone 5 mg Tablet 5 mg PO Q3HR PRN (Reason: Pain, Moderate (4-6)) Qty: 30 0RF metoprolol tartrate 25 mg Tablet 25 mg PO BID Qty: 10 0RF Lantus Solostar U-100 Insulin 100 unit/mL (3 mL) Insulin Pen 10 unit SUBCUT 2100 Qty: 15 0RF Referrals: Tejinder Jacobs MD [Primary Care Provider] -
[2021-10-06] MEDS: diphenhydrAMINE 50 MG/ML VIAL 25 MG IV (16:40)
[2021-10-06] MEDS: SODIUM CHLORIDE 0.9% 1,000 ML 125 ML IV (16:40)
[2021-10-06] MEDS: methylPREDNISolone 125 MG/2 ML VIAL IV (16:40)
[2021-10-06 17:00] VITALS: BP 160/76; PULSE 104; RESP 16; O2SAT 100
[2021-10-06 17:30] VITALS: BP 159/89; PULSE 101; RESP 19; O2SAT 100
== END 2021-10-06 18:10 | disposition home or self-care (01) ==
PROVIDERS: Emergency Provider Emergency Medicine; PCP Internal Medicine
DX: T78.40XA Allergy, unspecified, initial encounter (principal); L50.9 Urticaria, unspecified
CPT/HCPCS: 36415; 96374; 96375; 99284; J1200; J2930

== ENCOUNTER → 2021-10-31 09:32 | Outpatient (CLI) | payer OTHER, SELFPAY ==
[2021-08-25 23:17] VITALS: BMI 22.6
--- NOTE | 2021-10-31 09:33 | DI.CT.S_ITS ---
PROCEDURE: CT ABDOMEN W CON INDICATIONS: Type 2 diabetes mellitus with hyperglycemia TECHNIQUE: After the administration of intravenous contrast, axial sections were acquired from the lung bases to the pubic symphysis. Coronal and sagittal reformats were performed. For radiation dose reduction, the following was used: automated exposure control, adjustment of mA and/or kV according to patient size. COMPARISON:[facility], CT, CT KIDNEY URETER BLADDER (KUB), 06/22/2018, 22:49. FINDINGS: Image quality: Excellent. Lung bases: Unremarkable. Heart: No significant findings. ABDOMEN: Liver: Unremarkable. Gallbladder: Is within normal limits Biliary ducts: Unremarkable. Pancreas: Unremarkable. Spleen: Unremarkable. Adrenal Glands: Unremarkable. Kidneys and Ureters: Scarring within the bilateral interpolar and inferior pole kidneys. Multiple small nonobstructing calcifications within the right superior pole, interpolar, and inferior pole kidney are present measuring less than 5 mm diameter. Multiple nonobstructing calculi within the left interpolar, superior pole, and inferior pole kidney are present, largest of which is in the inferior pole measuring roughly 7 mm diameter. No hydronephrosis. Stomach and Bowel: Stomach, small bowel loops, and colon are unremarkable. Is within normal limits Peritoneum: No abnormal intraperitoneal fluid. No free air. Ventral Wall: No hernia. Abdominal Nodes: No retroperitoneal or mesenteric adenopathy by size criteria. Vessels: Aorta and inferior vena cava are normal in size. PELVIS: Pelvic Organs: Unremarkable. Bladder: Unremarkable. Pelvic Nodes: No enlarged lymph nodes. Miscellaneous: No inguinal hernias are seen. Bones: Unremarkable. IMPRESSION: 1. No acute process. 2. Nonobstructing bilateral renal calculi. 3. Bilateral renal scarring. Dictated by: Alessandro Pandey M.D. on 10/31/2021 at 11:07 Approved by: Alessandro Pandey M.D. on 10/31/2021 at 11:09
== END ==
PROVIDERS: PCP Internal Medicine; Referring Provider Internal Medicine; Visit Provider Internal Medicine
DX: E11.65 Type 2 diabetes mellitus with hyperglycemia (principal); N20.0 Calculus of kidney
CPT/HCPCS: 74160; Q9967

== ENCOUNTER 2022-02-17 19:37 | Emergency (ER) | payer OTHER, SELFPAY ==
[2021-08-25 23:17] VITALS: BMI 22.6
[2022-02-17] VITALS (8 sets, daily range): BP systolic 145–146; BP diastolic 69–77; PULSE 64–120; RESP 18; TEMP 36.4; O2SAT 95–100; BMI 18.1
[2022-02-17 20:45] LABS: Add Manual Diff / Slide Review NO; Basophils Absolute Auto 100 /uL (0-100); Eosinophils Absolute Auto 100 /uL (0-450); Hematocrit 43.8 % (36-46); Hemoglobin 14.9 g/dL (12.0-16.0); Lymphocytes Absolute Auto 2800 /uL (1100-4500); Lymphocytes Percent Auto 30.1 % (25-40); Mean Corpuscular HGB Conc 33.9 % (30-36); Mean Corpuscular Hemoglobin 29.5 PG (26-34); Mean Corpuscular Volume 86.9 fL (80-100); Monocytes Absolute Auto 600 /uL (0-900); Monocytes Percent Auto 6.2 % (3-14); Neutrophils Absolute Auto 5700 /uL (1500-7000); Neutrophils Percent Auto 61.7 % (50-75); Platelet Count 327 X10^3/uL (150-400); Red Blood Cell Count 5.04 X10^6/uL (4.0-5.2); Red Cell Distribution Width 13.9 % (11.6-14.8); White Blood Cell Count 9.2 X10^3/uL (4.5-11.0)
[2022-02-17 20:50] LABS: Prothrombin Time 11.1 SECONDS (10.1-12.7)
[2022-02-17] MEDS: ONDANSETRON 4 MG/2 ML INJ IV (20:50)
--- NOTE | 2022-02-17 20:52 | DI.CT.S_ITS ---
PROCEDURE: CT KIDNEY URETER BLADDER (KUB) INDICATIONS: hx kidney stones. TECHNIQUE: Axial sections were acquired from the lung bases to the pubic symphysis. Coronal and sagittal reformats were performed. For radiation dose reduction, the following was used: automated exposure control, adjustment of mA and/or kV according to patient size. COMPARISON: [facility], CT, CT KIDNEY URETER BLADDER (KUB), 06/22/2018, 22:49. FINDINGS: Image quality: Excellent. Lung bases: Unremarkable. Heart: No significant findings. URINARY: Right Kidney: Multiple nonobstructive calculi are again seen at the collecting system of right kidney. These generally are small in size, subcentimeter. Right Ureter: No hydroureter. Note is made of a very small calculus within a presumed retroperitoneal vein that was previously present also in May of 2018, currently seen on series 2, image 45. Left Kidney: Multiple nonobstructive left-sided renal calculi are again seen many of which have mildly increased in size and have maximal dimension of 8 mm, mid left kidney, best seen on series 2, image 20 with a radiodensity in the 675-725 Hounsfield unit range. There also is new moderate left-sided hydronephrosis. Left Ureter: New moderate left-sided hydroureter, which extends through the retroperitoneum into the pelvis where a 4 mm impacted calculus can be seen measuring 678 Hounsfield units on series 2, image 62. This is only approximately 3 cm above the bladder margin. Scattered pelvic phleboliths are also present in that general area. Bladder: Normal wall thickness. No stones. ABDOMEN: Liver: Unremarkable. Gallbladder: Unremarkable. Biliary ducts: Unremarkable. Pancreas: Unremarkable. Spleen: Unremarkable. Adrenal Glands: Unremarkable. Stomach and Bowel: Stomach, small bowel loops, and colon are unremarkable. Peritoneum: No abnormal intraperitoneal fluid. No free air. Ventral Wall: No hernia. Abdominal Nodes: No enlarged retroperitoneal or mesenteric lymph nodes. Vessels: Aorta and inferior vena cava are normal in size. PELVIS: Pelvic Organs: Unremarkable. Pelvic Nodes: Unremarkable. Miscellaneous: No inguinal hernias are seen. Bones: Unremarkable. IMPRESSION: 4 mm distal ureteral stone on the left causing moderate hydronephrosis and left-sided hydroureter. Bilateral renal collecting system calculi none of which appear to be focally obstructive. The calculi on the left have increased in number and size, sub cm, and similar in radiodensity to the calculus found within the distal left ureter. Resolution of right-sided hydronephrosis previously present. Dictated by: Fran Yates M.D. on 02/17/2022 at 21:37 Approved by: Fran Yates M.D. on 02/17/2022 at 21:44
[2022-02-17 20:53] LABS: PTT Partial Thromboplastin Tim 22 SECONDS (26-36)
[2022-02-17 20:54] LABS: Alanine Aminotransferase 23 IU/L (<35); Albumin 4.4 g/dL (3.5-5.0); Albumin Globulin Ratio 1.3 (1.0-2.8); Alkaline Phosphatase 75 U/L (38-126); Aspartate Aminotransferase 38 IU/L (14-36); Bilirubin Total 0.7 mg/dL (0.2-1.3); Blood Urea Nitrogen 25 mg/dL (7-17); Calcium 9.7 mg/dL (8.4-10.2); Carbon Dioxide 27 mmol/L (22-32); Chloride 101 mmol/L (98-107); Estimated Glomerular Filt Rate 57 mL/min (>60); Globulin 3.5 g/dL (1.7-4.1); Glucose 166 mg/dL (80-110); Lipase 128 U/L (23-300); Sodium 137 mmol/L (137-145); Total Protein 7.9 g/dL (6.3-8.2)
[2022-02-17 20:55] LABS: HEMOLYSIS 131 (0-50)
[2022-02-17 20:56] LABS: Potassium 4.8 mmol/L (3.4-5.1)
[2022-02-17] MEDS: TAMSULOSIN 0.4 MG CAPSULE PO (23:37)
[2022-02-17] MEDS: MORPHINE 2 MG/ML INJ IV (23:37)
[2022-02-18] VITALS: PULSE 107; O2SAT 96
[2022-02-18 00:30] VITALS: PULSE 112; O2SAT 98
--- NOTE | 2022-02-18 01:20 | ED.ABDPAIN ---
HPI - Abdominal Pain General Chief Complaint: Abdominal Pain Stated Complaint: per pt kidney stones Time Seen by Provider: 02/17/22 20:52 Source: patient and family Mode of arrival: Wheelchair Limitations: no limitations History of Present Illness HPI narrative: This is a 70-year-old female with history of blood clots on Eliquis, diabetes, dyslipidemia, hypothyroidism and prior right femur fracture on narcotics daily. Patient states she has had increasing left flank pain starting yesterday that feels like a kidney stone she denies fevers or chills. She is had some nausea but no vomiting. She denies any black or bloody stool she is had some constipation but has been stooling. She denies dysuria, urgency or frequency but did have a little bit of hematuria earlier today. She saw a urologist in [place] in the past but has not had any recent interventions. Patient has been taking oxycodone with Tylenol 4-5 times daily for chronic pain secondary to her prior right femur fracture. She is no longer on Flomax. She is accompanied by her today. Related Data Previous Rx's Medication Instructions Recorded acetaminophen 325 mg tablet 975 mg PO TID #10 tabs 08/29/21 aspirin 81 mg tablet,delayed 81 mg PO BID #10 tabs 08/29/21 release docusate sodium 100 mg capsule 100 mg PO BID #10 caps 08/29/21 insulin glargine 100 unit/mL (3 10 unit (0.1 mL) SUBCUT 2100 #15 mL 08/29/21 mL) subcutaneous pen (Lantus Solostar U-100 Insulin) levothyroxine 25 mcg tablet 25 mcg PO DAILY@0600 #10 tabs 08/29/21 (Synthroid) metoprolol tartrate 25 mg tablet 25 mg PO BID #10 tabs 08/29/21 oxycodone 5 mg tablet 5 mg PO Q3HR PRN Pain, Moderate 08/29/21 (4-6) #30 tabs polyethylene glycol 3350 17 gram 17 gm PO DAILY #10 ea 08/29/21 oral powder packet apixaban 5 mg (74 tabs) tablets in See Rx Instructions PO .COMPLEX 10/01/21 a dose pack (Eliquis DVT-PE Treat #74 ea 30D Start) oxycodone 5 mg tablet 5 mg PO Q6H PRN pain #14 tabs 02/18/22 tamsulosin 0.4 mg capsule (Flomax) 0.4 mg PO DAILY #10 caps 02/18/22 Allergies Allergy/AdvReac Type Severity Reaction Status Date / Time cephalexin [From Keflex] Allergy Unknown Verified 02/17/22 20:03 naproxen Allergy Unknown Verified 02/17/22 20:03 gabapentin AdvReac Severe Agitated Verified 02/17/22 20:03 Review of Systems Review of Systems ROS Unobtainable: All systems reviewed & are unremarkable except as noted in HPI and below Patient History Medical History History of fracture of foot Kidney stones Surgical History History of right hip replacement Hx of section Hx of hysterectomy Hx of tubal ligation Family History Mother Diabetes mellitus Osteoporosis Father Medical history unknown Social History household members: spouse Smoking Status: Never smoker Smoking Status: Never smoker alcohol intake frequency: 0-2 drinks per day Substance Use Type: does not use Exam Narrative Exam Narrative: GENERAL: Alert and oriented x three, elderly female in mild to moderate distress. HEENT: Head normocephalic, atraumatic, EOMI, pupils reactive, face symmetric, moist mucous membranes NECK: Supple, full range of motion CARDIOVASCULAR: Regular rate and rhythm without murmurs, rubs or gallops. RESPIRATORY: Breath sounds equal bilaterally, no wheezes rales or rhonchi. ABDOMEN: Soft, nontender. Normoactive bowel sounds all 4 quadrants. No guarding or rebound, rigidity, no mass : No CVA tenderness EXTREMITIES: Normal range of motion, no clubbing or edema. Neurovascularly intact NEUROLOGICAL: Cranial nerves II through XII grossly intact. Moving all extremities SKIN: Warm, dry, no petechiae, no rashes or lesions. Initial Vital Signs Initial Vital Signs: Vital Signs Temperature 97.5 F L 02/17/22 20:03 Pulse Rate 64 02/17/22 20:03 Respiratory Rate 18 02/17/22 20:03 Blood Pressure 146/69 H 02/17/22 20:03 Pulse Oximetry 96 02/17/22 20:03 Oxygen Delivery Method 02/17/22 20:03 Course Orders Ordered: ED Orders 02/17/22 20:52 CT kidney ureter bladder (KUB) Stat 02/18/22 00:40 Urine Microscopic Stat Discontinued Medications Morphine Sulfate (Morphine 2 Mg/Ml Inj) 2 mg IV NOW ONE Stop: 02/17/22 23:30 Last Admin: 02/17/22 23:37 Dose: 2 mg Documented By: BRIELLE Morphine Sulfate (Morphine 2 Mg/Ml Inj) 2 mg IV NOW ONE Stop: 02/18/22 01:36 Last Admin: 02/18/22 01:45 Dose: 2 mg Documented By: JOSETTE Ondansetron HCl (Ondansetron 4 Mg/2 Ml Inj) 4 mg IV NOW ONE Stop: 02/17/22 20:10 Last Admin: 02/17/22 20:50 Dose: 4 mg Documented By: BRIELLE Tamsulosin HCl (Tamsulosin 0.4 Mg Capsule) 0.4 mg PO NOW ONE Stop: 02/17/22 23:29 Last Admin: 02/17/22 23:37 Dose: 0.4 mg Documented By: BRIELLE Vital Signs Vital signs: Vital Signs - 8 hr 02/17/22 22:00 02/17/22 22:30 02/17/22 23:00 Pulse Rate 107 H 117 H 120 H Blood Pressure Pulse Oximetry 98 100 100 02/17/22 23:30 02/18/22 00:00 02/18/22 00:30 Pulse Rate 117 H 107 H 112 H Blood Pressure Pulse Oximetry 100 96 98 02/18/22 01:49 Pulse Rate 102 H Blood Pressure 158/75 H Pulse Oximetry 99 MDM - Abdominal Pain Lab Data Result diagrams: 02/17/22 20:15 02/17/22 20:15 Labs: Lab Results 02/17/22 02/17/22 02/17/22 Range/Units 20:15 20:15 20:15 WBC 9.2 (4.5-11.0) X10^3/uL RBC 5.04 (4.0-5.2) X10^6/uL Hgb 14.9 (12.0-16.0) g/dL Hct 43.8 (36-46) % MCV 86.9 (80-100) fL MCH 29.5 (26-34) PG MCHC 33.9 (30-36) % RDW 13.9 (11.6-14.8) % Plt Count 327 (150-400) X10^3/uL Neut % (Auto) 61.7 (50-75) % Lymph % (Auto) 30.1 (25-40) % Saunders % (Auto) 6.2 (3-14) % Eos % (Auto) 1.0 L (2-4) % Baso % (Auto) 1.0 (0-2) % Neut # (Auto) 5700 (2632-1618) /uL Lymph # (Auto) 2800 (8145-2448) /uL Saunders # (Auto) 600 (0-900) /uL Eos # (Auto) 100 (0-450) /uL Baso # (Auto) 100 (0-100) /uL PT 11.1 (10.1-12.7) SECONDS INR 1.0 (0.9-1.3) APTT 22 L (26-36) SECONDS Sodium 137 (137-145) mmol/L Potassium 4.8 (3.4-5.1) mmol/L Chloride 101 (98-107) mmol/L Carbon Dioxide 27 (22-32) mmol/L BUN 25 H (7-17) mg/dL Creatinine 1.04 (0.52-1.04) mg/dL Estimated GFR 57 L (>60) mL/min BUN/Creatinine Ratio 24.0 H (6-22) Glucose 166 H (80-110) mg/dL Calcium 9.7 (8.4-10.2) mg/dL Total Bilirubin 0.7 (0.2-1.3) mg/dL AST 38 H (14-36) IU/L ALT 23 (<35) IU/L Alkaline Phosphatase 75 (38-126) U/L Total Protein 7.9 (6.3-8.2) g/dL Albumin 4.4 (3.5-5.0) g/dL Globulin 3.5 (1.7-4.1) g/dL Albumin/Globulin Ratio 1.3 (1.0-2.8) Lipase 128 (23-300) U/L Urine RBC (0-5/HPF) Urine WBC (0-5/HPF) Calcium Oxalate Crystal Urine Bacteria (None) Ur Culture Indicated? 02/18/22 Range/Units 00:40 WBC (4.5-11.0) X10^3/uL RBC (4.0-5.2) X10^6/uL Hgb (12.0-16.0) g/dL Hct (36-46) % MCV (80-100) fL MCH (26-34) PG MCHC (30-36) % RDW (11.6-14.8) % Plt Count (150-400) X10^3/uL Neut % (Auto) (50-75) % Lymph % (Auto) (25-40) % Saunders % (Auto) (3-14) % Eos % (Auto) (2-4) % Baso % (Auto) (0-2) % Neut # (Auto) (4562-9170) /uL Lymph # (Auto) (4915-2964) /uL Saunders # (Auto) (0-900) /uL Eos # (Auto) (0-450) /uL Baso # (Auto) (0-100) /uL PT (10.1-12.7) SECONDS INR (0.9-1.3) APTT (26-36) SECONDS Sodium (137-145) mmol/L Potassium (3.4-5.1) mmol/L Chloride (98-107) mmol/L Carbon Dioxide (22-32) mmol/L BUN (7-17) mg/dL Creatinine (0.52-1.04) mg/dL Estimated GFR (>60) mL/min BUN/Creatinine Ratio (6-22) Glucose (80-110) mg/dL Calcium (8.4-10.2) mg/dL Total Bilirubin (0.2-1.3) mg/dL AST (14-36) IU/L ALT (<35) IU/L Alkaline Phosphatase (38-126) U/L Total Protein (6.3-8.2) g/dL Albumin (3.5-5.0) g/dL Globulin (1.7-4.1) g/dL Albumin/Globulin Ratio (1.0-2.8) Lipase (23-300) U/L Urine RBC 5-10/hpf H (0-5/HPF) Urine WBC 0-1/hpf (0-5/HPF) Calcium Oxalate Crystal Moderate H Urine Bacteria None seen (None) Ur Culture Indicated? Cult not indicated Point of care testing: Urine Dip Bedside Urine Glucose Negative Bedside Urine Bilirubin - Negative Bedside Urine Ketone + 15 Urine Specific [place] 1.020 Bedside Urine Occult Blood +++ Bedside Urine pH 6.0 Bedside Urine Protein - Negative Bedside Urine Urobilinogen - Negative Bedside Urine Nitrite - Negative Bedside Urine Leukocytes - Negative Esterase ECG Data Attestation: I personally reviewed and interpreted this ECG as follows: Prior ECG tracings: available for review Interpretation: Sinus tachycardia with occasional PVC. Rate of 104 AK 134 QRS of 90 QTC of 447. No acute ST changes noted. Patient has prior from 10/05/2021 which appears similar. MDM Narrative Medical decision making narrative: This is a 71-year-old female who presents with left flank pain that started yesterday she is had some nausea but no vomiting no other systemic infectious changes. Patient had 2 mg of morphine which she found quite helpful but is starting to wear off. Labs do not show significant change to CBC, creatinine is 1.04 bumped up from 0.65 but otherwise normal CMP, urine shows blood no nitrates or leuks. A 4 mm stone on the left with hydro noted on CT today, consistent with patient's complaint of left flank pain although she also notes some right-sided pain today as well her right-sided hydro appears to have resolved on her imaging. And no other signs of other causes today. Plan for pain control, restart patient's Flomax and follow-up with urology. Return precautions. Plan to add oxycodone to her Percocet for pain management. Discharge Plan Departure Patient Disposition: Home Clinical Impression: Kidney stone on left side Instructions: DI for Kidney Stones Activity Restrictions/Additional Instructions: You do have a left-sided 4 mm distal ureteral stone on CT imaging. Please take Flomax once daily until gone You may take oxycodone in addition here regular narcotic pain medication you may take 1-2 tablets of oxycodone every 6 hours. Prescription sent to [facility] in [place]. Please return for fevers, new or worsening abdominal, back or flank pain, persistent vomiting, passing out, black or bloody stools or other new or concerning symptoms Prescriptions: New oxycodone 5 mg tablet 5 mg PO Q6H PRN (Reason: pain) Qty: 14 0RF tamsulosin [Flomax] 0.4 mg capsule 0.4 mg PO DAILY Qty: 10 0RF No Action Eliquis DVT-PE Treat 30D Start 5 mg (74 tabs) tablets,dose pack See Rx Instructions .ROUTE .COMPLEX Qty: 74 0RF Rx Instructions: orally per package directions acetaminophen 325 mg Tablet 975 mg PO TID Qty: 10 0RF polyethylene glycol 3350 17 gram Powder In Packet 17 gm PO DAILY Qty: 10 0RF aspirin 81 mg Tablet,Delayed Release (Dr/Ec) 81 mg PO BID Qty: 10 0RF levothyroxine [Synthroid] 25 mcg Tablet 25 mcg PO DAILY@0600 Qty: 10 0RF docusate sodium 100 mg Capsule 100 mg PO BID Qty: 10 0RF oxycodone 5 mg Tablet 5 mg PO Q3HR PRN (Reason: Pain, Moderate (4-6)) Qty: 30 0RF metoprolol tartrate 25 mg Tablet 25 mg PO BID Qty: 10 0RF Lantus Solostar U-100 Insulin 100 unit/mL (3 mL) Insulin Pen 10 unit SUBCUT 2100 Qty: 15 0RF Referrals: Tejinder Jacobs MD [Primary Care Provider] - Visit Report Forms: Patient Portal/API
[2022-02-18] MEDS: MORPHINE 2 MG/ML INJ IV (01:45)
[2022-02-18 01:49] VITALS: BP 158/75; PULSE 102; O2SAT 99
[2022-02-18 03:13] LABS: Bacteria Urine None Seen; Calcium Oxalate Crystals Urine Moderate; Culture Indicated Urine Cult Not Indicated; RBC Urine 5-10/HPF (0-5/HPF); WBC Urine 0-1/HPF (0-5/HPF)
== END 2022-02-18 01:54 | disposition home or self-care (01) ==
PROVIDERS: Emergency Provider Emergency Medicine; PCP Internal Medicine
DX: N20.0 Calculus of kidney (principal); R11.0 Nausea
CPT/HCPCS: 36415; 74176; 80053; 81003; 81015; 83690; 85025; 85610; 85730; 93005; 96374; 96375; 96376; 99284; J2270; J2405

== ENCOUNTER → 2022-03-16 10:45 | Outpatient (CLI) | payer OTHER, SELFPAY ==
[2021-08-25 23:17] VITALS: BMI 22.6
== END ==
PROVIDERS: PCP Internal Medicine; Referring Provider Internal Medicine; Visit Provider Internal Medicine
DX: S72.91XA Unspecified fracture of right femur, initial encounter for closed fracture (principal); S72.431D Displaced fracture of medial condyle of right femur, subsequent encounter for closed fracture with routine healing; M15.9 Polyosteoarthritis, unspecified

== ENCOUNTER 2022-04-25 16:34 | Emergency (ER) | payer OTHER, SELFPAY ==
[2021-08-25 23:17] VITALS: BMI 22.6
[2022-04-25] VITALS (11 sets, daily range): BP systolic 120–177; BP diastolic 65–84; PULSE 78–104; RESP 17–22; TEMP 36.6; O2SAT 97–100; BMI 18.1
[2022-04-25 17:22] LABS: Amorphous Sediment Urine 1+; Bacteria Urine Occasional (0-1); Culture Indicated Urine Specimen Cultured; Mucus Urine 2+ (Negative); RBC Urine None Seen (0-5/HPF); Squamous Epithelial Cell Urine 1-5 /HPF (0-5/HPF); WBC Urine 10-30/HPF (0-5/HPF)
--- NOTE | 2022-04-25 18:27 | ED.FEMALEGU ---
HPI - Female Genitourinary General Chief complaint: Urogenital-Female Stated complaint: states has kidney stones Time Seen by Provider: 04/25/22 18:11 Source: patient Mode of arrival: Wheelchair History of Present Illness HPI Narrative: 71-year-old female nonsmoker with history of prior kidney stones, most recently found to have nonobstructing stones in bilateral kidneys based on CT that I have reviewed from a visit at [facility] on 04/05, also had a CT KUB here in January noting a 4 mm moderately obstructing stone in the left distal ureter, hypothyroid and hypertension presents with significant other and a chief complaint of subjective fever and chills along with bilateral flank pain that has been present off and on for likely a few weeks. She is not dizzy nor weak or lightheaded. She denies chest pain, shortness of breath or cough. She states the pain she has is largely in bilateral flank and right lower quadrant and seems to be worse with motion and improves with rest. She admits to some dysuria, frequency and urgency but denies any obvious blood. Related Data Previous Rx's Medication Instructions Recorded acetaminophen 325 mg tablet 975 mg PO TID #10 tabs 08/29/21 aspirin 81 mg tablet,delayed 81 mg PO BID #10 tabs 08/29/21 release docusate sodium 100 mg capsule 100 mg PO BID #10 caps 08/29/21 insulin glargine 100 unit/mL (3 10 unit (0.1 mL) SUBCUT 2100 #15 mL 08/29/21 mL) subcutaneous pen (Lantus Solostar U-100 Insulin) levothyroxine 25 mcg tablet 25 mcg PO DAILY@0600 #10 tabs 08/29/21 (Synthroid) metoprolol tartrate 25 mg tablet 25 mg PO BID #10 tabs 08/29/21 oxycodone 5 mg tablet 5 mg PO Q3HR PRN Pain, Moderate 08/29/21 (4-6) #30 tabs polyethylene glycol 3350 17 gram 17 gm PO DAILY #10 ea 08/29/21 oral powder packet apixaban 5 mg (74 tabs) tablets in See Rx Instructions PO .COMPLEX 10/01/21 a dose pack (Eliquis DVT-PE Treat #74 ea 30D Start) oxycodone 5 mg tablet 5 mg PO Q6H PRN pain #14 tabs 02/18/22 tamsulosin 0.4 mg capsule (Flomax) 0.4 mg PO DAILY #10 caps 02/18/22 ciprofloxacin HCl 500 mg tablet 500 mg PO BID #14 tabs 04/25/22 (Cipro) ketorolac 10 mg tablet 10 mg PO Q6H PRN pain #14 tabs 04/25/22 Allergies Allergy/AdvReac Type Severity Reaction Status Date / Time cephalexin [From Keflex] Allergy Unknown Verified 02/17/22 20:03 naproxen Allergy Unknown Verified 02/17/22 20:03 gabapentin AdvReac Severe Agitated Verified 02/17/22 20:03 Review of Systems Review of Systems Narrative: GENERAL: See HPI HEENT: Denies sinus pain, ear pain, sore throat, difficulty swallowing, dizziness. RESPIRATORY: Denies dyspnea, cough, wheezing, hemoptysis, sputum. CARDIOVASCULAR: Denies chest pain, palpitations, orthopnea, edema, GASTROINTESTINAL: Denies nausea, vomiting, abdominal pain, diarrhea, constipation, melena. : See HPI MUSCULOSKELETAL: denies weakness, joint pain, or bony pain SKIN: Denies rash, skin lesions, or other NEUROLOGIC: Denies weakness, headache, numbness, change in speech, confusion, seizures, incoordination. PSYCHIATRIC: No concerning psychosocial issues. 12 point review of systems is negative except for those stated above Patient History Medical History History of fracture of foot Kidney stones Surgical History History of right hip replacement Hx of section Hx of hysterectomy Hx of tubal ligation Family History Mother Diabetes mellitus Osteoporosis Father Medical history unknown alcohol intake frequency: 0-2 drinks per day Substance Use Type: does not use Exam Narrative Exam Narrative: GENERAL: [71] year old patient appears stated age. Well-developed patient, in mild distress. HEAD: Atraumatic. Normocephalic. EYES: Pupils equal round and reactive. Extraocular motions intact. No scleral icterus. No injection or drainage. ENT: Nose without bleeding, purulent drainage. Throat without erythema, tonsillar hypertrophy or exudate. Airway patent. NECK: Trachea midline. Non tender CARDIOVASCULAR: Regular rate and rhythm without murmurs, gallops, or rubs. RESPIRATORY: Clear to auscultation. Breath sounds equal bilaterally. No wheezes, rales, or rhonchi. GASTROINTESTINAL: Abdomen soft, non-tender, nondistended. EXTREMITIES: No edema or joint tenderness. BACK: Moderate right CVA tenderness, mild left CVA tenderness NEURO: AOx3. SKIN: No rash or erythema of visible areas Initial Vital Signs Initial Vital Signs: Vital Signs Temperature 97.9 F 04/25/22 16:46 Pulse Rate 78 04/25/22 16:46 Respiratory Rate 20 04/25/22 16:46 Blood Pressure 120/65 04/25/22 16:46 Pulse Oximetry 97 04/25/22 16:46 Oxygen Delivery Method 04/25/22 16:46 Course Orders Ordered: ED Orders 04/25/22 17:00 Urine Culture Stat Urine Microscopic Stat 04/25/22 18:28 US renal complete Stat 04/25/22 18:50 Basic Metabolic Panel Stat Complete Blood Count AUTO DIFF Stat Discontinued Medications Sodium Chloride (Normal Saline 0.9%) 1,000 mls @ 1,000 mls/hr IV BOLUS ONE Stop: 04/25/22 19:10 Last Infusion: 04/25/22 20:59 Dose: 0 mls/hr Documented By: Admin: 04/25/22 19:10 Dose: 1,000 mls/hr Documented By: RUPESH Levofloxacin (Levaquin) 750 mg in 150 mls @ 100 mls/hr IV NOW ONE Stop: 04/25/22 19:40 Last Infusion: 04/25/22 20:59 Dose: 0 mls/hr Documented By: Admin: 04/25/22 19:28 Dose: 100 mls/hr Documented By: NATHAN Ketorolac Tromethamine (Ketorolac 30 Mg/Ml Vial) 15 mg IV NOW ONE Stop: 04/25/22 18:12 Last Admin: 04/25/22 19:09 Dose: 15 mg Documented By: RUPESH Vital Signs Vital signs: Vital Signs - 8 hr 04/25/22 19:46 04/25/22 19:36 04/25/22 19:45 Pulse Rate 97 H 97 H Respiratory Rate 22 18 Blood Pressure 159/77 H Pulse Oximetry 100 100 Oxygen Delivery Method Room Air 04/25/22 20:00 04/25/22 20:00 04/25/22 20:15 Pulse Rate 100 H 98 H Respiratory Rate 18 22 Blood Pressure 157/73 H Pulse Oximetry 99 100 Oxygen Delivery Method 04/25/22 20:30 04/25/22 20:30 04/25/22 20:45 Pulse Rate 99 H 102 H Respiratory Rate 17 Blood Pressure 157/83 H Pulse Oximetry 100 100 Oxygen Delivery Method 04/25/22 21:00 04/25/22 21:00 04/25/22 21:15 Pulse Rate 102 H 104 H Respiratory Rate 19 18 Blood Pressure 176/84 H Pulse Oximetry 100 100 Oxygen Delivery Method 04/25/22 21:17 04/25/22 21:17 Pulse Rate 103 H Respiratory Rate 17 Blood Pressure 177/82 H Pulse Oximetry 100 Oxygen Delivery Method MDM - Female Genitourinary Lab Data Result diagrams: 04/25/22 18:50 04/25/22 18:50 Labs: Lab Results 04/25/22 04/25/22 04/25/22 Range/Units 17:00 18:50 18:50 WBC 7.3 (4.5-11.0) X10^3/uL RBC 4.65 (4.0-5.2) X10^6/uL Hgb 13.9 (12.0-16.0) g/dL Hct 40.8 (36-46) % MCV 87.7 (80-100) fL MCH 29.8 (26-34) PG MCHC 34.0 (30-36) % RDW 13.6 (11.6-14.8) % Plt Count 317 (150-400) X10^3/uL Neut % (Auto) 58.2 (50-75) % Lymph % (Auto) 31.7 (25-40) % Hardy % (Auto) 6.7 (3-14) % Eos % (Auto) 2.2 (2-4) % Baso % (Auto) 1.2 (0-2) % Neut # (Auto) 4300 (7529-9470) /uL Lymph # (Auto) 2300 (3078-9385) /uL Hardy # (Auto) 500 (0-900) /uL Eos # (Auto) 200 (0-450) /uL Baso # (Auto) 100 (0-100) /uL Sodium 140 (137-145) mmol/L Potassium 3.9 (3.4-5.1) mmol/L Chloride 102 (98-107) mmol/L Carbon Dioxide 29 (22-32) mmol/L BUN 24 H (7-17) mg/dL Creatinine 0.62 (0.52-1.04) mg/dL Estimated GFR > 60 (>60) mL/min BUN/Creatinine Ratio 38.7 H (6-22) Glucose 138 H (80-110) mg/dL Calcium 9.2 (8.4-10.2) mg/dL Urine RBC None seen (0-5/HPF) Urine WBC 10-30/hpf H (0-5/HPF) Ur Squamous Epith Cells 1-5 /hpf (0-5/HPF) Amorphous Sediment 1+ Urine Bacteria Occasional (0-1) (None) Urine Mucus 2+ H (Negative) Ur Culture Indicated? Specimen cultured Urine Dip Bedside Urine Glucose Negative Bedside Urine Bilirubin + 1 Bedside Urine Ketone - Negative Urine Specific Cook 1.025 Bedside Urine Occult Blood - Negative Bedside Urine pH 5.5 Bedside Urine Protein +/- 15 Bedside Urine Urobilinogen - Negative Bedside Urine Nitrite - Negative Bedside Urine Leukocytes - Negative Esterase Imaging Data Renal US: Radiologist's Impression: [address] [id number] ReportSigned Patient: Suman Bateman [facility]#: [id number]: 02/01/1989Acct:[id number]/Sex: 33 / MDate of Service: 04/25/22Loc: EDAccession Number: [id number] Procedure: XR foot LT min 3V Ordering Provider: Tho Redmond D.O. PROCEDURE: XR FOOT LT MIN 3V INDICATIONS: foot injury/pain TECHNIQUE: Three views of the foot were acquired. COMPARISON: None. FINDINGS: Bones: No fractures or dislocations. No suspicious bony lesions. Soft tissues: No tibiotalar joint effusion. Achilles tendon appears normal. IMPRESSION: Intact left foot. Dictated by: Radha Harrison M.D. on 04/25/2022 at 19:17 Approved by: Radha Harrison M.D. on 04/25/2022 at 19:17 [facility] Narrative Medical decision making narrative: 71-year-old female nonsmoker with history of known kidney stones, hypertension and known lower extremity DVT presents with urinary complaints and flank pain and concern of another kidney stone. Kidney stone, pyelonephritis and musculoskeletal injury considered in the differential diagnosis. Ultrasound is reassuring and shows no hydronephrosis, she does not have classic kidney stone symptoms such as colicky, unprovoked pain but a more persistent discomfort consistent with an infectious etiology such as pyelonephritis. Her urine would suggest infectious etiology. She shows significant improvement in symptoms with above-stated therapies, pain is well controlled, she is tolerating orals. Prior visits and imaging have been reviewed including CT from [facility] from a few weeks ago as well as her visit in the emergency department a few months ago. She is given extensive return precautions and questions have been answered to her apparent satisfaction Discharge Plan Departure Patient Disposition: Home Clinical Impression: Acute pyelonephritis Instructions: DI for Kidney Infection Activity Restrictions/Additional Instructions: *You have been diagnosed with [acute pyelonephritis] *What to do: *Please continue to take your regular medications as directed. [ ] New medication prescriptions sent to your pharmacy: [ [facility]] [ ] New medication written as a paper prescription [ ] No new medications given *Please follow up with your primary care provider in 2-3 days, call for an appointment. Let them know you were seen in the Emergency Department and that we ask that you be seen in follow up. We will electronically transmit a record of today's note if your PCP is in our system *Return to Emergency Department if you should have any new, worsening or concerning symptoms Prescriptions: New ciprofloxacin HCl [Cipro] 500 mg tablet 500 mg PO BID Qty: 14 0RF ketorolac 10 mg tablet 10 mg PO Q6H PRN (Reason: pain) Qty: 14 0RF No Action Eliquis DVT-PE Treat 30D Start 5 mg (74 tabs) tablets,dose pack See Rx Instructions .ROUTE .COMPLEX Qty: 74 0RF Rx Instructions: orally per package directions oxycodone 5 mg tablet 5 mg PO Q6H PRN (Reason: pain) Qty: 14 0RF tamsulosin [Flomax] 0.4 mg capsule 0.4 mg PO DAILY Qty: 10 0RF acetaminophen 325 mg Tablet 975 mg PO TID Qty: 10 0RF polyethylene glycol 3350 17 gram Powder In Packet 17 gm PO DAILY Qty: 10 0RF aspirin 81 mg Tablet,Delayed Release (Dr/Ec) 81 mg PO BID Qty: 10 0RF levothyroxine [Synthroid] 25 mcg Tablet 25 mcg PO DAILY@0600 Qty: 10 0RF docusate sodium 100 mg Capsule 100 mg PO BID Qty: 10 0RF oxycodone 5 mg Tablet 5 mg PO Q3HR PRN (Reason: Pain, Moderate (4-6)) Qty: 30 0RF metoprolol tartrate 25 mg Tablet 25 mg PO BID Qty: 10 0RF Lantus Solostar U-100 Insulin 100 unit/mL (3 mL) Insulin Pen 10 unit SUBCUT 2100 Qty: 15 0RF Referrals: Tejinder Jacobs MD [Primary Care Provider] - Visit Report Forms: Patient Portal/API
--- NOTE | 2022-04-25 18:28 | DI.US.S_ITS ---
PROCEDURE: US RENAL COMPLETE INDICATIONS: FLANK PAIN; KNOWN STONES TECHNIQUE: Real-time scanning was performed of the kidneys and bladder, with image documentation. COMPARISON: None. FINDINGS: Kidneys: Kidneys are normal in size. Right kidney measures 10.8 cm long; left kidney measures 9.7 cm long. Right renal cortical thickness is 1.2 cm; left renal cortical thickness is 1.2 cm. Renal cortical echotexture is normal. There are several nonobstructing intrarenal calculi in upper and lower pole of both kidneys. No evidence of hydronephrosis. Right upper pole simple renal cyst measures 3.8 cm. No suspicious solid mass lesions. Bladder: Not filled and therefore not evaluated. Miscellaneous: No free pelvic fluid. IMPRESSION: 1. Multiple bilateral nonobstructing intrarenal calculi. 2. No hydronephrosis to suggest obstructive uropathy. 3. Un filled urinary bladder is not evaluated. Dictated by: Radha Harrison M.D. on 04/25/2022 at 20:38 Approved by: Radha Harrison M.D. on 04/25/2022 at 20:41
[2022-04-25] MEDS: KETOROLAC 30 MG/ML VIAL 15 MG IV (19:09)
[2022-04-25] MEDS: SODIUM CHLORIDE 0.9% 1,000 ML 1000 ML IV (19:10)
[2022-04-25 19:26] LABS: Add Manual Diff / Slide Review NO; Basophils Absolute Auto 100 /uL (0-100); Basophils Percent Auto 1.2 % (0-2); Eosinophils Absolute Auto 200 /uL (0-450); Eosinophils Percent Auto 2.2 % (2-4); Hematocrit 40.8 % (36-46); Hemoglobin 13.9 g/dL (12.0-16.0); Lymphocytes Absolute Auto 2300 /uL (1100-4500); Lymphocytes Percent Auto 31.7 % (25-40); Mean Corpuscular Hemoglobin 29.8 PG (26-34); Mean Corpuscular Volume 87.7 fL (80-100); Monocytes Absolute Auto 500 /uL (0-900); Monocytes Percent Auto 6.7 % (3-14); Neutrophils Absolute Auto 4300 /uL (1500-7000); Neutrophils Percent Auto 58.2 % (50-75); Platelet Count 317 X10^3/uL (150-400); Red Blood Cell Count 4.65 X10^6/uL (4.0-5.2); Red Cell Distribution Width 13.6 % (11.6-14.8); White Blood Cell Count 7.3 X10^3/uL (4.5-11.0)
[2022-04-25] MEDS: levoFLOXacin 750 MG/150 ML PIGGYBACK 100 MG IV (19:28)
--- NOTE | 2022-04-25 19:40 | PC.NURSE ---
2nd iv attempt unsuccessful, 2x2 with elastic bandage.
[2022-04-25 19:43] LABS: BUN Creatinine Ratio 38.7 (6-22); Blood Urea Nitrogen 24 mg/dL (7-17); Calcium 9.2 mg/dL (8.4-10.2); Carbon Dioxide 29 mmol/L (22-32); Chloride 102 mmol/L (98-107); Estimated Glomerular Filt Rate > 60 mL/min (>60); Glucose 138 mg/dL (80-110); HEMOLYSIS < 15 (0-50); Potassium 3.9 mmol/L (3.4-5.1); Sodium 140 mmol/L (137-145)
== END 2022-04-25 21:31 | disposition home or self-care (01) ==
PROVIDERS: Emergency Medicine; Emergency Provider Emergency Medicine; PCP Internal Medicine
DX: N10 Acute pyelonephritis (principal)
CPT/HCPCS: 36415; 76770; 80048; 81003; 81015; 85025; 87086; 96365; 96366; 96375; 99284; J1885; J1956

== ENCOUNTER 2023-03-23 08:51 | Emergency (ER) | payer OTHER, SELFPAY ==
[2021-08-25 23:17] VITALS: BMI 22.6
[2023-03-23] VITALS (10 sets, daily range): BP systolic 141–150; BP diastolic 78–105; PULSE 78–115; RESP 11–26; TEMP 36.9–38.5; O2SAT 94–98; BMI 23.4
--- NOTE | 2023-03-23 09:19 | DI.RAD.S_ITS ---
PROCEDURE: XR CHEST 1V INDICATIONS: suspected sepsis TECHNIQUE: One view of the chest was acquired. COMPARISON: [facility], CR, XR CHEST 1V, 10/05/2021, 10:20. FINDINGS: Surgical changes and devices: None. Lungs and pleura: Lungs are clear. No pleural effusions or pneumothorax. Mediastinum: Mediastinal contours appear normal. Heart size is normal. Bones and chest wall: No suspicious bony lesions. Overlying soft tissues appear unremarkable. IMPRESSION: Portable chest within normal limits for age. Dictated by: Jcarlos Norwood M.D. on 03/23/2023 at 8:51 Approved by: Jcarlos Norwood M.D. on 03/23/2023 at 8:52
[2023-03-23 09:28] LABS: Add Manual Diff / Slide Review NO; Basophils Absolute Auto 0 /uL (0-100); Basophils Percent Auto 0.5 % (0-2); Eosinophils Absolute Auto 0 /uL (0-450); Hematocrit 41.5 % (36-46); Lymphocytes Absolute Auto 1000 /uL (1100-4500); Lymphocytes Percent Auto 13.4 % (25-40); Mean Corpuscular HGB Conc 33.8 % (30-36); Mean Corpuscular Hemoglobin 28.8 PG (26-34); Mean Corpuscular Volume 85.3 fL (80-100); Monocytes Absolute Auto 600 /uL (0-900); Monocytes Percent Auto 7.9 % (3-14); Neutrophils Absolute Auto 5600 /uL (1500-7000); Neutrophils Percent Auto 78.2 % (50-75); Platelet Count 204 X10^3/uL (150-400); Red Blood Cell Count 4.86 X10^6/uL (4.0-5.2); Red Cell Distribution Width 13.2 % (11.6-14.8); White Blood Cell Count 7.1 X10^3/uL (4.5-11.0)
[2023-03-23 09:30] LABS: INR 1.1 (0.9-1.3); Prothrombin Time 12.7 SECONDS (10.1-12.7)
[2023-03-23 09:32] LABS: PTT Partial Thromboplastin Tim 30 SECONDS (26-36)
[2023-03-23 09:34] LABS: Alanine Aminotransferase 26 IU/L (<35); Albumin 4.4 g/dL (3.5-5.0); Albumin Globulin Ratio 1.4 (1.0-2.8); Alkaline Phosphatase 136 U/L (38-126); Aspartate Aminotransferase 41 IU/L (14-36); BUN Creatinine Ratio 20.3 (6-22); Bilirubin Total 0.3 mg/dL (0.2-1.3); Blood Urea Nitrogen 15 mg/dL (7-17); Calcium 8.7 mg/dL (8.4-10.2); Carbon Dioxide 27 mmol/L (22-32); Chloride 96 mmol/L (98-107); Estimated Glomerular Filt Rate > 60 mL/min (>60); Globulin 3.2 g/dL (1.7-4.1); Glucose 253 mg/dL (80-110); HEMOLYSIS 19 (0-50); Lipase 84 U/L (23-300); Potassium 3.8 mmol/L (3.4-5.1); Sodium 133 mmol/L (137-145); Total Protein 7.6 g/dL (6.3-8.2)
[2023-03-23 09:35] LABS: Lactate (Lactic Acid) 2.5 mmol/L (0.7-2.1)
--- NOTE | 2023-03-23 09:45 | ED.SOB ---
HPI - SOB/Dyspnea General Chief Complaint: Shortness of Breath/Dyspnea Stated Complaint: per pt bronchitis Time Seen by Provider: 03/23/23 09:44 Source: patient, RN notes reviewed and old records reviewed Limitations: no limitations History of Present Illness HPI Narrative: This is a 71-year-old female nonsmoker history of prior kidney stones, hypertension, dyslipidemia, diabetes type 2 with prior DVT after femur fracture who presents with concern for bronchitis patient states she is had 5 days of symptoms her and her both tested positive for COVID earlier in the week at [facility] with [facility]. Patient states she is had fevers, she describes some chest discomfort and shortness of breath or cough which has been productive with yellow-green sputum. She has had nausea but no vomiting some decreased appetite. She does note bilateral ear pain sore throat. She states she is been a little bit more constipated has had some bowel movements in the last couple days. Denies any urinary symptoms dysuria urgency or frequency. No new abdominal back or flank pain. Patient states she is felt woozy and generally unwell. She states she does typically get bronchitis every fall she thinks she may get an antibiotic when this happens but she is unsure. She states she takes oxycodone, trazodone she is no longer on insulin she states her glucose was very elevated when she was hospitalized for a femur fracture but has normalized. She states she quit taking her Eliquis as issues with her kidney stones she did have a DVT associated with a femur fracture. No other reported history of DVT she denies any cardiac history or MIs. Patient had femur fracture in August 2021 with repair. Allergic to Keflex, naproxen gabapentin. No tobacco, alcohol or illicit. She is accompanied by her . Patient has not had anything for fever or discomfort today. Related Data Previous Rx's Medication Instructions Recorded acetaminophen 325 mg tablet 975 mg (3 x 325 mg) PO TID #10 tabs 08/29/21 aspirin 81 mg tablet,delayed 81 mg PO BID #10 tabs 08/29/21 release docusate sodium 100 mg capsule 100 mg PO BID #10 caps 08/29/21 insulin glargine 100 unit/mL (3 10 unit (0.1 mL) SUBCUT 2100 #15 mL 08/29/21 mL) subcutaneous pen (Lantus Solostar U-100 Insulin) levothyroxine 25 mcg tablet 25 mcg PO DAILY@0600 #10 tabs 08/29/21 (Synthroid) metoprolol tartrate 25 mg tablet 25 mg PO BID #10 tabs 08/29/21 oxycodone 5 mg tablet 5 mg PO Q3HR PRN Pain, Moderate 08/29/21 (4-6) #30 tabs polyethylene glycol 3350 17 gram 17 gm PO DAILY #10 ea 08/29/21 oral powder packet apixaban 5 mg (74 tabs) tablets in See Rx Instructions PO .COMPLEX 10/01/21 a dose pack (OneBuild DVT-PE Treat #74 ea 30D Start) oxycodone 5 mg tablet 5 mg PO Q6H PRN pain #14 tabs 02/18/22 tamsulosin 0.4 mg capsule (Flomax) 0.4 mg PO DAILY #10 caps 02/18/22 ciprofloxacin HCl 500 mg tablet 500 mg PO BID #14 tabs 04/25/22 (Cipro) ketorolac 10 mg tablet 10 mg PO Q6H PRN pain #14 tabs 04/25/22 benzonatate 100 mg capsule 100 mg PO TID PRN cough #20 caps 03/23/23 doxycycline hyclate 100 mg tablet 100 mg PO BID #20 tabs 03/23/23 Allergies Allergy/AdvReac Type Severity Reaction Status Date / Time cephalexin [From Keflex] Allergy Unknown Verified 03/23/23 09:05 naproxen Allergy Unknown Verified 03/23/23 09:05 gabapentin AdvReac Severe Agitated Verified 03/23/23 09:05 Review of Systems Review of Systems ROS Unobtainable: All systems reviewed & are unremarkable except as noted in HPI and below Patient History Medical History History of fracture of foot Kidney stones Surgical History Hx of section Hx of tubal ligation History of right hip replacement Hx of hysterectomy Family History Mother Diabetes mellitus Osteoporosis Father Medical history unknown Social History household members: spouse Smoking Status: Never smoker Smoking Status: Never smoker alcohol intake frequency: 0-2 drinks per day Substance Use Type: does not use Exam Narrative Exam Narrative: GEN: Elderly appearing female, alert and oriented x 3, patient appears to be in mild distress. Patient feels warm to touch. HEENT: Atraumatic, pupils are equal round reactive to light, extraocular movements are intact, nares are clear, TMs are clear with no fluid, there is no conjunctival pallor. Throat is clear without any exudates, patient does have some mild erythema erythema, no tonsillar enlargement or uvular deviation, no muffled voice. HEART: Regular rate and rhythm without murmur, clicks, rubs. Pulses are equal in upper and lower extremities LUNGS:Lungs clear to auscultation, no wheezes, rales, crackles, chest moves symmetrically, patient has a cough. No tachypnea. No accessory muscle use. Speaks in full sentences. ABD:bowel sounds normal, soft, non-tender, no guarding, rebound, rigidity, no masses noted, no hepatosplenomegaly :No CVA tenderness MSCL: Non-tender, no muscle atrophy, muscles strength 5/5 upper and lower extremities, full range of motion, normal gait NEURO:CN 2-12 intact, sensation normal. SKIN: No rash, erythema or other changes noted Initial Vital Signs Initial Vital Signs: Vital Signs Temperature 99.9 F H 03/23/23 08:59 Pulse Rate 109 H 03/23/23 08:59 Respiratory Rate 26 H 03/23/23 08:59 Blood Pressure 143/83 H 03/23/23 08:59 Pulse Oximetry 95 03/23/23 08:59 Oxygen Delivery Method Room Air 03/23/23 08:59 Course Orders Ordered: ED Orders 03/23/23 09:30 Blood Culture Stat 03/23/23 09:35 EKG-12 Lead Stat 03/23/23 09:55 Urinalysis and Microscopic Stat Urine Culture Stat 03/23/23 10:23 CT angio chest PE protocol Stat Discontinued Medications Acetaminophen (Acetaminophen 325 Mg Tablet) 975 mg PO NOW ONE Stop: 03/23/23 09:57 Last Admin: 03/23/23 10:18 Dose: 975 mg Documented By: RB Doxycycline Hyclate (Doxycycline Hyclate 100 Mg Tablet) 100 mg PO NOW ONE Stop: 03/23/23 11:50 Last Admin: 03/23/23 11:58 Dose: 100 mg Documented By: TEP Sodium Chloride (Normal Saline 0.9%) 1,000 mls @ 1,000 mls/hr IV BOLUS ONE Stop: 03/23/23 10:18 Last Infusion: 03/23/23 12:17 Dose: Infused Documented By: Admin: 03/23/23 10:17 Dose: 1,000 mls/hr Documented By: RB Ondansetron HCl (Ondansetron 4 Mg/2 Ml Inj) 4 mg IV NOW PRN PRN Reason: Nausea And Vomiting Ondansetron HCl (Ondansetron 4 Mg Odt) 4 mg SL NOW PRN PRN Reason: Nausea And Vomiting Vital Signs Vital signs: Vital Signs - 8 hr 03/23/23 10:30 03/23/23 10:30 03/23/23 11:10 Temperature Pulse Rate 98 H 97 H Respiratory Rate 13 Blood Pressure 150/78 H Pulse Oximetry 94 Oxygen Delivery Method 03/23/23 11:30 03/23/23 11:39 03/23/23 12:00 Temperature 98.8 F Pulse Rate 90 87 Respiratory Rate 11 L 19 Blood Pressure Pulse Oximetry 98 96 Oxygen Delivery Method 03/23/23 12:12 Temperature 98.4 F Pulse Rate 78 Respiratory Rate 18 Blood Pressure 141/80 H Pulse Oximetry 94 Oxygen Delivery Method Room Air MDM - SOB/Dyspnea Lab Data 03/23/23 09:12 03/23/23 09:12 Labs: Lab Results 03/23/23 03/23/23 03/23/23 Range/Units 09:12 09:55 11:30 WBC 7.1 (4.5-11.0) X10^3/uL RBC 4.86 (4.0-5.2) X10^6/uL Hgb 14.0 (12.0-16.0) g/dL Hct 41.5 (36-46) % MCV 85.3 (80-100) fL MCH 28.8 (26-34) PG MCHC 33.8 (30-36) % RDW 13.2 (11.6-14.8) % Plt Count 204 (150-400) X10^3/uL Neut % (Auto) 78.2 H (50-75) % Lymph % (Auto) 13.4 L (25-40) % [place] % (Auto) 7.9 (3-14) % Eos % (Auto) 0.0 L (2-4) % Baso % (Auto) 0.5 (0-2) % Neut # (Auto) 5600 (3823-9887) /uL Lymph # (Auto) 1000 L (9167-9108) /uL [place] # (Auto) 600 (0-900) /uL Eos # (Auto) 0 (0-450) /uL Baso # (Auto) 0 (0-100) /uL PT 12.7 (10.1-12.7) SECONDS INR 1.1 (0.9-1.3) APTT 30 (26-36) SECONDS D-Dimer 2005 H (<500) ng/ml Sodium 133 L (137-145) mmol/L Potassium 3.8 (3.4-5.1) mmol/L Chloride 96 L (98-107) mmol/L Carbon Dioxide 27 (22-32) mmol/L BUN 15 (7-17) mg/dL Creatinine 0.74 (0.52-1.04) mg/dL Estimated GFR > 60 (>60) mL/min BUN/Creatinine Ratio 20.3 (6-22) Glucose 253 H (80-110) mg/dL Lactate 2.5 H 1.0 (0.7-2.1) mmol/L Calcium 8.7 (8.4-10.2) mg/dL Total Bilirubin 0.3 (0.2-1.3) mg/dL AST 41 H (14-36) IU/L ALT 26 (<35) IU/L Alkaline Phosphatase 136 H (38-126) U/L Total Creatine Kinase 232 H (30-135) U/L Troponin I < 0.012 (0.01-0.034) ng/mL NT-Pro-B Natriuret Pep 104 (<125) pg/mL Total Protein 7.6 (6.3-8.2) g/dL Albumin 4.4 (3.5-5.0) g/dL Globulin 3.2 (1.7-4.1) g/dL Albumin/Globulin Ratio 1.4 (1.0-2.8) Lipase 84 (23-300) U/L Procalcitonin 0.09 (<0.5) ng/mL Urine Color Yellow Urine Appearance Clear Urine pH 5.0 (4.5-8.0) Ur Specific [place] >=1.030 H (1.000-1.035) Urine Protein 1+ H (Negative) Urine Glucose (UA) Negative (Negative) g/dL Urine Ketones 1+ H (NEGATIVE) Urine Occult Blood Trace-intact (Negative) Urine Nitrate Negative (Negative) Urine Bilirubin Negative (NEGATIVE) Urine Urobilinogen 0.2 (0.2) E.U./dL Ur Leukocyte Esterase Negative (NEGATIVE) Urine RBC 1-5/hpf (0-5/HPF) Urine WBC 5-10/hpf H (0-5/HPF) Ur Squamous Epith Cells 1-5 /hpf (0-5/HPF) Amorphous Sediment 2+ Urine Bacteria Occasional (0-1) (None) Urine Mucus 2+ H (Negative) Ur Culture Indicated? Specimen cultured Imaging Data Chest x-ray: Radiologist's Impression: [address] [address] XRay Report Signed Patient: Maria T Vang MR#: [id number] : 1950 Acct:[id number] Age/Sex: 72 / F Date of Service: 03/23/23 Loc: ED Accession Number: [id number] Procedure: XR chest 1V Ordering Provider: Anitra Rosa D.O. PROCEDURE: XR CHEST 1V INDICATIONS: suspected sepsis TECHNIQUE: One view of the chest was acquired. COMPARISON: [facility], , XR CHEST 1V, 10/05/2021, 10:20. FINDINGS: Surgical changes and devices: None. Lungs and pleura: Lungs are clear. No pleural effusions or pneumothorax. Mediastinum: Mediastinal contours appear normal. Heart size is normal. Bones and chest wall: No suspicious bony lesions. Overlying soft tissues appear unremarkable. IMPRESSION: Portable chest within normal limits for age. Dictated by: Jcarlos Norwood M.D. on 03/23/2023 at 8:51 Approved by: Jcarlos Norwood M.D. on 03/23/2023 at 8:52 CT scan - chest: Radiologist's Impression: Close Chest CTA (Signed) Jcarlos Norwood - 03/23/23 Chest X-Ray (Signed) Jcarlos Norwood - 03/23/23 Launch?Image [address] [address] [address] Scan Report Signed Patient: Maria T Vang MR#: [id number] : 1950 Acct:[id number] Age/Sex: 72 / F Date of Service: 03/23/23 Loc: ED Accession Number: [id number] Procedure: CT angio chest PE protocol Ordering Provider: Anitra Rosa D.O. PROCEDURE: CT ANGIO CHEST PE PROTOCOL INDICATIONS: chest pain, sob, +covid, hx of dvt in past TECHNIQUE: After the administration of intravenous contrast, 2 mm thick sections acquired from the pulmonary apices to the posterior costophrenic angles. 3-dimensional maximum intensity projection (MIP) coronal and sagittal reformats were then acquired through the thorax. For radiation dose reduction, the following was used: automated exposure control, adjustment of mA and/or kV according to patient size. COMPARISON: [facility], CT, CT ANGIO CHEST PE PROTOCOL, 10/05/2021, 10:18. FINDINGS: Image quality: Excellent. Pulmonary arteries: Pulmonary arteries are normal in size, and demonstrate no intraluminal filling defects to suggest central pulmonary embolism. Lungs and pleura: Tree-in-bud nodules with slight ground-glass opacities within the lower aspect of the right upper lobe. No pleural effusions or pneumothorax. Central and peripheral airways are patent. A few stable non concerning pulmonary nodules. Mediastinum: Heart size is normal, without pericardial effusion. No mediastinal or hilar adenopathy. Thoracic aorta is normal in caliber and enhancement. Esophagus is normal in caliber, without hiatal hernia. Bones and chest wall: No suspicious bony lesions. Ribs and thoracic spine appear intact throughout. Thyroid gland contains a right 1.4 centimeter thyroid nodule. No axillary or supraclavicular adenopathy. Abdomen: Visualized upper abdominal solid organs appear normal in the early arterial phase of enhancement. IMPRESSION: 1. No pulmonary embolus. 2. Tree in bud nodularity of the right upper lobe is concerning for infectious etiologies. 3. Small right thyroid nodule measuring 1.3 cm. Consider outpatient ultrasound evaluation. Dictated by: Jcarlos Norwood M.D. on 03/23/2023 at 10:32 Approved by: Jcarlos Norwood M.D. on 03/23/2023 at 10:39 ECG Data Attestation: I personally reviewed and interpreted this ECG as follows: Prior ECG tracings: available for review Interpretation: Sinus tachycardia rate of 108 DE 134 QRS is 76 and QTC 436. No acute ST elevation or depression noted. Patient has prior from 02/17/2022 with no acute changes. MDM Narrative Medical decision making narrative: 72-year-old female who tested positive for COVID with symptoms for the past 5 days patient has had persistent fevers, cough with productive sputum. She is little tachycardic initially had slight elevation and respiratory rate but on examination as appropriate lungs are clear, patient does have a prior history of blood clot but after femur fracture. She has some increased risk with recent COVID infection suspect this is likely persistent COVID systems it is only been 5 days but labs, EKG chest x-ray were obtained. Lab workup shows little bit of leftward shift normal white count, hemoglobin and platelets, dimer elevated at 2000, coags are otherwise normal, sodium 133 chloride 96 normal renal function glucose of 253 with a lactate of 2 5, AST is 41 alk-phos 136 but ALT is 26 with a bilirubin of 0.3 and a negative lipase negative troponin. Urine shows protein, ketones, 5-10 white cells but patient also has 1-5 squamous epithelials occasional bacteria with negative nitrites and leuks specimen was cultured but patient currently has respiratory symptoms and less likely source. CT angio was obtained secondary to dimer being elevated initial chest x-ray showed no acute change. CT at shows tree-in-bud nodularity in the right upper lobe concerning with infectious cause less likely to be COVID. Thyroid nodule, no pulmonary emboli. Secondary these findings would treat patient with oral antibiotic. Patient notes that she typically has some persistent tachycardia and this is not atypical for her. Patient was given Tylenol, fluids. Did have some improvement. Still slightly tachycardic no hypoxic episodes. Discussed with patient she feel comfortable returning home. Discussed return precautions. She does had recent COVID diagnosis on top changes on her CT which are more consistent with bacterial pneumonia. Discussed she may have some lingering symptoms from the COVID but should start to notice improvement in 24-48 hours. Patient and family at bedside both feel comfortable returning home she did ask for something for her cough. She is currently on oxycodone daily. Discharge Plan Departure Patient Disposition: Home Clinical Impression: Pneumonia Instructions: DI for Pneumonia -- Adult Activity Restrictions/Additional Instructions: Your CT scan today does show changes more consistent with a bacterial pneumonia. Please take antibiotics until completed. Prescription for Tessalon Perles is included you may take 1 every 8 hours as needed for cough. Keep these away from children they are not safe for them. Continue Tylenol up to a 1000 mg every 6 hours as needed for fevers and/or ibuprofen up to 600 mg every 6 hours as needed. Prescription sent to [facility] in [place]. Please return for new or worsening symptoms increasing chest pain, shortness of breath, lightheadedness or passing out, new swelling in her extremities, persistent vomiting or other new or concerning changes. Prescriptions: New doxycycline hyclate 100 mg tablet 100 mg PO BID Qty: 20 0RF benzonatate 100 mg capsule 100 mg PO TID PRN (Reason: cough) Qty: 20 0RF No Action Eliquis DVT-PE Treat 30D Start 5 mg (74 tabs) tablets,dose pack See Rx Instructions .ROUTE .COMPLEX Qty: 74 0RF Rx Instructions: orally per package directions oxycodone 5 mg tablet 5 mg PO Q6H PRN (Reason: pain) Qty: 14 0RF tamsulosin [Flomax] 0.4 mg capsule 0.4 mg PO DAILY Qty: 10 0RF acetaminophen 325 mg Tablet 975 mg PO TID Qty: 10 0RF polyethylene glycol 3350 17 gram Powder In Packet 17 gm PO DAILY Qty: 10 0RF aspirin 81 mg Tablet,Delayed Release (Dr/Ec) 81 mg PO BID Qty: 10 0RF levothyroxine [Synthroid] 25 mcg Tablet 25 mcg PO DAILY@0600 Qty: 10 0RF docusate sodium 100 mg Capsule 100 mg PO BID Qty: 10 0RF oxycodone 5 mg Tablet 5 mg PO Q3HR PRN (Reason: Pain, Moderate (4-6)) Qty: 30 0RF metoprolol tartrate 25 mg Tablet 25 mg PO BID Qty: 10 0RF Lantus Solostar U-100 Insulin 100 unit/mL (3 mL) Insulin Pen 10 unit SUBCUT 2100 Qty: 15 0RF ciprofloxacin HCl [Cipro] 500 mg tablet 500 mg PO BID Qty: 14 0RF ketorolac 10 mg tablet 10 mg PO Q6H PRN (Reason: pain) Qty: 14 0RF Referrals: Tejinder Jacobs MD [Primary Care Provider] - Stand Alone Forms: Patient Portal/API
[2023-03-23 09:50] LABS: Procalcitonin 0.09 ng/mL (<0.5)
[2023-03-23 10:08] LABS: D Dimer 2005 ng/ml (<500)
[2023-03-23 10:09] LABS: Creatine Kinase 232 U/L (30-135)
[2023-03-23 10:16] LABS: Appearance Urine UA CLEAR; Bilirubin Urine UA NEGATIVE (NEGATIVE); Color Urine UA YELLOW; Glucose Urine UA NEGATIVE (Negative); Ketones Urine UA 1+ (NEGATIVE); Leukocyte Esterase Urine UA NEGATIVE (NEGATIVE); Nitrite Urine UA NEGATIVE (Negative); Occult Blood Urine UA TRACE-INTACT (Negative); Protein Urine UA 1+ (Negative); Specific Gravity Urine UA >=1.030 (1.000-1.035); Urobilinogen Urine UA 0.2 E.U./dL (0.2)
[2023-03-23] MEDS: SODIUM CHLORIDE 0.9% 1,000 ML 1000 ML IV (10:17)
[2023-03-23] MEDS: ACETAMINOPHEN 325 MG TABLET 975 MG PO (10:18)
[2023-03-23 10:22] LABS: NT-proBNP (BNP-Adult 18+) 104 pg/mL (<125); Troponin I < 0.012 ng/mL (0.01-0.034)
--- NOTE | 2023-03-23 10:23 | DI.CT.S_ITS ---
PROCEDURE: CT ANGIO CHEST PE PROTOCOL INDICATIONS: chest pain, sob, +covid, hx of dvt in past TECHNIQUE: After the administration of intravenous contrast, 2 mm thick sections acquired from the pulmonary apices to the posterior costophrenic angles. 3-dimensional maximum intensity projection (MIP) coronal and sagittal reformats were then acquired through the thorax. For radiation dose reduction, the following was used: automated exposure control, adjustment of mA and/or kV according to patient size. COMPARISON: [facility], CT, CT ANGIO CHEST PE PROTOCOL, 10/05/2021, 10:18. FINDINGS: Image quality: Excellent. Pulmonary arteries: Pulmonary arteries are normal in size, and demonstrate no intraluminal filling defects to suggest central pulmonary embolism. Lungs and pleura: Tree-in-bud nodules with slight ground-glass opacities within the lower aspect of the right upper lobe. No pleural effusions or pneumothorax. Central and peripheral airways are patent. A few stable non concerning pulmonary nodules. Mediastinum: Heart size is normal, without pericardial effusion. No mediastinal or hilar adenopathy. Thoracic aorta is normal in caliber and enhancement. Esophagus is normal in caliber, without hiatal hernia. Bones and chest wall: No suspicious bony lesions. Ribs and thoracic spine appear intact throughout. Thyroid gland contains a right 1.4 centimeter thyroid nodule. No axillary or supraclavicular adenopathy. Abdomen: Visualized upper abdominal solid organs appear normal in the early arterial phase of enhancement. IMPRESSION: 1. No pulmonary embolus. 2. Tree in bud nodularity of the right upper lobe is concerning for infectious etiologies. 3. Small right thyroid nodule measuring 1.3 cm. Consider outpatient ultrasound evaluation. Dictated by: Jcarlos Norwood M.D. on 03/23/2023 at 10:32 Approved by: Jcarlos Norwood M.D. on 03/23/2023 at 10:39
[2023-03-23 10:25] LABS: RBC Urine 1-5/HPF (0-5/HPF)
[2023-03-23 10:26] LABS: Amorphous Sediment Urine 2+; Bacteria Urine Occasional (0-1); Culture Indicated Urine Specimen Cultured; Mucus Urine 2+ (Negative); Squamous Epithelial Cell Urine 1-5 /HPF (0-5/HPF); WBC Urine 5-10/HPF (0-5/HPF)
[2023-03-23 11:24] LABS: Reflexed Lactate in 2 Hours Y
[2023-03-23] MEDS: DOXYCYCLINE HYCLATE 100 MG TABLET PO (11:58)
== END 2023-03-23 12:15 | disposition home or self-care (01) ==
PROVIDERS: Emergency Provider Emergency Medicine; PCP Internal Medicine
DX: J18.9 Pneumonia, unspecified organism (principal); R00.0 Tachycardia, unspecified; R07.9 Chest pain, unspecified; Z79.01 Long term (current) use of anticoagulants; Z79.899 Other long term (current) drug therapy
CPT/HCPCS: 36415; 71045; 71275; 80053; 81001; 82550; 83605; 83690; 83880; 84145; 84484; 85025; 85379; 85610; 85730; 87040; 87086; 93005; 93010; 96360; 96361; 99284; 99285; Q9967

== ENCOUNTER → 2023-05-29 09:43 | Outpatient (CLI) | payer OTHER, SELFPAY ==
[2021-08-25 23:17] VITALS: BMI 22.6
--- NOTE | 2023-05-29 09:46 | DI.RAD.S_ITS ---
PROCEDURE: XR KNEE LT 1TO2V INDICATIONS: LEFT HIP PAIN AND KNEE PAIN TECHNIQUE: 3 views of the knee were acquired. COMPARISON: [facility], CR, XR KNEE RT 1TO2V, 08/26/2021, 16:59. [facility], CR, XR KNEE RT 1TO2V, 08/25/2021, 20:35. FINDINGS: Bones: Bykr-sg-pklxlobx degenerative changes, particularly the medial compartment. No displaced fracture or dislocation. Soft tissues: No significant joint effusion. IMPRESSION: Wvbv-cb-imtjzzfo degenerative changes. No acute radiographic abnormality. If there is high concern for further derangement, consider MRI evaluation. Dictated by: Huang Baptiste M.D. on 05/29/2023 at 13:02 Approved by: Huang Baptiste M.D. on 05/29/2023 at 13:02
--- NOTE | 2023-05-29 09:47 | DI.RAD.S_ITS ---
PROCEDURE: XR KNEE RT 1TO2V INDICATIONS: LEFT HIP PAIN AND KNEE PAIN TECHNIQUE: 2 views of the knee were acquired. COMPARISON: [facility], CR, XR KNEE RT 1TO2V, 08/26/2021, 16:59. [facility], CR, XR KNEE RT 1TO2V, 08/25/2021, 20:35. [facility], CR, XR KNEE LT 1TO2V, 05/29/2023, 9:56. FINDINGS: Bones: Partially seen femoral fixation. No acute fracture. Zkqa-ta-ppavawtl knee degenerative changes. Alignment appears maintained. Soft tissues: Small joint fluid. IMPRESSION: Uiyl-oe-sovinqpc knee arthrosis. Postsurgical changes partially seen at the femur. Consider cross-sectional imaging if there is further concern. Dictated by: Huang Baptiste M.D. on 05/29/2023 at 13:00 Approved by: Huang Baptiste M.D. on 05/29/2023 at 13:01
--- NOTE | 2023-05-29 09:47 | DI.RAD.S_ITS ---
PROCEDURE: XR HIP W PEL IF DONE LT 2V INDICATIONS: LEFT HIP PAIN AND KNEE PAIN TECHNIQUE: 2 views of the hip were acquired. COMPARISON: [facility], CR, XR PELVIS WITH LATERAL HIP RIGHT, 11/01/2021, 15:30. [facility], CR, XR HIP W PEL IF DONE RT 2V, 10/01/2021, 10:19. FINDINGS: Bones: Right hip arthroplasty with surrounding heterotopic ossification. Partially seen fixation of the femoral shaft also seen present. Lumbosacral degenerative changes. Wsid-zl-xqcxanuv left hip arthrosis. The pelvic ring overall appears intact. No dislocation. Soft tissues: No suspicious calcifications. IMPRESSION: No acute radiographic abnormality. Zknf-rv-ttmcmhgq left hip arthrosis. If there is high concern for further derangement, consider MRI evaluation. Postsurgical changes partially seen at the right hip and femur. Dictated by: Huang Baptiste M.D. on 05/29/2023 at 12:58 Approved by: Huang Baptiste M.D. on 05/29/2023 at 13:00
== END ==
PROVIDERS: PCP Internal Medicine; Referring Provider Physician Assistant; Visit Provider Physician Assistant
DX: M16.12 Unilateral primary osteoarthritis, left hip (principal); M17.11 Unilateral primary osteoarthritis, right knee; M25.552 Pain in left hip; M25.561 Pain in right knee; M25.562 Pain in left knee; G89.29 Other chronic pain; Z98.890 Other specified postprocedural states
CPT/HCPCS: 73502; 73560

== ENCOUNTER → 2024-02-24 11:46 | Outpatient (CLI) | payer OTHER, SELFPAY ==
[2021-08-25 23:17] VITALS: BMI 22.6
--- NOTE | 2024-02-24 11:49 | DI.RAD.S_ITS ---
PROCEDURE: XR FOOT LT MIN 3V INDICATIONS: Pain in left foot TECHNIQUE: 3 views of the foot were acquired. COMPARISON: [facility], CR, XR FOOT RT MIN 3V, 10/01/2021, 10:19. FINDINGS: Bones: No fractures or dislocations. No suspicious bony lesions. Mild hallux valgus deformity with 1st MTP narrowing. There is scattered moderate diffuse IP narrowing. No erosions. Minimally displaced fracture at the distal aspect of the 2nd proximal phalanx is present. Soft tissues: No tibiotalar joint effusion. Achilles tendon appears normal. IMPRESSION: Subacute appearing mildly displaced fracture at the distal 2nd phalanx. Dictated by: Francine Vargas M.D. on 02/24/2024 at 17:14 Approved by: Francine Vargas M.D. on 02/24/2024 at 17:15
== END ==
LOC: RAD 11:47
PROVIDERS: PCP Physician Assistant; Referring Provider Internal Medicine; Visit Provider Internal Medicine
DX: S92.532A Displaced fracture of distal phalanx of left lesser toe(s), initial encounter for closed fracture (principal); M79.672 Pain in left foot; W19.XXXA Unspecified fall, initial encounter
CPT/HCPCS: 73630

== ENCOUNTER 2025-04-06 09:35 | Observation (INO) | payer MEDICARE, SELFPAY ==
[2021-08-25 23:17] VITALS: BMI 22.6
[2025-04-06] VITALS (14 sets, daily range): BP systolic 157–203; BP diastolic 75–98; PULSE 79–110; RESP 12–24; TEMP 36.4–36.8; O2SAT 97–100; BMI 24.4
--- NOTE | 2025-04-06 10:00 | ED.NEUROSD ---
HPI - Neuro Symptoms/Deficit General Chief Complaint: Neuro Symptoms/Deficit Stated Complaint: new onset double vision, headache x1 week Time Seen by Provider: 04/06/25 09:51 Source: patient Mode of arrival: Wheelchair History of Present Illness HPI Narrative: This is a 74-year-old female with a history of type 2 diabetes and a history of DVT after a femur fracture. Patient is not presently anticoagulated and so she actively he is being treated for kidney stones. She says that she has had a headache for about a week. It is associated with nausea and diplopia. The diplopia cnvx-cw-ebyj and does not resolve completely when she closes 1 eye. Onset of the headache was described as severe but not thunderclap. No history of stroke or TIA. On Anticoagulants: No Related Data Home Medications ?Medication ?Instructions ?Recorded ?Confirmed levothyroxine 25 mcg tablet 12.5 mcg PO DAILY@0600 04/06/25 04/06/25 (Synthroid) trazodone 100 mg tablet 100 mg PO ONCE PM 04/06/25 04/06/25 Previous Rx's ?Medication ?Instructions ?Recorded aspirin 81 mg tablet,delayed 81 mg PO BID #10 tabs 08/29/21 release insulin glargine 100 unit/mL (3 10 unit (0.1 mL) SUBCUT 2100 #15 mL 08/29/21 mL) subcutaneous pen (Lantus Solostar U-100 Insulin) metoprolol tartrate 25 mg tablet 25 mg PO BID #10 tabs 08/29/21 oxycodone 5 mg tablet 5 mg PO Q3HR PRN Pain, Moderate 08/29/21 (4-6) #30 tabs polyethylene glycol 3350 17 gram 17 gm PO DAILY #10 ea 08/29/21 oral powder packet apixaban 5 mg (74 tabs) tablets in See Rx Instructions PO .COMPLEX 10/01/21 a dose pack (Eliquis DVT-PE Treat #74 ea 30D Start) oxycodone 5 mg tablet 5 mg PO Q6H PRN pain #14 tabs 02/18/22 tamsulosin 0.4 mg capsule (Flomax) 0.4 mg PO DAILY #10 caps 02/18/22 ketorolac 10 mg tablet 10 mg PO Q6H PRN pain #14 tabs 04/25/22 Allergies Allergy/AdvReac Type Severity Reaction Status Date / Time cephalexin (From Keflex) Allergy Unknown Verified 04/06/25 09:46 naproxen Allergy Unknown Verified 04/06/25 09:46 gabapentin AdvReac Severe Agitated Verified 04/06/25 09:46 Review of Systems Hematologic/Lymphatic On Anticoagulants: No Patient History Medical History History of fracture of foot Kidney stones Surgical History Hx of section Hx of tubal ligation History of right hip replacement Hx of hysterectomy Family History Mother Diabetes mellitus Osteoporosis Father Medical history unknown Social History household members: spouse Smoking Status: Never smoker alcohol intake: never Smoking Status: Never smoker alcohol intake frequency: 0-2 drinks per day Exam Initial Vital Signs Initial Vital Signs: Vital Signs Temperature 97.6 F 04/06/25 09:46 Pulse Rate 110 H 04/06/25 09:46 Respiratory Rate 17 04/06/25 09:46 Blood Pressure 188/96 H 04/06/25 09:46 Pulse Oximetry 97 04/06/25 09:46 Oxygen Delivery Method Room Air 04/06/25 09:46 Pleasant elderly female alert and oriented noted to be tachycardic and hypertensive. Normocephalic atraumatic pupils are equal and reactive, there is medial deviation of the left eye compared to the right she has some nystagmus. No facial droop or asymmetry, tongue protrudes to midline Ataxia in the upper extremities bilaterally Motor and distal light touch sensation are intact Speech is fluent Neck is supple without carotid bruit Lungs are clear Cardiac regular rhythm and rate no murmur rub or gallop Course Orders Ordered: ED Orders 04/06/25 09:45 Complete Blood Count AUTO DIFF Stat Comprehensive Metabolic Panel Stat Ethanol (ETOH) Stat PTT Partial Thromboplastin Errol Stat Prothrombin Time INR Stat Troponin & CK Cardiac Panel Stat 04/06/25 10:03 CT angio head and neck Stat CT head/brain wo con Stat Urine Drug Screen, Rapid Stat EKG-12 Lead Stat 04/06/25 10:45 MR head/brain wo con Stat Acetaminophen (Acetaminophen 325 Mg Tablet) 650 mg PO Q6H PRN PRN Reason: Fever/Mild Pain (1-3) Last Admin: 04/06/25 16:07 Dose: 650 mg Documented By: DEQUAN Heparin Sodium (Porcine) (Heparin 5,000 Unit/Ml Vial) 5,000 unit SUBCUT BID ALLEY Hydromorphone HCl (Hydromorphone Hcl 0.5 Mg/0.5 Ml Syringe) 0.5 mg IV Q2H PRN PRN Reason: Pain, Severe (7-10) Sodium Chloride (Normal Saline 0.9%) 1,000 mls @ 100 mls/hr IV CONT ALLEY Last Admin: 04/06/25 16:07 Dose: 100 mls/hr Documented By: DEQUAN Dextrose (D10w) 100 mls @ 999 mls/hr IV PRN PRN PRN Reason: Hypoglycemia Insulin Glargine (Insulin Glargine 100 Unit/Ml 3ml Pen) 10 unit SUBCUT 2100 ALLEY Insulin Human Lispro (Insulin Lispro 100 Unit/Ml 3ml Vial) 0 unit SUBCUT ACHS COUNTS INCLUDE 234 BEDS AT THE [facility]; Protocol Naloxone HCl (Naloxone 0.4 Mg/Ml Vial) 0.2 mg IV Q2MIN PRN PRN Reason: Opiate Reversal Ondansetron HCl (Ondansetron 4 Mg/2 Ml Inj) 4 mg IV Q8HR PRN PRN Reason: Nausea And Vomiting Oxycodone HCl (Oxycodone Ir 5 Mg Tablet) 5 mg PO Q3H PRN PRN Reason: Pain, Moderate (4-6) Last Admin: 04/06/25 16:08 Dose: 5 mg Documented By: DEQUAN Discontinued Medications Sodium Chloride (Normal Saline 0.9%) 1,000 mls @ 1,000 mls/hr IV BOLUS ONE Stop: 04/06/25 11:42 Last Infusion: 04/06/25 12:37 Dose: Infused Documented By: Admin: 04/06/25 10:58 Dose: 1,000 mls/hr Documented By: KOLBY Insulin Human Regular (Insulin Regular 100 Unit/Ml 3 Ml Vial) 4 unit SUBCUT NOW ONE Stop: 04/06/25 10:45 Last Admin: 04/06/25 11:00 Dose: 4 unit Documented By: KOLBY Co-signed By: NATANAEL Lorazepam (Lorazepam 0.5 Mg Tablet) 0.5 mg PO NOW ONE Stop: 04/06/25 10:59 Last Admin: 04/06/25 13:00 Dose: 0.5 mg Documented By: RLC Consultations Consultation #1: Case discussed with Dr. Suazo hospitalist who accepted admission Vital Signs Vital signs: Vital Signs - 8 hr 04/06/25 09:46 04/06/25 09:47 04/06/25 10:00 Temperature 97.6 F Pulse Rate 110 H 96 H 101 H Respiratory Rate 17 Blood Pressure 188/96 H Pulse Oximetry 97 98 100 Oxygen Delivery Method Room Air 04/06/25 10:23 04/06/25 10:23 04/06/25 10:30 Temperature Pulse Rate 85 85 Respiratory Rate 15 12 Blood Pressure 203/88 H Pulse Oximetry 99 98 Oxygen Delivery Method 04/06/25 10:30 04/06/25 11:00 04/06/25 11:00 Temperature Pulse Rate 87 Respiratory Rate 15 Blood Pressure 178/75 H 192/90 H Pulse Oximetry 97 Oxygen Delivery Method Room Air 04/06/25 11:30 04/06/25 11:30 04/06/25 12:00 Temperature Pulse Rate 81 81 Respiratory Rate 24 14 Blood Pressure 183/83 H Pulse Oximetry 100 100 Oxygen Delivery Method 04/06/25 12:00 Temperature Pulse Rate Respiratory Rate Blood Pressure 184/84 H Pulse Oximetry Oxygen Delivery Method MDM - Neuro Symptoms/Deficit Lab Data Lab results narrative: CMP notable for hyperglycemia, normal anion gap, CBC with diff is unremarkable 04/06/25 09:45 04/06/25 09:45 Labs: Lab Results 04/06/25 04/06/25 04/06/25 Range/Units 09:40 09:45 11:41 WBC 6.3 (4.5-11.0) X10^3/uL RBC 5.18 (4.0-5.2) X10^6/uL Hgb 15.0 (12.0-16.0) g/dL Hct 44.2 (36-46) % MCV 85.4 (80-100) fL MCH 29.0 (26-34) PG MCHC 33.9 (30-36) % RDW 12.9 (11.6-14.8) % Plt Count 274 (150-400) X10^3/uL Neut % (Auto) 66.2 (50-75) % Lymph % (Auto) 26.5 (25-40) % Crisp % (Auto) 5.8 (3-14) % Eos % (Auto) 0.8 L (2-4) % Baso % (Auto) 0.7 (0-2) % Neut # (Auto) 4100 (6821-6644) /uL Lymph # (Auto) 1700 (8976-8534) /uL Crisp # (Auto) 400 (0-900) /uL Eos # (Auto) 0 (0-450) /uL Baso # (Auto) 0 (0-100) /uL PT 10.4 (9.4-12.5) SECONDS INR 0.9 (0.9-1.3) APTT 26 (25.1-36.5) SECONDS Sodium 133 L (137-145) mmol/L Potassium 4.3 (3.4-5.1) mmol/L Chloride 96 L (98-107) mmol/L Carbon Dioxide 27 (22-32) mmol/L BUN 19 H (7-17) mg/dL Creatinine 0.85 (0.52-1.04) mg/dL Estimated GFR > 60 (>60) mL/min BUN/Creatinine Ratio 22.4 H (6-22) Glucose 523 H* (70-99) mg/dL POC Whole Bld Glucose > 500 H* > 500 H* (70-99) mg/dL Calcium 9.0 (8.4-10.2) mg/dL Total Bilirubin 0.3 (0.2-1.3) mg/dL AST 28 (14-36) IU/L ALT 24 (<35) IU/L Alkaline Phosphatase 203 H (38-126) U/L Total Creatine Kinase 277 H (30-135) U/L Troponin I < 0.012 (0.01-0.034) ng/mL Total Protein 7.7 (6.3-8.2) g/dL Albumin 4.6 (3.5-5.0) g/dL Globulin 3.1 (1.7-4.1) g/dL Albumin/Globulin Ratio 1.5 (1.0-2.8) Ethyl Alcohol < 10 (<10) mg/dL Imaging Data CT scan - head: My Impression: CT head, no acute finding Radiologist's Impression: Radiology report reviewed, no acute finding CT angiogram head and neck: Radiologist's Impression: [address] [address] [address] Scan Report Signed Patient: Maria T Vang MR#: [id number] : 1950 Acct:[id number] Age/Sex: 74 / F Date of Service: 04/06/25 Loc: ED Accession Number: [id number] Procedure: CT angio head and neck Ordering Provider: Himanshu Garcia MD PROCEDURE: CT ANGIO HEAD AND NECK INDICATIONS: Headache new onset, diplopia TECHNIQUE: After the administration of intravenous contrast, 1 mm thick sections acquired from the aortic arch through the [place] of [place]. 3-dimensional uodcmxm-iwbbpxfta-qqsczjgfle (MIP) and/or volume rendering reformats were acquired of the central intracranial vasculature and neck separately. For radiation dose reduction, the following was used: automated exposure control, adjustment of mA and/or kV according to patient size. COMPARISON: None. FINDINGS: Image quality: Diagnostic. Cerebral CT Angiogram: Internal carotid arteries: No acute findings. Intracranial ICA are patent with no significant stenosis. No occlusion. No aneurysm. Anterior cerebral arteries: Unremarkable. No significant stenosis. No occlusion. No aneurysm. Middle cerebral arteries: Unremarkable. No significant stenosis. No occlusion. No aneurysm. Posterior cerebral arteries: Unremarkable. No significant stenosis. No occlusion. No aneurysm. Basilar artery: Unremarkable. No significant stenosis. No occlusion. No aneurysm. Vertebral arteries: Unremarkable as visualized. Dural venous sinuses: Unremarkable given phase of enhancement. Other: Arterial phase appearance of the brain parenchyma is unremarkable. Neck CT Angiogram: Internal carotid arteries: Tyor-ws-kkwdcppy amount of atherosclerotic calcifications are noted involving origins of bilateral internal carotid arteries with less than 50% stenosis. No dissection or occlusion. Common carotid arteries: Unremarkable. No significant stenosis. No dissection or occlusion. External carotid arteries: Unremarkable. No occlusion. Vertebral arteries: Unremarkable. No significant stenosis. No dissection or occlusion. Aortic Arch and Mediastinum: Partially visualized aortic arch unremarkable without evidence of aneurysm. Origins of the great vessels unremarkable. Other: Arterial phase soft tissues of the neck and chest are unremarkable. IMPRESSION: 1. No significant intracranial arterial abnormality is seen. 2. Sqzm-xz-qskxbadl atherosclerotic calcifications involving origins of bilateral internal carotid arteries with less than 50% stenosis. 3. No hemodynamically significant stenosis is seen within the arteries of the neck.>> Any quantitative measurements of stenosis were performed using NASCET criteria. Dictated by: Nazario Claros M.D. on 04/06/2025 at 10:39 Approved by: Nazario Claros M.D. on 04/06/2025 at 10:41 ECG Data Attestation: I personally reviewed and interpreted this ECG as follows: (Normal sinus rhythm at 85, normal EKG) MDM Narrative Medical decision making narrative: 74-year-old female type 2 diabetic presenting with diplopia and hyperglycemia. She is also complaining of a headache. I am concerned about the possibility of a stroke, also was concerned about the possibility of intracranial hemorrhage although imaging today does not suggest hemorrhage or aneurysm. Definitely has a dysconjugate gaze and some nystagmus, I am concerned for a posterior fossa stroke. She was given IV fluids and insulin, she will be admitted to the hospice service for further workup Discharge Plan Departure Patient Disposition: Admitted As Inpatient Clinical Impression: Acute CVA (cerebrovascular accident) Hyperglycemia due to type 2 diabetes mellitus Qualifiers: Diabetes mellitus group home insulin use: with group home use Qualified Code(s): E11.65 - Type 2 diabetes mellitus with hyperglycemia Admit Date/Time: 04/06/25 12:25 Admit Provider: Mayank Suazo
--- NOTE | 2025-04-06 10:03 | EKG_ITS ---
[address] [address] Test Date: 2025-04-06 Pat Name: Maria T Vaughn Department: [facility] Room: Gender: Female Job Hand: DAVID : 1950 Requested By: Order Number: [id number] Reading MD: Kyle Adams MD Measurements Intervals [place] Rate: 85 P: 69 VT: 164 QRS: -4 QRSD: 86 T: 52 QT: 368 QTc: 437 Interpretive Statements Normal sinus rhythm Electronically Signed On 04-06-2025 12:01:34 PST by Kyle Adams MD
--- NOTE | 2025-04-06 10:03 | DI.CT.S_ITS ---
PROCEDURE: CT ANGIO HEAD AND NECK INDICATIONS: Headache new onset, diplopia TECHNIQUE: After the administration of intravenous contrast, 1 mm thick sections acquired from the aortic arch through the [place] of [place]. 3-dimensional ylxxzlf-zatjucfee-ioqokfqqpp (MIP) and/or volume rendering reformats were acquired of the central intracranial vasculature and neck separately. For radiation dose reduction, the following was used: automated exposure control, adjustment of mA and/or kV according to patient size. COMPARISON: None. FINDINGS: Image quality: Diagnostic. Cerebral CT Angiogram: Internal carotid arteries: No acute findings. Intracranial ICA are patent with no significant stenosis. No occlusion. No aneurysm. Anterior cerebral arteries: Unremarkable. No significant stenosis. No occlusion. No aneurysm. Middle cerebral arteries: Unremarkable. No significant stenosis. No occlusion. No aneurysm. Posterior cerebral arteries: Unremarkable. No significant stenosis. No occlusion. No aneurysm. Basilar artery: Unremarkable. No significant stenosis. No occlusion. No aneurysm. Vertebral arteries: Unremarkable as visualized. Dural venous sinuses: Unremarkable given phase of enhancement. Other: Arterial phase appearance of the brain parenchyma is unremarkable. Neck CT Angiogram: Internal carotid arteries: Lykp-si-qmmehrik amount of atherosclerotic calcifications are noted involving origins of bilateral internal carotid arteries with less than 50% stenosis. No dissection or occlusion. Common carotid arteries: Unremarkable. No significant stenosis. No dissection or occlusion. External carotid arteries: Unremarkable. No occlusion. Vertebral arteries: Unremarkable. No significant stenosis. No dissection or occlusion. Aortic Arch and Mediastinum: Partially visualized aortic arch unremarkable without evidence of aneurysm. Origins of the great vessels unremarkable. Other: Arterial phase soft tissues of the neck and chest are unremarkable. IMPRESSION: 1. No significant intracranial arterial abnormality is seen. 2. Umcc-fk-xihupknx atherosclerotic calcifications involving origins of bilateral internal carotid arteries with less than 50% stenosis. 3. No hemodynamically significant stenosis is seen within the arteries of the neck.>> Any quantitative measurements of stenosis were performed using NASCET criteria. Dictated by: Nazario Claros M.D. on 04/06/2025 at 10:39 Approved by: Nazario Claros M.D. on 04/06/2025 at 10:41
--- NOTE | 2025-04-06 10:03 | DI.CT.S_ITS ---
PROCEDURE: CT HEAD/BRAIN WO CON INDICATIONS: Headache new onset TECHNIQUE: Noncontrast 4.5 mm thick angled axial sections acquired from the foramen magnum to the vertex, with coronal and sagittal reformats. For radiation dose reduction, the following was used: automated exposure control, adjustment of mA and/or kV according to patient size. COMPARISON: None. FINDINGS: Image quality: Diagnostic. CSF spaces: Basal cisterns are patent. No extra-axial fluid collections. The ventricles are symmetric in size and shape. Brain: No intracranial bleeds or mass effect. There is cerebral volume loss, with resultant ventricular and sulcal prominence. There are periventricular and deep white matter chronic small vessel ischemic changes. There is intracranial internal carotid artery atherosclerosis. Skull and face: Calvarium and visualized facial bones appear intact, without suspicious lesions. Sinuses: Visualized sinuses and mastoids are clear. IMPRESSION: No acute intracranial pathology. Age related volume loss and mild white matter small vessel chronic ischemic changes. Dictated by: Nazario Claros M.D. on 04/06/2025 at 10:36 Approved by: Nazario Claros M.D. on 04/06/2025 at 10:37
[2025-04-06 10:14] LABS: Add Manual Diff / Slide Review NO; Hematocrit 44.2 % (36-46); Hemoglobin 15.0 g/dL (12.0-16.0); Lymphocytes Absolute Auto 1700 /uL (1100-4500); Mean Corpuscular HGB Conc 33.9 % (30-36); Mean Corpuscular Hemoglobin 29.0 PG (26-34); Mean Corpuscular Volume 85.4 fL (80-100); Platelet Count 274 X10^3/uL (150-400)
[2025-04-06 10:17] LABS: INR 0.9 (0.9-1.3); Prothrombin Time 10.4 SECONDS (9.4-12.5)
[2025-04-06 10:20] LABS: Alanine Aminotransferase 24 IU/L (<35); Albumin 4.6 g/dL (3.5-5.0); Albumin Globulin Ratio 1.5 (1.0-2.8); Alkaline Phosphatase 203 U/L (38-126); Blood Urea Nitrogen 19 mg/dL (7-17); Calcium 9.0 mg/dL (8.4-10.2); Carbon Dioxide 27 mmol/L (22-32); Chloride 96 mmol/L (98-107); Creatine Kinase 277 U/L (30-135); Estimated Glomerular Filt Rate > 60 mL/min (>60); Ethanol (ETOH) < 10 mg/dL (<10); Globulin 3.1 g/dL (1.7-4.1); HEMOLYSIS < 15 (0-50); PTT Partial Thromboplastin Tim 26 SECONDS (25.1-36.5); Potassium 4.3 mmol/L (3.4-5.1); Sodium 133 mmol/L (137-145); Total Protein 7.7 g/dL (6.3-8.2)
[2025-04-06 10:21] LABS: Glucose 523 mg/dL (70-99)
[2025-04-06 10:31] LABS: Troponin I < 0.012 ng/mL (0.01-0.034)
--- NOTE | 2025-04-06 10:45 | DI.MRI.S_ITS ---
PROCEDURE: MR HEAD/BRAIN WO CON INDICATIONS: stroke suspected TECHNIQUE: Non-contrast axial T1 spin echo, axial T2 fast spin echo, sagittal and axial FLAIR, coronal T2 fast spin echo, axial gradient echo, axial diffusion and ADC through the brain. COMPARISON: [facility], CT, CT HEAD/BRAIN WO CON, 04/06/2025, 10:15. FINDINGS: Image quality: Excellent. CSF spaces: Ventricles appear symmetric in size and shape. Basal cisterns are patent. No extra-axial fluid collections. Brain: No intracranial bleeds or mass effects. There is cerebral volume loss for age. There are age-appropriate koim-ul-dbaowgzq periventricular and deep white matter chronic small vessel ischemic changes. Brainstem appears normal. Diffusion-weighted images show no acute infarct. No chronic ischemic insults. Normal intravascular flow voids are present. Skull and face: Calvarial bone marrow is normal in signal. Orbits are normal. Sinuses: Sinuses and mastoids are clear. IMPRESSION: Age-appropriate qwcx-mk-xvvplexp small vessel ischemic change. No acute intracranial process. Dictated by: Scar Dowell M.D. on 04/06/2025 at 14:42 Approved by: Scar Dowell M.D. on 04/06/2025 at 14:44
[2025-04-06] MEDS: SODIUM CHLORIDE 0.9% 1,000 ML 1000 ML IV (10:58)
[2025-04-06] MEDS: INSULIN REGULAR 100 UNIT/ML 3 ML VIAL SUBCUT (11:00)
--- NOTE | 2025-04-06 15:10 | PC.NURSE ---
Pt arrived from ED at 1315, able to transfer from stretcher to bed SBA. A&Ox4, hypertensive in the 180s, MD aware, otherwise VSS on RA. C/o headache 6/10, double vision. Lung sounds CTA, bowel sounds present. Pt oriented to room and call light. Bed in low position, call light within reach, bed alarm activated.
[2025-04-06] MEDS: SODIUM CHLORIDE 0.9% 1,000 ML 100 ML IV (16:07)
[2025-04-06] MEDS: ACETAMINOPHEN 325 MG TABLET 650 MG PO (16:07)
[2025-04-06] MEDS: INSULIN LISPRO 100 UNIT/ML 3ML VIAL SUBCUT ×2 (17:12→20:30)
--- NOTE | 2025-04-06 17:50 | PM.HP.1 ---
History of Present Illness <Savi Anton - Last Filed: 04/06/25 17:55> History of Present Illness Date Patient Seen: 04/06/25 Chief complaint: new onset double vision, headache x1 week Narrative: CC: Headache and diplopia HPI:? 74-year-old female with history of type 2 diabetes and history of DVT after femur fracture presents with 7 days of severe headache associated with nausea and diplopia. The diplopia is described as espi-gm-hipo double vision that does not resolve completely when she closes one eye. Onset of headache was severe but not thunderclap. Patient reports the headache is now localized to the right side of her head but was previously generalized. The double vision was initially very strong and she couldn't focus at all. No history of headaches or migraines. No history of stroke or TIA. Patient has been taking oxycodone for three years for leg pain and has been taking oxycodone with trazodone as usual, which has not helped the headache. Reports being tired and unsteady on her feet since hip replacement and foot fracture, but not more so than usual. Uses ice packs on feet at night due to pins and needles sensation since foot fracture. Patient admits to medication non-adherence: did not take insulin last night thinking it might be causing headache, reduced insulin from prescribed 20 units to 10 units due to hot flashes, takes half of prescribed levothyroxine dose. ? Medical Hx: T2DM Hypothyroid High cholesterol Hx femur fracture August 25, 2021 History of fracture of foot x2 Kidney stones Osteoarthritis, right shoulder Osteoporosis Hx DVT Hx foot sores that weren't healing ? Surgical Hx: Hx of section Hx of tubal ligation History of right hip replacement Hx of hysterectomy Hx surgical repair of femur ? Medications: Insulin glargine (Besaglar) Levothyroxine Oxycodone Trazodone ? Allergies: cephalexin, naproxen, gabapentin Social Hx: Lives with spouse Tejinder. Retired from [employer] in [facility] [employer]. Has parakeets (Ms. Day and Mr. Bonilla). Never smoked, never drinks alcohol, no coffee, no other substances. Family Hx: Mother: Diabetes mellitus, Osteoporosis. 2023. Father: Medical history unknown ? ROS: negative other than as noted in HPI ? Imaging/EC/[address] IMPRESSION: No acute intracranial pathology. Age related volume loss and mild white matter small vessel chronic ischemic changes. ? 04/06 Head/Neck CTA IMPRESSION: 1. No significant intracranial arterial abnormality is seen. 2. Laob-vk-kbyihcxx atherosclerotic calcifications involving origins of bilateral internal carotid arteries with less than 50% stenosis. 3. No hemodynamically significant stenosis is seen within the arteries of the neck ? 04/06 Brain MRI IMPRESSION: Age-appropriate tctd-bo-ehrcvsfm small vessel ischemic change. No acute intracranial process. ? 04/06 ECG Interpretive Statements: Normal sinus rhythm ? Labs reviewed and notable for: CBC WNL Coag WNL Troponin WNL Protein WNL Low: Sodium (133), chloride (96) High: BUN (19), BUN/Creatinine Ratio (22.4), Glucose (523 at 12:42, then 279 at 14:53), alkphos (203), CK 277 ? Vitals reviewed and notable for: BP: 188/96, 203/88, 178/75, 192/90, 183/83, 184/84 HR: 110, 96, 101 All other vitals WNL ? Physical Exam: GEN: Alert and oriented X4. No acute distress. Well-nourished. Fluent speech. Appears worried. EYES: PERRL. Disconjugate gaze with some horizontal nystagmus, right eye doesn't appear to abduct past midline. HENT: Moist mucus membranes, no conjunctival injection or icterus, normal neck ROM. No facial droop or asymmetry, tongue protrudes to midline RESP: CTAB, normal work of breathing, no cyanosis appreciated. CV: No peripheral edema, RRR. ABD: Soft, non-tender, non-distended, no palpable masses. EXT: No edema, clubbing or cyanosis. SKIN: No rashes or lesions. NEURO: No focal neurologic deficits. PSYCH: Cooperative, appropriate mood and affect. ? A/P: 74-year-old female with poorly controlled type 2 diabetes, medication non-adherence, and hypertension presenting with acute onset headache and diplopia now admitted for workup of symptoms. Laboratory findings reveal severe hyperglycemia with glucose of 523 mg/dL, mild hyponatremia, and elevated alkaline phosphatase. Imaging studies including head CT, CTA, and MRI show no acute intracranial pathology but reveal chronic small vessel ischemic changes and mild carotid atherosclerosis. Physical examination notable for disconjugate gaze with horizontal nystagmus and apparent right sixth cranial nerve palsy with inability to abduct right eye past midline. ? #Headache and Diplopia Acute onset headache with diplopia in 74-year-old female with multiple vascular risk factors. Physical examination reveals apparent sixth cranial nerve palsy. Initial imaging negative for acute intracranial pathology. -ESR and CRP to evaluate for giant cell arteritis given age >50 years -Repeat neurological examination to monitor for progression -Acetaminophen 650 mg PO Q6 hours PRN -Hydromorphone 0.5 mg IV Q2 hours PRN -Ophthalmology and neurology consultation for formal evaluation of diplopia and cranial nerve function -Blood pressure management per hypertension guidelines -Consider lumbar puncture to evaluate for intracranial hypertension ? #Poorly Controlled Type 2 Diabetes Mellitus Severe hyperglycemia with glucose 523 mg/dL in setting of medication non-adherence. Patient self-reduced insulin dose and missed doses. -Hemoglobin A1c -Daily BMP, CBC -Consider urine ketones to rule out ketoacidosis -Monitor blood glucose every 6 hours -Resume appropriate insulin dosing -Diabetes education regarding importance of medication adherence ? # Hypertension Persistently elevated blood pressures with systolic readings >180 mmHg and diastolic >90 mmHg. -Monitor blood pressure -Start Lisinopril 5 mg PO daily -Target blood pressure <130/80 mmHg for secondary prevention ? # Hypothyroidism -TSH and Free T4 -Patient admits to taking half of prescribed levothyroxine dose, medication adherence counseling ? # History of DVT -Patient not on anticoagulation despite indication due to kidney stones ? # Osteoarthritis and Chronic Pain -Continue current pain management with oxycodone ? DVT Prophylaxis: Heparin Sq ? Code Status: Full code ? Disposition: Discharge to home likely tomorrow once hyperglycemia is stabilized, medication adherence is addressed, and rule out giant cell arteritis. Follow up with PCP. <Mayank Suazo MD - Last Filed: 04/06/25 18:33> History of Present Illness Narrative: CC: Headache and diplopia HPI:? 74-year-old female with history of type 2 diabetes and history of DVT after femur fracture presents with 7 days of severe headache associated with nausea and diplopia. The diplopia is described as eezu-wu-pimy double vision that does not resolve completely when she closes one eye. Onset of headache was severe but not thunderclap. Patient reports the headache is now localized to the right side of her head but was previously generalized. The double vision was initially very strong and she couldn't focus at all. No history of headaches or migraines. No history of stroke or TIA. Patient has been taking oxycodone for three years for leg pain and has been taking oxycodone with trazodone as usual, which has not helped the headache. Reports being tired and unsteady on her feet since hip replacement and foot fracture, but not more so than usual. Uses ice packs on feet at night due to pins and needles sensation since foot fracture. Patient admits to medication non-adherence: did not take insulin last night thinking it might be causing headache, reduced insulin from prescribed 20 units to 10 units due to hot flashes, takes half of prescribed levothyroxine dose. ? Medical Hx: T2DM Hypothyroid High cholesterol Hx femur fracture August 25, 2021 History of fracture of foot x2 Kidney stones Osteoarthritis, right shoulder Osteoporosis Hx DVT Hx foot sores that weren't healing ? Surgical Hx: Hx of section Hx of tubal ligation History of right hip replacement Hx of hysterectomy Hx surgical repair of femur ? Medications: Insulin glargine (Besaglar) Levothyroxine Oxycodone Trazodone ? Allergies: cephalexin, naproxen, gabapentin Social Hx: Lives with spouse Retired from [employer] in [facility] [facility]. Has parakeets (Ms. Day and Mr. Bonilla). Never smoked, never drinks alcohol, no coffee, no other substances. Family Hx: Mother: Diabetes mellitus, Osteoporosis. 2023. Father: Medical history unknown ? ROS: negative other than as noted in HPI ? Imaging/EC/[address] IMPRESSION: No acute intracranial pathology. Age related volume loss and mild white matter small vessel chronic ischemic changes. ? 04/06 Head/Neck CTA IMPRESSION: 1. No significant intracranial arterial abnormality is seen. 2. Hpun-db-zbhtrzth atherosclerotic calcifications involving origins of bilateral internal carotid arteries with less than 50% stenosis. 3. No hemodynamically significant stenosis is seen within the arteries of the neck ? 04/06 Brain MRI IMPRESSION: Age-appropriate uhol-rc-xkisgbka small vessel ischemic change. No acute intracranial process. ? 04/06 ECG Interpretive Statements: Normal sinus rhythm ? Labs reviewed and notable for: CBC WNL Coag WNL Troponin WNL Protein WNL Low: Sodium (133), chloride (96) High: BUN (19), BUN/Creatinine Ratio (22.4), Glucose (523 at 12:42, then 279 at 14:53), alkphos (203), CK 277 ? Vitals reviewed and notable for: BP: 188/96, 203/88, 178/75, 192/90, 183/83, 184/84 HR: 110, 96, 101 All other vitals WNL ? Physical Exam: GEN: Alert and oriented X4. No acute distress. Well-nourished. Fluent speech. Appears worried. EYES: PERRL. Disconjugate gaze with some horizontal nystagmus, right eye doesn't appear to abduct past midline. HENT: Moist mucus membranes, no conjunctival injection or icterus, normal neck ROM. No facial droop or asymmetry, tongue protrudes to midline RESP: CTAB, normal work of breathing, no cyanosis appreciated. CV: No peripheral edema, RRR. ABD: Soft, non-tender, non-distended, no palpable masses. EXT: No edema, clubbing or cyanosis. SKIN: No rashes or lesions. NEURO: No focal neurologic deficits. PSYCH: Cooperative, appropriate mood and affect. ? A/P: 74-year-old female with poorly controlled type 2 diabetes, medication non-adherence, and hypertension presenting with acute onset headache and diplopia now admitted for workup of symptoms. Laboratory findings reveal severe hyperglycemia with glucose of 523 mg/dL, mild hyponatremia, and elevated alkaline phosphatase. Imaging studies including head CT, CTA, and MRI show no acute intracranial pathology but reveal chronic small vessel ischemic changes and mild carotid atherosclerosis. Physical examination notable for disconjugate gaze with horizontal nystagmus and apparent right sixth cranial nerve palsy with inability to abduct right eye past midline. ? #Headache and Diplopia Acute onset headache with diplopia in 74-year-old female with multiple vascular risk factors. Physical examination reveals apparent sixth cranial nerve palsy. Initial imaging negative for acute intracranial pathology. -ESR and CRP to evaluate for giant cell arteritis given age >50 years -Repeat neurological examination to monitor for progression -Acetaminophen 650 mg PO Q6 hours PRN -Hydromorphone 0.5 mg IV Q2 hours PRN -Ophthalmology and neurology consultation for formal evaluation of diplopia and cranial nerve function -Blood pressure management per hypertension guidelines -Consider lumbar puncture to evaluate for intracranial hypertension ? #Poorly Controlled Type 2 Diabetes Mellitus Severe hyperglycemia with glucose 523 mg/dL in setting of medication non-adherence. Patient self-reduced insulin dose and missed doses. -Hemoglobin A1c -Daily BMP, CBC -Consider urine ketones to rule out ketoacidosis -Monitor blood glucose every 6 hours -Resume appropriate insulin dosing -Diabetes education regarding importance of medication adherence ? # Hypertension Persistently elevated blood pressures with systolic readings >180 mmHg and diastolic >90 mmHg. -Monitor blood pressure -Start Lisinopril 5 mg PO daily -Target blood pressure <130/80 mmHg for secondary prevention ? # Hypothyroidism -TSH and Free T4 -Patient admits to taking half of prescribed levothyroxine dose, medication adherence counseling ? # History of DVT -Patient not on anticoagulation despite indication due to kidney stones ? # Osteoarthritis and Chronic Pain -Continue current pain management with oxycodone ? DVT Prophylaxis: Heparin Sq ? Code Status: Full code ? Disposition: Discharge to home likely tomorrow once hyperglycemia is stabilized, medication adherence is addressed, and rule out giant cell arteritis. Follow up with PCP. AJ Additional: will discuss with neuro tomorrow to facilitate follow up. PFSH <Savi Anton - Last Filed: 04/06/25 17:55> Medical History History of fracture of foot Kidney stones Surgical History Hx of section Hx of tubal ligation History of right hip replacement Hx of hysterectomy Family History Mother Diabetes mellitus Osteoporosis Father Medical history unknown Social History marital status: household members: spouse lives independently: Yes pets and animals: Yes (Two parakeets, Mr. Bonilla and Ms. Day) Smoking Status: Never smoker alcohol intake: never Meds <Savi Anton - Last Filed: 04/06/25 17:55> Home Medications and Allergies Home Medications ?Medication ?Instructions ?Recorded ?Confirmed ?Type aspirin 81 mg tablet,delayed 81 mg PO BID #10 tabs 08/29/21 04/06/25 Rx release insulin glargine 100 unit/mL (3 10 unit (0.1 mL) SUBCUT 2100 #15 mL 04/05/22 11/11/25 Rx mL) subcutaneous pen (Lantus Solostar U-100 Insulin) metoprolol tartrate 25 mg tablet 25 mg PO BID #10 tabs 08/29/21 04/06/25 Rx oxycodone 5 mg tablet 5 mg PO Q3HR PRN Pain, Moderate 08/29/21 04/06/25 Rx (4-6) #30 tabs polyethylene glycol 3350 17 gram 17 gm PO DAILY #10 ea 08/29/21 04/06/25 Rx oral powder packet apixaban 5 mg (74 tabs) tablets in See Rx Instructions PO .COMPLEX 10/01/21 04/06/25 Rx a dose pack (Eliquis DVT-PE Treat #74 ea 30D Start) oxycodone 5 mg tablet 5 mg PO Q6H PRN pain #14 tabs 02/18/22 04/06/25 Rx tamsulosin 0.4 mg capsule (Flomax) 0.4 mg PO DAILY #10 caps 02/18/22 04/06/25 Rx ketorolac 10 mg tablet 10 mg PO Q6H PRN pain #14 tabs 04/25/22 04/06/25 Rx levothyroxine 25 mcg tablet 12.5 mcg PO DAILY@0600 04/06/25 04/06/25 History (Synthroid) trazodone 100 mg tablet 100 mg PO ONCE PM 04/06/25 04/06/25 History Allergies Allergy/AdvReac Type Severity Reaction Status Date / Time cephalexin (From [employer]) Allergy Unknown Verified 04/06/25 09:46 naproxen Allergy Unknown Verified 04/06/25 09:46 gabapentin AdvReac Severe Agitated Verified 04/06/25 09:46 Exam <Savi Risdon - Last Filed: 04/06/25 17:55> Vital Signs (past 8 hours): - 04/06/25 10:00 04/06/25 10:23 04/06/25 10:23 Temperature Pulse Rate 101 H 85 Respiratory Rate 15 Blood Pressure 203/88 H Pulse Oximetry 100 99 Oxygen Delivery Method Oxygen Flow Rate 04/06/25 10:30 04/06/25 10:30 04/06/25 11:00 Temperature Pulse Rate 85 Respiratory Rate 12 Blood Pressure 178/75 H 192/90 H Pulse Oximetry 98 Oxygen Delivery Method Oxygen Flow Rate 04/06/25 11:00 04/06/25 11:30 04/06/25 11:30 Temperature Pulse Rate 87 81 Respiratory Rate 15 24 Blood Pressure 183/83 H Pulse Oximetry 97 100 Oxygen Delivery Method Room Air Oxygen Flow Rate 04/06/25 12:00 04/06/25 12:00 04/06/25 12:30 Temperature Pulse Rate 81 79 Respiratory Rate 14 16 Blood Pressure 184/84 H Pulse Oximetry 100 99 Oxygen Delivery Method Oxygen Flow Rate 04/06/25 12:30 04/06/25 13:15 04/06/25 15:00 Temperature 98 F Pulse Rate 83 83 Respiratory Rate 16 Blood Pressure 184/84 H 181/96 H 178/91 H Pulse Oximetry 99 Oxygen Delivery Method Oxygen Flow Rate 0 04/06/25 16:00 04/06/25 16:00 Temperature 98.3 F Pulse Rate 89 Respiratory Rate 19 Blood Pressure 187/98 H 188/97 H Pulse Oximetry 97 Oxygen Delivery Method Oxygen Flow Rate 0 Oxygen Delivery Method Room Air Oxygen Flow Rate 0 Objective <Savi Anton - Last Filed: 04/06/25 17:55> Labs 04/06/25 09:45 04/06/25 09:45 Labs: Laboratory Results - last 24 hr 04/06/25 04/06/25 04/06/25 09:40 09:45 11:41 WBC 6.3 RBC 5.18 Hgb 15.0 Hct 44.2 MCV 85.4 MCH 29.0 MCHC 33.9 RDW 12.9 Plt Count 274 Neut % (Auto) 66.2 Lymph % (Auto) 26.5 [place] % (Auto) 5.8 Eos % (Auto) 0.8 L Baso % (Auto) 0.7 Neut # (Auto) 4100 Lymph # (Auto) 1700 [place] # (Auto) 400 Eos # (Auto) 0 Baso # (Auto) 0 PT 10.4 INR 0.9 APTT 26 Sodium 133 L Potassium 4.3 Chloride 96 L Carbon Dioxide 27 BUN 19 H Creatinine 0.85 Estimated GFR > 60 BUN/Creatinine Ratio 22.4 H Glucose 523 H* POC Whole Bld Glucose > 500 H* > 500 H* Calcium 9.0 Total Bilirubin 0.3 AST 28 ALT 24 Alkaline Phosphatase 203 H Total Creatine Kinase 277 H Troponin I < 0.012 Total Protein 7.7 Albumin 4.6 Globulin 3.1 Albumin/Globulin Ratio 1.5 Ethyl Alcohol < 10 04/06/25 04/06/25 04/06/25 12:42 14:53 16:41 WBC RBC Hgb Hct MCV MCH MCHC RDW Plt Count Neut % (Auto) Lymph % (Auto) [place] % (Auto) Eos % (Auto) Baso % (Auto) Neut # (Auto) Lymph # (Auto) [place] # (Auto) Eos # (Auto) Baso # (Auto) PT INR APTT Sodium Potassium Chloride Carbon Dioxide BUN Creatinine Estimated GFR BUN/Creatinine Ratio Glucose POC Whole Bld Glucose 387 H D 279 H D 291 H Calcium Total Bilirubin AST ALT Alkaline Phosphatase Total Creatine Kinase Troponin I Total Protein Albumin Globulin Albumin/Globulin Ratio Ethyl Alcohol Assessment & Plan <Savi Anton - Last Filed: 04/06/25 17:55> Time-Based Coding :: [TOTAL MINUTES] spent with patient and on the chart (including review of chart, obtaining history, exam, reviewing outside data, placing orders, documenting exam and treatment plan, and counseling patient) on [DATE]. <Mayank Suazo MD - Last Filed: 04/06/25 18:33> Time-Based Coding :: 35 min spent with patient and on the chart (including review of chart, obtaining history, exam, reviewing outside data, placing orders, documenting exam and treatment plan, and counseling patient) on 04/06. Quality <Savi Anton - Last Filed: 04/06/25 17:55> VTE Deep Vein Thrombosis/Pulmonary Embolism Present on Admission: No <Mayank Suazo MD - Last Filed: 04/06/25 18:33> MIPS - Admit I confirm the patient?s Advance Care Plan is present, Code status is documented, Surrogate decision maker is in patient?s record [If Yes, STOP here]: Yes MIPS - Meds I have utilized all available resources to obtain, update, or review the patient?s current medications. [If Yes, STOP here]: Yes
[2025-04-06] MEDS: INSULIN GLARGINE 100 UNIT/ML 3ML PEN 10 UNIT SUBCUT (20:28)
[2025-04-06 21:13] LABS: Hemoglobin A1C% w Est Avg Glu 13.4 % (4.0-6.0)
[2025-04-06 21:46] LABS: TSH w/ Reflex to FT4 2.41 uIU/mL (0.47-4.68)
[2025-04-07 01:00] VITALS: BP 112/75; PULSE 78; RESP 18; TEMP 36.3; O2SAT 99
[2025-04-07 05:00] VITALS: BP 138/80; PULSE 74; RESP 18; TEMP 36.3; O2SAT 98
[2025-04-07 05:29] LABS: Add Manual Diff / Slide Review NO; Hematocrit 37.9 % (36-46); Hemoglobin 12.8 g/dL (12.0-16.0); Lymphocytes Absolute Auto 1600 /uL (1100-4500); Mean Corpuscular HGB Conc 33.9 % (30-36); Mean Corpuscular Hemoglobin 28.8 PG (26-34); Mean Corpuscular Volume 85.0 fL (80-100); Platelet Count 237 X10^3/uL (150-400)
[2025-04-07 05:32] LABS: Blood Urea Nitrogen 17 mg/dL (7-17); Calcium 8.3 mg/dL (8.4-10.2); Carbon Dioxide 27 mmol/L (22-32); Chloride 103 mmol/L (98-107); Estimated Glomerular Filt Rate > 60 mL/min (>60); Glucose 234 mg/dL (70-99); HEMOLYSIS < 15 (0-50); Potassium 3.9 mmol/L (3.4-5.1); Sodium 135 mmol/L (137-145)
[2025-04-07] MEDS: LEVOTHYROXINE 25 MCG TABLET 12.5 MCG PO (06:25)
[2025-04-07 07:00] VITALS: BP 160/86; PULSE 73; RESP 16; TEMP 36.9; O2SAT 97
[2025-04-07] MEDS: INSULIN LISPRO 100 UNIT/ML 3ML VIAL SUBCUT ×2 (08:13→12:17)
[2025-04-07] MEDS: SODIUM CHLORIDE 0.9% FLUSH 10 ML IV (08:15)
[2025-04-07 11:27] VITALS: BP 171/87; PULSE 74; RESP 16; TEMP 37.4; O2SAT 98
[2025-04-07 11:50] LABS: Ur Specific Gravity NN (Normal); Urine Tetrahydrocannabinol Negative (Negative)
[2025-04-07 11:51] LABS: UR Morphine/Opiate cutoff 300 Negative (Negative); Urine MDMA Negative (Negative); Urine Methamphetamines Negative (Negative); Urine Tricyclic Antidepressant Negative (Negative)
--- NOTE | 2025-04-07 11:58 | PT.IIE ---
Addendum entered and electronically signed by Farida Phelps, PT 04/07/25 15:43: sent to Physician for signature on treatment plan Original Note: Surgical History (Last Reviewed 04/06/25 @ 18:32 by Mayank Suazo MD) History of right hip replacement Hx of section Hx of hysterectomy Hx of tubal ligation Medical History (Last Reviewed 04/06/25 @ 18:32 by Mayank Suazo MD) History of fracture of foot Kidney stones Physical Therapy Inpatient Evaluation/Re-Eval M1 PT IP Prior Functional Status Start: 04/07/25 13:44 Freq: NEEDED Status: Active Protocol: Document 04/07/25 11:58 DLM (Rec: 04/07/25 14:04 DLM Desktop) Medical Review Prior Functional Status Medical History Yes Reviewed Diet/Fluid Regular Consistency Communication WFL. She reports vision problems started about a week ago Mobility and Gait Independent without device. She has trouble walking on uneven surfaces including gravel due to feet/ankle weakness. Activities of Daily Independent Living and IADL's Prior Functional pet birds at home Level (Other details ) Social History Household Members spouse Living Arrangements House Number of Floors ( Two Floors Floors) Number of Stairs To 2 without rail Enter/Railing? Home Equipment Straight Cane Employment Status Retired M2 PT-IP Current Condition Start: 04/07/25 13:44 Freq: NEEDED Status: Active Protocol: Document 04/07/25 11:58 DLM (Rec: 04/07/25 14:04 DLM Desktop) Physical Therapy Current Condition Current Condition Evaluation Date 04/07/25 Treatment Diagnosis double vision, headache, hyperglycemia Onset Date 04/06/25 M3 PT-IP Subjective Start: 04/07/25 13:44 Freq: NEEDED Status: Active Protocol: Document 04/07/25 11:58 DLM (Rec: 04/07/25 14:04 DLM Desktop) Subjective Physical Therapy Visit Type Type Initial Evaluation Visit Start Time : Visit Stop Time 11:58 Notes 33 min Number of ENGAGEMENT DIRECTOR Visits 0 Physical Therapy Visit Comments Patient Comments she noted changes in her vision for about the past week , she reports seeing double which improves if she covers left eye Patient Goals Get better and go home Therapy Pain Assessment Pain When Pain Assessed During Mobility Pain Present Pain Present Denied Pain M4 PT-IP Mobility and Gait Start: 04/07/25 13:44 Freq: NEEDED Status: Active Protocol: Document 04/07/25 11:58 DLM (Rec: 04/07/25 14:04 DLM Desktop) PT-Bed Mobility Assessment Rolling Type of Rolling Bilateral Level of Assist Independent Supine to Sit Supine to Sit Independent Sit to Supine Sit to Supine Independent Scooting Scooting to Edge of Independent Bed Scooting Up and Down Independent in Bed PT-Transfer Assessment Sit to and From Stand Sit to and from Independent,Use of Upper Extremities Stand Equipment Transfer Assistive Gait Belt Device Transfers Transfer Destination Chair Transfer Technique Stand Step Pivot Transfer Ability Level of Assist Independent,Use of Upper Extremities Gait Assessment Gait Gait Assistance Standby Assistance Required: Distance (Feet) 200 Assistive Devices Assistive Device Gait Belt Gait Deviations General Gait Pattern Decreased Feet Clearance,Wide Based Gait Comments Gait Comments her ankle weakness causes a mild steppage gait and intermittent decreased feet clearance, she tends to externally rotate feet and has wide base of support Gait trail performed with straight cane which improved the quality of her gait pattern. Stair Climbing Assessment Evaluation Level of Assist On Standby Assistance Stairs Devices Stair Climbing Left Railing,Right Railing Assistive Devices Technique/Endurance Stair Climbing Ascend and Descend Direction Stair Climbing Step to Step Technique Number of Steps 3 Climbed Query Text: Stair Climbing Set # 1 Repetitions (reps) Comments Stair Climbing she reports hx of step-to gait on stairs since right Comments femur fx pt reports left knee pain going down stairs that is less if she goes down sideways with one rail PT-Balance Assessment Sitting Balance and Reactions Static Sitting Normal Balance Ability Dynamic Sitting Normal Balance Ability Standing Balance and Reactions Static Standing Good Balance Ability Dynamic Standing Fair Balance Ability Comments Other Balance Tests/ standing balance effected by her ankle weakness Deviations/Treatment : M5 PT-IP Objective Assessments Start: 04/07/25 13:44 Freq: NEEDED Status: Active Protocol: Document 04/07/25 11:58 DLM (Rec: 04/07/25 14:04 DLM Desktop) Orientation Orientation/Cognition Level of Alertness Alert Orientation Name,Age,Birthday,Month,Date,Year,Day of Week,Place, Situation Language Function No Deficits Noted Ability Safety Awareness Understands Safety Issues Memory Description No Deficits Noted Comments double vision continues Gross Range of Motion Upper Extremity ROM Assessment Within Functional Limits Lower Extremity ROM Assessment Within Functional Limits Strength Upper Extremity Strength Assessment Within Functional Limits Lower Extremity Strength Assessment Bilaterally Impaired Ankle DF right 2+/5, left 3+/5 Comments Strength Comments tremulous muscle activity with resisted muscle testing left LE Coordination Assessment Gross Coordination Gross Coordination WNL Sensation Assessment Sensation Gross Sensation WNL Muscle Tone Comments Muscle Tone Comments mild tremors head/neck and left side M6 PT-IP Treatment Start: 04/07/25 13:44 Freq: NEEDED Status: Active Protocol: Document 04/07/25 11:58 DLM (Rec: 04/07/25 14:04 DLM Desktop) Physical Therapy Treatment Exercises Exercises Ankle Pumps Education Education Provided Safety Other Treatments Other Treatment recommend pt use cane for gait to decrease her fall Performed risks with ankle weakness and decreased vision M7 PT-IP Assessment and Plan Start: 04/07/25 13:44 Freq: NEEDED Status: Active Protocol: Document 04/07/25 11:58 DLM (Rec: 04/07/25 14:04 DLM Desktop) PT Summary Assessment and Plan Potential Rehabilitation Good Potential Status of Condition Evolving at Evaluation Summary Impairments Strength,Balance,Activity Tolerance Progress Towards Safe For Discharge Goals Assessment Summary Maria T is alert and resting in bed today. She reports ongoing double vision today that started about a week ago. Her head CT and MRI are negative for CVA. 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 Clinical testing shows bilateral ankle weakness with right worse than left. Pt reports having this weakness since her fall and right femur fx 2021. Pt is able to ambulate in the arzate without device with gait deviations related to her ankle weakness. Gait training performed with straight cane which improves her quality of gait. Recommend pt use the cane more often especially for community gait. She is at increased risk of falls due to the combination of ankle weakness and new vision impairments. Recommend discharge home with assist from Spouse. Training completed this visit and Physical Therapy will be discharged. Recommend Occupational Therapy order for additional vision assessment if needed. Frequency of Treatment Frequency Of Discharge Treatment Treatment Plan Other training completed this visit Recommendations and Recommend Occupational Therapy evaluation if further Next Treatment Focus vision assessment needed Precautions Other Precautions fall risk, impaired vision Recommendations To Nursing Amount of Assist Standby Assistance Needed Discharge Recommendations PT Discharge Home with Assistance Recommendations Other Discharge has assist from Spouse, recommend she use a cane for Recommendations gait Transportation Needs Private Vehicle at Discharge - PT assist one
--- NOTE | 2025-04-07 12:05 | CM.DANOTE ---
Initial DCP Assessment Note. Review EMR and PT Interview. Per Chart review, Independnet with ADL's. Payor:??Jose BHATTIO PCP: Summary & Plan:?55 yo Female arrived to ED via POV c/o Chest Pain. Admitted OBS. Dx. Chest Pain. Plan: Serial Troponin's, Echo. POssible Stress Test. Discharge home when improved. Discharge Planning/Care Management CM Discharge Assessment Start: 04/06/25 12:54 Freq: Status: Active Protocol: Document 04/07/25 12:03 (Rec: 04/07/25 12:05 [id number]) Discharge Planning Assessment Assigned Discharge Christina Cruz RN CM Environmental Associate Provider Dr. Johny Garcia Advance Directives? No Advance Directives No on File History Provided By Patient,Medical Record Prior Living House Arrangements Household Members spouse Independent with ADL Yes 's Is patient alert and Yes oriented? Caregiver for No Another Barriers to No Discharge Transportation Dtr bedside and available for transport at d/c Arrangement Review Status In Process Please Provide Date 04/07/25 Initial DC Assessment Was Performed Next Review Type Continued Stay Review
--- NOTE | 2025-04-07 14:23 | P.DS_ITS ---
History of Present Illness History of Present Illness Chief complaint: new onset double vision, headache x1 week Narrative: CC: Headache and diplopia HPI:? 74-year-old female with history of type 2 diabetes and history of DVT after femur fracture presents with 7 days of severe headache associated with nausea and diplopia. The diplopia is described as [id number] double vision that does not resolve completely when she closes one eye. Onset of headache was severe but not thunderclap. Patient reports the headache is now localized to the right side of her head but was previously generalized. The double vision was initially very strong and she couldn't focus at all. No history of headaches or migraines. No history of stroke or TIA. Patient has been taking oxycodone for three years for leg pain and has been taking oxycodone with trazodone as usual, which has not helped the headache. Reports being tired and unsteady on her feet since hip replacement and foot fracture, but not more so than usual. Uses ice packs on feet at night due to pins and needles sensation since foot fracture. Patient admits to medication non-adherence: did not take insulin last night thinking it might be causing headache, reduced insulin from prescribed 20 units to 10 units due to hot flashes, takes half of prescribed levothyroxine dose. ? Medical Hx: T2DM Hypothyroid High cholesterol Hx femur fracture August 25, 2021 History of fracture of foot x2 Kidney stones Osteoarthritis, right shoulder Osteoporosis Hx DVT Hx foot sores that weren't healing ? Surgical Hx: Hx of section Hx of tubal ligation History of right hip replacement Hx of hysterectomy Hx surgical repair of femur ? Medications: Insulin glargine (Besaglar) Levothyroxine Oxycodone Trazodone ? Allergies: cephalexin, naproxen, gabapentin Social Hx: Lives with spouse Retired from [employer] in [facility]. Has parakeets (Ms. Day and Mr. Bonilla). Never smoked, never drinks alcohol, no coffee, no other substances. Family Hx: Mother: Diabetes mellitus, Osteoporosis. 2023. Father: Medical history unknown ? ROS: negative other than as noted in HPI ? Imaging/EC/[address] IMPRESSION: No acute intracranial pathology. Age related volume loss and mild white matter small vessel chronic ischemic changes. ? 04/06 Head/Neck CTA IMPRESSION: 1. No significant intracranial arterial abnormality is seen. 2. [id number]-[id number] atherosclerotic calcifications involving origins of bilateral internal carotid arteries with less than 50% stenosis. 3. No hemodynamically significant stenosis is seen within the arteries of the neck ? 04/06 Brain MRI IMPRESSION: Age-appropriate [id number] small vessel ischemic change. No acute intracranial process. ? 04/06 ECG Interpretive Statements: Normal sinus rhythm ? Labs reviewed and notable for: CBC WNL Coag WNL Troponin WNL Protein WNL Low: Sodium (133), chloride (96) High: BUN (19), BUN/Creatinine Ratio (22.4), Glucose (523 at 12:42, then 279 at 14:53), alkphos (203), CK 277 ? Vitals reviewed and notable for: BP: 188/96, 203/88, 178/75, 192/90, 183/83, 184/84 HR: 110, 96, 101 All other vitals WNL ? Physical Exam: GEN: Alert and oriented X4. No acute distress. Well-nourished. Fluent speech. A ppears worried. EYES: PERRL. Disconjugate gaze with some horizontal nystagmus, right eye doesn't appear to abduct past midline. HENT: Moist mucus membranes, no conjunctival injection or icterus, normal neck ROM. No facial droop or asymmetry, tongue protrudes to midline RESP: CTAB, normal work of breathing, no cyanosis appreciated. CV: No peripheral edema, RRR. ABD: Soft, non-tender, non-distended, no palpable masses. EXT: No edema, clubbing or cyanosis. SKIN: No rashes or lesions. NEURO: No focal neurologic deficits. PSYCH: Cooperative, appropriate mood and affect. ? A/P: 74-year-old female with poorly controlled type 2 diabetes, medication non- adherence, and hypertension presenting with acute onset headache and diplopia now admitted for workup of symptoms. Laboratory findings reveal severe hyperglycemia with glucose of 523 mg/dL, mild hyponatremia, and elevated alkaline phosphatase. Imaging studies including head CT, CTA, and MRI show no acute intracranial pathology but reveal chronic small vessel ischemic changes and mild carotid atherosclerosis. Physical examination notable for disconjugate gaze with horizontal nystagmus and apparent right sixth cranial nerve palsy with inability to abduct right eye past midline. ? #Headache and Diplopia Acute onset headache with diplopia in 74-year-old female with multiple vascular risk factors. Physical examination reveals apparent sixth cranial nerve palsy. Initial imaging negative for acute intracranial pathology. ? #Poorly Controlled Type 2 Diabetes Mellitus Severe hyperglycemia with glucose 523 mg/dL in setting of medication non- adherence. Patient self-reduced insulin dose and missed doses. -Hemoglobin A1c 13 ? #Hypertension Persistently elevated blood pressures with systolic readings >180 mmHg and diastolic >90 mmHg. -Monitor blood pressure -Start Lisinopril 5 mg PO daily ? #Hypothyroidism -TSH and Free T4 -Patient admits to taking half of prescribed levothyroxine dose, medication adherence counseling ? #History of DVT -Patient not on anticoagulation despite indication due to kidney stones ? #Osteoarthritis and Chronic Pain -Continue current pain management with oxycodone ? Code Status: Full code ? IMAGING: CTH: No acute intracranial pathology. Age related volume loss and mild white matter small vessel chronic ischemic changes. CTA: 1. No significant intracranial arterial abnormality is seen. 2. Rtwn-hk-emfitout atherosclerotic calcifications involving origins of bilateral internal carotid arteries with less than 50% stenosis. 3. No hemodynamically significant stenosis is seen within the arteries of the neck. MR Brain: Age-appropriate wjln-gl-[id number] small vessel ischemic change. No acute intracranial process. Hospital course: She was admitted with diplopia. There was concern from the clinic where she was trying to get an appointment for an acute stroke. This is ruled out with imaging. Her A1c was found to be extremely elevated. 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 She was discussed briefly with Neurology at [facility]. The differential as likely diabetic microvascular insult causing extraocular muscle palsy versus a subacute myasthenia syndrome. The patient did give a timeline of about a week. No stroke was identified and [employer] imaging. She has a expedited follow up appointment with a new primary care provider in [facility]. She will require a expedited referral to Neurology. There is a question of whether or not she was still has coverage to see her previous primary care doctor, Dr. Jacobs. They will be calling him today, in which case he may be able to refer [facility] more [facility] [place]. [N], the patient has documentation of a left ventricle ejection fracture less than or equal to 40%, or moderately or severely reduced left ventricle systolic function. [N], the patient has a history of heart transplant or left ventricular assist device (LVAD). [N], the patient was prescribed an TALAT inhibitor at discharge or is already being taken. The patient was not prescribed an TALAT-inhibitor because of the following exception: NA. [N], the patient was prescribed Metoprolol succinate, bisoprolol, or carvedilol at discharge. The patient was not prescribed Metoprolol succinate, bisoprolol, or carvedilol at discharge because of the following exception: NA. Discharge Providers Provider Date of admission: 04/06/25 12: Discharge Date: 04/07/25 Primary care physician: Shanae Lee PA-C Consults: 04/06/25 15:10 Consult to Physical Therapy Evaluate & Treat Comment: Physician Instructions: Evaluate and Treat Discharge provider: Mayank Suazo MD Summary Hospital Course Discharge Diagnosis: Above. Status at Discharge Cognitive/behavioral status at discharge: oriented Functional status at discharge: independent ambulation Overall status at discharge: patient is back to baseline Time Spent with Patient Time spent: Greater than 30 minutes Exam Vital Signs (past 8 hours): - 04/07/25 07:00 04/07/25 11:27 Temperature 98.5 F 99.3 F Pulse Rate 73 74 Respiratory Rate 16 16 Blood Pressure 160/86 H 171/87 H Pulse Oximetry 97 98 Oxygen Flow Rate 0 0 Oxygen Delivery Method Room Air Oxygen Flow Rate 0 Narrative Exam Narrative: GEN: Alert and oriented X4. No acute distress. Well-nourished. Fluent speech. A ppears worried. EYES: PERRL. Disconjugate gaze with some horizontal nystagmus, right eye doesn't appear to abduct past midline. HENT: Moist mucus membranes, no conjunctival injection or icterus, normal neck ROM. No facial droop or asymmetry, tongue protrudes to midline RESP: CTAB, normal work of breathing, no cyanosis appreciated. CV: No peripheral edema, RRR. ABD: Soft, non-tender, non-distended, no palpable masses. EXT: No edema, clubbing or cyanosis. SKIN: No rashes or lesions. NEURO: other than EOMI, normal MS and speech. No facial droop. Objective ECG Impression: Rate: 85 P: 69 AL: 164 QRS: -4 QRSD: 86 T: 52 QT: 368 QTc: 437 Interpretive Statements Normal sinus rhythm Labs 04/07/25 04:25 04/07/25 04:25 Labs: Laboratory Results - last 24 hr 04/06/25 04/06/25 04/06/25 09:45 11:24 14:53 WBC RBC Hgb Hct MCV MCH MCHC RDW Plt Count Neut % (Auto) Lymph % (Auto) [place] % (Auto) Eos % (Auto) Baso % (Auto) Neut # (Auto) Lymph # (Auto) [place] # (Auto) Eos # (Auto) Baso # (Auto) ESR 12 Sodium Potassium Chloride Carbon Dioxide BUN Creatinine Estimated GFR BUN/Creatinine Ratio Glucose POC Whole Bld Glucose 279 H D Hemoglobin A1c 13.4 H Calcium C-Reactive Protein 0.6 TSH 2.41 U Opiates 300ng/mL cut Negative Ur Oxycodone Screen Positive H Urine Methadone Screen Negative Ur Barbiturates Screen Negative U Tricyclic Antidepress Negative Ur Phencyclidine Scrn Negative Ur Amphetamines Screen Negative U Methamphetamines Scrn Negative Ur MDMA Scrn (Ecstasy) Negative U Benzodiazepines Scrn Negative Urine Cocaine Screen Negative U Marijuana (THC) Screen Negative Urine pH Normal Urine Specific [place] Nn Ur Creatinine Normal 04/06/25 04/06/25 04/07/25 16:41 20:06 04:25 WBC 5.7 RBC 4.47 Hgb 12.8 Hct 37.9 MCV 85.0 MCH 28.8 MCHC 33.9 RDW 13.0 Plt Count 237 Neut % (Auto) 59.2 Lymph % (Auto) 29.1 [place] % (Auto) 6.3 Eos % (Auto) 2.5 Baso % (Auto) 2.9 H Neut # (Auto) 3400 Lymph # (Auto) 1600 [place] # (Auto) 400 Eos # (Auto) 100 Baso # (Auto) 200 H ESR Sodium 135 L Potassium 3.9 Chloride 103 Carbon Dioxide 27 BUN 17 Creatinine 0.62 Estimated GFR > 60 BUN/Creatinine Ratio 27.4 H Glucose 234 H D POC Whole Bld Glucose 291 H 407 H D Hemoglobin A1c Calcium 8.3 L C-Reactive Protein TSH U Opiates 300ng/mL cut Ur Oxycodone Screen Urine Methadone Screen Ur Barbiturates Screen U Tricyclic Antidepress Ur Phencyclidine Scrn Ur Amphetamines Screen U Methamphetamines Scrn Ur MDMA Scrn (Ecstasy) U Benzodiazepines Scrn Urine Cocaine Screen U Marijuana (THC) Screen Urine pH Urine Specific [place] Ur Creatinine 04/07/25 04/07/25 07:40 11:31 WBC RBC Hgb Hct MCV MCH MCHC RDW Plt Count Neut % (Auto) Lymph % (Auto) [place] % (Auto) Eos % (Auto) Baso % (Auto) Neut # (Auto) Lymph # (Auto) [place] # (Auto) Eos # (Auto) Baso # (Auto) ESR Sodium Potassium Chloride Carbon Dioxide BUN Creatinine Estimated GFR BUN/Creatinine Ratio Glucose POC Whole Bld Glucose 242 H D 287 H Hemoglobin A1c Calcium C-Reactive Protein TSH U Opiates 300ng/mL cut Ur Oxycodone Screen Urine Methadone Screen Ur Barbiturates Screen U Tricyclic Antidepress Ur Phencyclidine Scrn Ur Amphetamines Screen U Methamphetamines Scrn Ur MDMA Scrn (Ecstasy) U Benzodiazepines Scrn Urine Cocaine Screen U Marijuana (THC) Screen Urine pH Urine Specific [place] Ur Creatinine PFSH Medical History History of fracture of foot Kidney stones Surgical History Hx of section Hx of tubal ligation History of right hip replacement Hx of hysterectomy Family History Mother Diabetes mellitus Osteoporosis Father Medical history unknown Social History marital status: household members: spouse lives independently: Yes pets and animals: Yes (Two parakeets, Mr. Bonilla and Ms. Day) alcohol intake: never Discharge Assessment & Plan Assessment and Plan Plan of Treatment: Discjarge with close PCP FU and neuro referral. Discharge Plan Discharge Plan Patient Disposition: Home Provider Discharge Comment: stable for discharge home, close follow up with PCP Dr. Jacobs as well as referral to Neurology for ophthalmoplegia. Discharge orders & Medications Prescriptions: Continued Eliquis DVT-PE Treat 30D Start 5 mg (74 tabs) tablets,dose pack See Rx Instructions .ROUTE .COMPLEX Qty: 74 0RF Rx Instructions: orally per package directions oxycodone 5 mg tablet 5 mg PO Q6H PRN (Reason: pain) Qty: 14 0RF tamsulosin [Flomax] 0.4 mg capsule 0.4 mg PO DAILY Qty: 10 0RF polyethylene glycol 3350 17 gram Powder In Packet 17 gm PO DAILY Qty: 10 0RF aspirin 81 mg Tablet,Delayed Release (Dr/Ec) 81 mg PO BID Qty: 10 0RF oxycodone 5 mg Tablet 5 mg PO Q3HR PRN (Reason: Pain, Moderate (4-6)) Qty: 30 0RF metoprolol tartrate 25 mg Tablet 25 mg PO BID Qty: 10 0RF insulin glargine [Lantus Solostar U-100 Insulin] 100 unit/mL (3 mL) Insulin Pen 10 unit SUBCUT 2100 Qty: 15 0RF ketorolac 10 mg tablet 10 mg PO Q6H PRN (Reason: pain) Qty: 14 0RF levothyroxine [Synthroid] 25 mcg Tablet 12.5 mcg PO DAILY@0600 trazodone 100 mg tablet 100 mg PO ONCE PM Follow up/Referrals: Shanae Lee, PAPrisca [Primary Care Provider, Medical] Discharge Health Status Multidrug resistant organism: No MDRO Diet/Activity/Treatments Diet: Carb-consistent/Diabetic Visit Report/Discharge Packet Stand Alone Forms: Patient Portal/API, Stroke Signs & Symptoms Discharge Data Primary Care Provider: Shanae Lee Attending Provider: Mayank Suazo Admit Date/Time: 04/06/25 12:25 Quality VTE Deep Vein Thrombosis/Pulmonary Embolism Present on Admission: No
--- NOTE | 2025-04-07 14:53 | CM.DPC ---
Addendum entered by Christina Cruz RN 04/07/25 15:38: [facility] [address] [facility] [address] [place] [address] April 16, 2025 ? Saturday at 3:13 PM Nurse Practitioner: Carmen Crowder Original Note: Transitional Care Team is working on obtaining a Follow up Appointment.
== END 2025-04-07 17:05 | disposition home or self-care (01) ==
LOC: ED 12:26 → AC 12:31
PROVIDERS: Admitting Provider Hospitalist; Emergency Provider Emergency Medicine; PCP Physician Assistant; Referring Provider Emergency Medicine; Visit Provider Hospitalist
DX: H53.2 Diplopia (principal); R51.9 Headache, unspecified; E11.65 Type 2 diabetes mellitus with hyperglycemia; N20.0 Calculus of kidney; I10 Essential (primary) hypertension; E87.1 Hypo-osmolality and hyponatremia; M19.90 Unspecified osteoarthritis, unspecified site; G89.29 Other chronic pain; Z86.718 Personal history of other venous thrombosis and embolism; Z91.148 Patient's other noncompliance with medication regimen for other reason; Z79.4 Long term (current) use of insulin
CPT/HCPCS: 36415; 70450; 70496; 70498; 70551; 80048; 80053; 80305; 80320; 82550; 82962; 83036; 84443; 84484; 85025; 85610; 85651; 85730; 86140; 93005; 96360; 96361; 96372; 97161; 99285; G0378; J1815; J7030; Q9967